=== PATIENT | female | born 1945 | race Caucasian/White ===

== ENCOUNTER → 2018-04-15 12:51 | Outpatient (CLI) | payer MEDICARE, SELFPAY ==
[2018-04-15 14:41] LABS: Hemoglobin A1c 5.7 % (4.2-6.3)
[2018-04-15 14:42] LABS: Anion Gap 8 (5-15); BUN 17 mg/dL (7-18); BUN/Creat Ratio 14.2 RATIO (10-20); Calcium,Total 8.7 mg/dL (8.5-10.1); Chloride 106 mmol/L (98-107); Cholesterol 141 mg/dL (200); EST Glomerular Filtration Rate 47 mL/min (>60); Est Glom Filt Rate - Afr Amer 57 mL/min (>60); Glucose 106 mg/dL (74-106); High Density Lipoprotein 67 mg/dL; Potassium 4.4 mmol/L (3.5-5.1); Sodium Level 140 mmol/L (136-145); Triglycerides 81 mg/dL; Very Low Density Lipoprotein 16 mg/dL (5-40)
[2018-04-15 14:47] LABS: Microalbumin,Random Urine 25.5 mg/L (NO RANGE EST.); Microalbumin:Creatinine Ratio 30.9 mg/g CRE (<30 mg/g CRE)
== END ==
PROVIDERS: Family Provider Internal Medicine; PCP Internal Medicine; Referring Provider Internal Medicine; Visit Provider Internal Medicine
DX: N18.3 Chronic kidney disease, stage 3 (moderate) (principal); Z79.899 Other long term (current) drug therapy
CPT/HCPCS: 80048; 80061; 82043; 82570; 83036

== ENCOUNTER → 2018-04-17 14:33 | Outpatient (CLI) | payer MEDICARE, SELFPAY | PROVIDERS: Family Provider Internal Medicine; PCP Internal Medicine; Referring Provider Nurse Practitioner; Visit Provider Nurse Practitioner | DX: N89.8 Other specified noninflammatory disorders of vagina (principal) | CPT/HCPCS: 87205 ==

== ENCOUNTER → 2018-10-18 | Outpatient (CLI) | payer MEDICARE, SELFPAY ==
[2015-06-28 09:12] VITALS: BMI 40.5
[2018-10-18 16:15] LABS: Hematocrit 35.5 % (37-47); Hemoglobin 11.3 g/dl (12.0-15.0); Mean Corp Hgb Conc 31.8 g/gl (32-36); Mean Corpuscular Hgb 30.9 pg (27.0-32.0); Mean Platelet Vol. 9.4 fl (6.2-12.0); Platelet Count 236 K/mm3 (150-450); RBC Distribution Width CV 13.1 % (11.6-14.6); Red Blood Count 3.66 M/mm3 (4.2-5.4); White Blood Count 6.1 K/mm3 (4.4-11.0)
[2018-10-18 16:16] LABS: Scan Indicated on CBC? Y/N NO
[2018-10-18 16:36] LABS: Vitamin B12 517 pg/mL (211-911)
[2018-10-18 17:07] LABS: Iron 54 ug/dL (50-170); Iron Binding Capacity,Total 397 ug/dL (250-450); PERCENT IRON SATURATION 13.6 % (15.0-55.0)
[2018-10-21 20:07] LABS: PROEL- A/G Ratio 1.3 (0.7-1.7); PROEL- Albumin 3.5 g/dL (2.9-4.4); PROEL- Alpha-1 Globulin 0.3 g/dL (0.0-0.4); PROEL- Alpha-2 Globulin 0.8 g/dL (0.4-1.0); PROEL- Gamma Globulin 0.7 g/dL (0.4-1.8); PROEL- Globulin, Total 2.8 g/dL (2.2-3.9); PROEL- TOTAL PROTEIN 6.3 g/dL (6.0-8.5)
== END | disposition home or self-care (01) ==
PROVIDERS: Family Provider Internal Medicine; PCP Internal Medicine; Referring Provider Internal Medicine; Visit Provider Internal Medicine
DX: D64.9 Anemia, unspecified (principal)
CPT/HCPCS: 82607; 82746; 83540; 83550; 84165; 85027

== ENCOUNTER → 2018-10-30 | Outpatient (CLI) | payer MEDICARE, SELFPAY | END | disposition home or self-care (01) | LOC: LABSPEC 15:57 | PROVIDERS: Family Provider Internal Medicine; PCP Internal Medicine; Referring Provider Nurse Practitioner; Visit Provider Nurse Practitioner | DX: Z12.11 Encounter for screening for malignant neoplasm of colon (principal) | CPT/HCPCS: 82274 ==

== ENCOUNTER → 2018-11-25 | Outpatient (CLI) | payer MEDICARE, SELFPAY ==
[2015-06-28 09:12] VITALS: BMI 40.5
[2018-11-25 16:14] LABS: Anion Gap 9 (5-15); BUN 22 mg/dL (7-18); BUN/Creat Ratio 16.7 RATIO (10-20); Calcium,Total 8.6 mg/dL (8.5-10.1); Chloride 108 mmol/L (98-107); Creatinine, Serum 1.32 mg/dL (0.55-1.02); EST Glomerular Filtration Rate 42 mL/min (>60); Est Glom Filt Rate - Afr Amer 51 mL/min (>60); Glucose 96 mg/dL (74-106); Sodium Level 139 mmol/L (136-145)
[2018-11-25 16:43] LABS: Hematocrit 35.7 % (37-47); Hemoglobin 11.3 g/dl (12.0-15.0); Mean Corp Hgb Conc 31.7 g/gl (32-36); Mean Corpuscular Hgb 30.9 pg (27.0-32.0); Mean Corpuscular Volume 97.5 fL (81-99); Mean Platelet Vol. 9.4 fl (6.2-12.0); Platelet Count 210 K/mm3 (150-450); RBC Distribution Width CV 12.8 % (11.6-14.6); RBC Distribution Width SD 43.8 fl (35.1-43.9); Red Blood Count 3.66 M/mm3 (4.2-5.4)
[2018-11-25 16:58] LABS: Hemoglobin A1c 6.9 % (4.2-6.3)
[2018-11-25 17:27] LABS: Scan Indicated on CBC? Y/N NO
== END | disposition home or self-care (01) ==
LOC: LABSPEC 15:42
PROVIDERS: Family Provider Internal Medicine; PCP Internal Medicine; Referring Provider Internal Medicine; Visit Provider Internal Medicine
DX: N18.3 Chronic kidney disease, stage 3 (moderate) (principal)
CPT/HCPCS: 80048; 83036; 85027; 96523; A4216

== ENCOUNTER → 2019-07-14 12:55 | Outpatient (CLI) | payer MEDICARE, SELFPAY ==
[2015-06-28 09:12] VITALS: BMI 40.5
[2019-07-14 13:28] LABS: ALB/GLOB Ratio 1.1 RATIO (0.9-2.4); AST(SGOT) 22 U/L (15-37); Alanine Aminotransfer ALT/SGPT 23 U/L (13-56); Albumin, Serum 3.6 g/dL (3.2-5.0); Alkaline Phosphatase 84 U/L (45-117); Anion Gap 6 (5-15); BUN 17 mg/dL (7-18); BUN/Creat Ratio 14.7 RATIO (10-20); Chloride 110 mmol/L (98-107); Cholesterol 147 mg/dL (200); Creatinine, Serum 1.16 mg/dL (0.55-1.02); EST Glomerular Filtration Rate 49 mL/min (>60); Est Glom Filt Rate - Afr Amer 59 mL/min (>60); Globulin 3.2 g/dL (2.2-4.2); Glucose 97 mg/dL (74-106); High Density Lipoprotein 70 mg/dL; Potassium 4.8 mmol/L (3.5-5.1); Protein, Total 6.8 g/dL (6.4-8.2); Sodium Level 143 mmol/L (136-145); Triglycerides 107 mg/dL; Very Low Density Lipoprotein 21 mg/dL (5-40)
[2019-07-14 13:32] LABS: Hemoglobin A1c 5.7 % (4.2-6.3)
[2019-07-14 13:35] LABS: Microalbumin,Random Urine 14.1 mg/L (NO RANGE EST.); Microalbumin:Creatinine Ratio 17.2 mg/g CRE (<30 mg/g CRE)
== END ==
PROVIDERS: Referring Provider Nurse Practitioner; Visit Provider Nurse Practitioner
DX: E11.22 Type 2 diabetes mellitus with diabetic chronic kidney disease (principal); N18.3 Chronic kidney disease, stage 3 (moderate); E78.5 Hyperlipidemia, unspecified
CPT/HCPCS: 80053; 80061; 82043; 82570; 83036

== ENCOUNTER → 2020-03-09 | Outpatient (CLI) | payer MEDICARE, SELFPAY ==
[2015-06-28 09:12] VITALS: BMI 40.5
[2020-03-09 16:52] LABS: Anion Gap 8 (5-15); BUN 17 mg/dL (7-18); BUN/Creat Ratio 13.7 RATIO (10-20); Calcium,Total 9.1 mg/dL (8.5-10.1); Chloride 106 mmol/L (98-107); Creatinine, Serum 1.24 mg/dL (0.55-1.02); EST Glomerular Filtration Rate 45 mL/min (>60); Est Glom Filt Rate - Afr Amer 55 mL/min (>60); Glucose 80 mg/dL (74-106); Potassium 4.8 mmol/L (3.5-5.1); Sodium Level 142 mmol/L (136-145)
[2020-03-09 16:59] LABS: Hemoglobin A1c 5.5 % (3.8-5.6)
== END | disposition home or self-care (01) ==
LOC: LABSPEC 15:36
PROVIDERS: PCP Internal Medicine; Referring Provider Internal Medicine; Visit Provider Internal Medicine
DX: E11.22 Type 2 diabetes mellitus with diabetic chronic kidney disease (principal); N18.3 Chronic kidney disease, stage 3 (moderate)
CPT/HCPCS: 80048; 83036

== ENCOUNTER → 2020-09-22 | Outpatient (CLI) | payer MEDICARE, SELFPAY ==
[2015-06-28 09:12] VITALS: BMI 40.5
[2020-09-22 11:29] LABS: Hemoglobin A1c 5.5 % (3.8-5.6)
[2020-09-22 11:33] LABS: Cholesterol 151 mg/dL (200); High Density Lipoprotein 77 mg/dL; Thyroid Stim Hormone (TSH) 1.56 uIU/mL (0.358-3.74); Triglycerides 85 mg/dL; Very Low Density Lipoprotein 17 mg/dL (5-40)
[2020-09-22 11:34] LABS: Microalbumin,Random Urine 24.2 mg/L (NO RANGE EST.); Microalbumin:Creatinine Ratio 37.5 mg/g CRE (<30 mg/g CRE)
== END | disposition home or self-care (01) ==
LOC: LABSPEC 10:38
PROVIDERS: PCP Internal Medicine; Referring Provider Internal Medicine; Visit Provider Internal Medicine
DX: E78.5 Hyperlipidemia, unspecified (principal); R60.0 Localized edema; E11.22 Type 2 diabetes mellitus with diabetic chronic kidney disease; N18.30 Chronic kidney disease, stage 3 unspecified
CPT/HCPCS: 80061; 82043; 82570; 83036; 84443

== ENCOUNTER → 2021-03-16 | Outpatient (CLI) | payer MEDICARE, SELFPAY ==
[2021-03-16 13:26] LABS: Hemoglobin A1c 5.7 % (3.8-5.6)
== END | disposition home or self-care (01) ==
LOC: LABSPEC 12:32
PROVIDERS: PCP Internal Medicine; Visit Provider Internal Medicine
DX: E11.22 Type 2 diabetes mellitus with diabetic chronic kidney disease (principal); N18.30 Chronic kidney disease, stage 3 unspecified
CPT/HCPCS: 83036

== ENCOUNTER 2022-10-27 18:05 | Inpatient (IN) | payer MEDICARE, SELFPAY ==
[2022-10-27 18:23] VITALS: BP 119/58; PULSE 90; PULSE 91; RESP 16; TEMP 36.4; O2SAT 97; BMI 32.5
--- NOTE | 2022-10-27 19:43 | HP.PCM_ITS ---
HPI - General General Date of Admission: 10/27/22 Date of Service: 10/30/22 Chief Complaint: Here for rehabilitation. HPI Narrative BRIAN ROSALES, is a 77 Female who presents with followin10/23/2022 Admit to [facility]. 10/23/2022 Dr. Bright performed left total hip arthroplasty direct anterior approach. 10/24/2022 Pain limiting PT/OT, tolerating diet, passing flatus. 10/25/2022 Pain control. PT/OT. SCD's/DVT prophylaxis. 10/27/2022 Admit to TCU with debility, here for rehabilitation, strengthening, prior to discharge home alone. [facility] Medical History Chronic kidney disease Debility Diabetes mellitus Fibromyalgia GERD (gastroesophageal reflux disease) Hyperlipidemia Hypertension Osteoarthritis Osteoarthritis of left hip Rheumatoid arthritis Vertigo Home Medications albuterol sulfate 90 mcg/actuation aerosol inhaler (Ventolin HFA) 2 puff inhalation Q6H PRN PRN Wheezing 06/23/15 [History Last Taken Unknown] gabapentin 100 mg capsule 100 mg PO TIDCM Check with primary doctor 06/23/15 [History Last Taken Unknown] hydrochlorothiazide 25 mg tablet 25 mg PO DAILY Check with primary doctor 06/23/15 [History Last Taken Unknown] hydroxychloroquine 200 mg tablet 200 mg PO DAILYCM Check with primary doctor 06/23/15 [History Last Taken Unknown] lisinopril 2.5 mg tablet 40 mg PO DAILY Check with primary doctor 06/23/15 [History Last Taken 06/28/15 07:30] metformin 1,000 mg tablet 1,000 mg PO DAILY Check with primary doctor 06/23/15 [History Last Taken Unknown] nortriptyline 25 mg capsule 50 mg PO QHS Check with primary doctor 06/23/15 [History Last Taken Unknown] omeprazole 20 mg capsule,delayed release 20 mg PO BID Check with primary doctor 06/23/15 [History Last Taken 06/28/15 07:30] simvastatin 10 mg tablet 40 mg PO QHS Check with primary doctor 06/23/15 [History Last Taken Unknown] aspirin 81 mg tablet 81 mg PO BID Check with primary doctor 10/27/22 [History Last Taken Unknown] diphenhydramine HCl 25 mg capsule (Benadryl) 25 mg PO Q6H PRN PRN ITCHING/HIVES 10/27/22 [History Last Taken Unknown] oxycodone 5 mg tablet 5 mg PO Q6H PRN Pain 10/27/22 [History Last Taken Unknown] Allergy/AdvReac Type Severity Reaction Status Date / Time cephalexin monohydrate Allergy Hives Verified 06/23/15 09:19 [From Keflex] codeine Allergy Hives Verified 06/23/15 09:19 ketorolac tromethamine Allergy Hives Verified 06/23/15 09:19 [From Toradol] latex Allergy Rash Verified 06/23/15 09:19 lorazepam Allergy Hives Verified 06/23/15 09:19 meloxicam [From Mobic] Allergy Chest Verified 06/23/15 09:19 tightness meperidine HCl [From Demerol] Allergy Hives Verified 06/23/15 09:19 morphine Allergy Hives Verified 06/23/15 09:19 moxifloxacin HCl Allergy Hives Verified 06/23/15 09:19 [From Avelox] oxycodone HCl [From Percocet] Allergy Hives Verified 06/23/15 09:19 phenobarbital Allergy Hives Verified 06/23/15 09:19 piroxicam [From Feldene] Allergy Hives Verified 06/23/15 09:19 propoxyphene napsylate Allergy Hives Verified 06/23/15 09:19 [From Darvocet-N] triamcinolone acetonide Allergy Rash Verified 06/28/15 09:08 [From Kenalog] celecoxib [From Celebrex] AdvReac Upset Verified 06/23/15 09:19 Stomach moxifloxacin AdvReac Nausea/Vom/ Verified 06/23/15 09:19 Diarrhea naproxen AdvReac Upset Verified 06/23/15 09:19 Stomach tramadol HCl [From Ultram] AdvReac Nausea/Vom/ Verified 06/23/15 09:19 Diarrhea Family History Father Heart disease COPD (chronic obstructive pulmonary disease) Mother Myocardial infarction Surgical History History of carpal tunnel surgery of right wrist History of section History of cholecystectomy History of rotator cuff surgery History of total bilateral knee replacement History of total left hip arthroplasty History of tubal ligation Social History household members: none Smoking Status: Current every day smoker tobacco type: cigarettes alcohol intake: never substance use type: does not use ROS Constitutional Constitutional: Denies chills, fever(s) or weight gain ENT HEENT: Denies headache(s), nasal congestion or nasal discharge Cardiovascular Cardiovascular: Denies chest pain or palpitations Respiratory/Chest Respiratory/Chest: Denies cough, excessive phlegm production or shortness of breath with exertion Gastrointestinal Gastrointestinal: Denies abdominal pain, nausea or vomiting Genitourinary Genitourinary: Denies dysuria Musculoskeletal Musculoskeletal: Denies joint pain or joint swelling Integumentary Integumentary: Denies rash or wounds Neurologic Neurologic: Denies focal weakness, numbness or tingling Psychiatric Psychiatric: Denies anxiety, auditory hallucinations, depression, homicidal ideation or suicidal ideation Vital Signs Vital Signs Vital Signs: 10/27/22 18:23 Temperature 97.5 F L Temperature Source Temporal Pulse Rate 91 Respiratory Rate 16 Blood Pressure 119/58 L Blood Pressure Mean 78 Blood Pressure Source Monitor Blood Pressure Position Semi-Fowlers Blood Pressure Location Left Arm Pulse Ox 97 Oxygen Delivery Method Room Air Physical Exam Const alert General Appearance: cooperative HEENT normocephalic Eyes PERRL and EOMs intact bilaterally Neck supple, no JVD and no carotid bruits Resp normal respiratory effort, normal air movement and clear to auscultation bilaterally Cardio regular rate and regular rhythm GI normal to inspection, nondistended, normoactive bowel sounds, non-tender and non-distended Extremity normal capillary refill General Extremity: Negative for edema Skin no rashes or lesions noted General Skin Exam: no breakdown Psych affect normal Appearance: appropriate Results Lab / Micro Data Result Diagrams: 10/30/22 05:10 10/28/22 07:05 Assessment & Plan Assessment/Plan (1) Debility: (2) Osteoarthritis of left hip: (3) History of total left hip arthroplasty: (4) Diabetes mellitus: (5) Fibromyalgia: (6) GERD (gastroesophageal reflux disease): (7) Hypertension: (8) Hyperlipidemia: (9) Chronic kidney disease: (10) Osteoarthritis: (11) Rheumatoid arthritis: (12) Vertigo: PLAN: Plan 77 year old female with below past medical history hospitalized for left total hip arthroplasty 10/23/[address] Bright, admitted to TCU with debility, here for rehabilitation, strengthening, prior to discharge home alone. * Debility - PT/OT. * Pain - Tylenol 1000mg q6h prn pain (1-3), Tramadol 50mg q6h prn pain (4-5), Oxycodone 10mg q4h prn pain (6-10). * Bowel - senna/colace 2 tablets bid, Dulcolax 10mg daily prn, MOM 30ml po x 1 prn. * Adult immunization - Administer pneumonia vaccine, covid19 vaccine, flu vaccine as appropriate. * DVT prophylaxis - Aspirin 81mg bid thru 11/23/2022. * Shortness of breath - Albuterol mdi 2 puffs q6h prn. * Hyperlipidemia - Atorvastatin 20mg qhs. * Hives - Benadryl 25mg q6h prn. * Allergic rhinitis - Flonase 1 spray nasal daily. * Fibromyalgia - Gabapentin 100mg tidcm, Nortriptyline 50mg qhs. * Hypertension - Lisinopril 40mg daily, HCTZ 25mg daily. * Rheumatoid arthritis - Plaquenil 200mg daily. * Diabetes Mellitus II - Metformin 1000mg daily. * GERD - Pantoprazole 40mg bid.
[2022-10-27] MEDS: Gabapentin 100 MG Capsule PO (21:06)
[2022-10-27] MEDS: Nortriptyline 25 MG Capsule 50 MG PO (21:07)
[2022-10-27] MEDS: Atorvastatin Calcium 20 MG Tablet PO (21:07)
[2022-10-27] MEDS: Senna/Docusate Sodium 1 Tablet 2 TABLET PO (21:08)
[2022-10-27] MEDS: oxyCODONE 5 MG Tablet PO (21:09)
--- NOTE | 2022-10-27 22:16 | NURSING ---
This nurse and EAGLE Retana witnessed pt stating she wanted her code status to be DNRCC-A, No Intubation. Pt is A&Ox3; able to state full name, birthday, month, year, and location with no difficulty.
[2022-10-28 05:00] VITALS: BP 144/55; PULSE 89
[2022-10-28] MEDS: Fluticasone 0.05% 1 SPRAY NASAL.SRY NASAL (06:01)
[2022-10-28] MEDS: Pantoprazole Sodium 20 MG Tablet PO ×2 (06:03→17:33)
[2022-10-28] MEDS: hydroCHLOROthiazide 25 MG Tablet PO (06:04)
[2022-10-28] MEDS: Lisinopril 40 MG Tablet PO (06:04)
[2022-10-28] MEDS: Senna/Docusate Sodium 1 Tablet 2 TABLET PO ×2 (06:07→17:33)
[2022-10-28] MEDS: Magnesium Hydroxide 30 ML UDC PO (06:13)
[2022-10-28 07:17] LABS: Absolute Lymphocyte Count 1.12 X10^3/uL (0.83-4.51); Absolute Neutrophil Count 5.4 X10^3/uL (2.0-7.7); Basophil# 0.04 X10^3/uL; Basophil% 0.5 % (0-1); Eosinophil# 0.48 X10^3/uL; Eosinophils% 5.8 % (0-5); Hematocrit 29.2 % (37-47); Hemoglobin 9.3 g/dL (12.0-15.0); Lymphocyte # 1.12 X10^3/ul (0.83-4.51); Lymphocyte % 13.5 % (19-41); Mean Corp Hgb Conc 31.8 g/dL (32-36); Mean Corpuscular Hgb 30.7 pg (27.0-32.0); Mean Corpuscular Volume 96.4 fL (81-99); Mean Platelet Vol. 8.9 fl (6.2-12.0); Monocyte% 14.5 % (0-10); NRBC Flagged by Analyzer 0 % (0-5); Neutrophil # 5.41 X10^3/uL (2.7-7.7); Neutrophil % 65.2 % (47-70); Platelet Count 244 K/mm3 (150-450); RBC Distribution Width CV 12.3 % (11.6-14.6); RBC Distribution Width SD 43.2 fl (35.1-43.9); Red Blood Count 3.03 M/mm3 (4.2-5.4); White Blood Count 8.3 K/mm3 (4.4-11.0)
[2022-10-28 07:57] LABS: Anion Gap 8 (5-15); BUN 34 mg/dL (7-18); BUN/Creat Ratio 25.2 RATIO (10-20); Calcium,Total 8.6 mg/dL (8.5-10.1); Chloride 102 mmol/L (98-107); Creatinine, Serum 1.35 mg/dL (0.55-1.02); EST Glomerular Filtration Rate 41 mL/min (>60); Est Glom Filt Rate - Afr Amer 49 mL/min (>60); Estimated Creatinine Clearance 25.86 ml/min; Glucose 116 mg/dL (74-106); Potassium 4.9 mmol/L (3.5-5.1); Sodium Level 134 mmol/L (136-145)
[2022-10-28] MEDS: Gabapentin 100 MG Capsule PO ×3 (08:34→17:32)
[2022-10-28] MEDS: Hydroxychloroquine 200 MG Tablet PO (08:35)
[2022-10-28] MEDS: Aspirin 81 MG TAB.CHEW PO ×2 (08:35→17:33)
[2022-10-28] MEDS: metFORMIN HCl 1,000 MG Tablet 1000 MG PO (08:36)
--- NOTE | 2022-10-28 09:55 | RAD_ITS ---
EXAM: XR ABDOMEN, 1 VIEW CLINICAL INDICATION: constipation and nausea TECHNIQUE: Frontal supine view of the abdomen/pelvis. COMPARISON: No relevant prior studies available. FINDINGS: GASTROINTESTINAL TRACT: Moderate stool burden within the large bowel. ORGANS: No organomegaly. BONES/JOINTS: Left hip prosthesis in place. SOFT TISSUES: No pathological calcification. RAD/Abdomen Single View IMPRESSION: Constipation. Electronically Signed: Chato Foreman MD at 15:05 EDT ,
[2022-10-28 10:00] VITALS: O2SAT 94
--- NOTE | 2022-10-28 11:15 | NURSING ---
Addendum entered by Krista Ivy 10/28/22 15:57: Patient also received N.O. lactulose, Lactulose was effective. Patient has extra large bowel movement, refusing SSE. Original Note: Patient c/o nausea, no BM since 10/23, Dr. Lr updated N.O. KUB, SSE, and Phenergan 25mg PO Q4H PRN.
[2022-10-28] MEDS: Tuberculin,Purif.prot.deriv. 50 TU/ML Vial 0.1 ML ID (12:00)
[2022-10-28] MEDS: Lactulose 20 GM/30 ML UDC PO (14:08)
[2022-10-28] MEDS: Albuterol IH (6.7 GM) 1 PUFF INHALER 2 PUFF INHALATION (14:42)
[2022-10-28 15:11] VITALS: BP 136/53; PULSE 87; RESP 14; TEMP 36.1; O2SAT 97
[2022-10-28 18:59] VITALS: BMI 32.6
[2022-10-28] MEDS: Atorvastatin Calcium 20 MG Tablet PO (21:04)
[2022-10-28] MEDS: Nortriptyline 25 MG Capsule 50 MG PO (21:05)
[2022-10-28] MEDS: Acetaminophen 500 MG Tablet 1000 MG PO (21:05)
[2022-10-29 06:41] LABS: Bedside Glucose 110 mg/dL (74-106)
[2022-10-29] MEDS: DiphenhydrAMINE 25 MG Capsule PO ×3 (06:48→18:57)
[2022-10-29] MEDS: hydroCHLOROthiazide 25 MG Tablet PO (06:48)
[2022-10-29] MEDS: Pantoprazole Sodium 20 MG Tablet PO ×2 (06:48→17:35)
[2022-10-29] MEDS: Lisinopril 40 MG Tablet PO (06:48)
[2022-10-29] MEDS: oxyCODONE 5 MG Tablet PO ×4 (06:48→22:22)
[2022-10-29] MEDS: Fluticasone 0.05% 1 SPRAY NASAL.SRY NASAL (06:49)
[2022-10-29 07:00] VITALS: BP 151/54; PULSE 88
[2022-10-29] MEDS: Gabapentin 100 MG Capsule PO ×3 (08:41→17:34)
[2022-10-29] MEDS: Hydroxychloroquine 200 MG Tablet PO (08:41)
[2022-10-29] MEDS: Aspirin 81 MG TAB.CHEW PO ×2 (08:41→17:35)
[2022-10-29] MEDS: metFORMIN HCl 1,000 MG Tablet 1000 MG PO (08:42)
[2022-10-29 10:00] VITALS: PULSE 80; RESP 14; O2SAT 95
[2022-10-29 13:40] VITALS: BP 127/58; PULSE 83; RESP 12; TEMP 37; O2SAT 97
--- NOTE | 2022-10-29 15:26 | NURSING ---
Silver dressing removed from left hip surgical site. No drainage noted, no swelling, redness noted. Steri Strips intact.
[2022-10-29] MEDS: Albuterol IH (6.7 GM) 1 PUFF INHALER 2 PUFF INHALATION (17:37)
[2022-10-29] MEDS: Atorvastatin Calcium 20 MG Tablet PO (20:50)
[2022-10-29] MEDS: Nortriptyline 25 MG Capsule 50 MG PO (20:50)
[2022-10-29] MEDS: Acetaminophen 500 MG Tablet 1000 MG PO (20:50)
[2022-10-30 05:32] LABS: Hematocrit 29.2 % (37-47); Hemoglobin 9.1 g/dL (12.0-15.0)
[2022-10-30] MEDS: hydroCHLOROthiazide 25 MG Tablet PO (06:35)
[2022-10-30] MEDS: Pantoprazole Sodium 20 MG Tablet PO ×2 (06:35→18:16)
[2022-10-30] MEDS: Fluticasone 0.05% 1 SPRAY NASAL.SRY NASAL (06:35)
[2022-10-30] MEDS: DiphenhydrAMINE 25 MG Capsule PO (06:36)
[2022-10-30] MEDS: oxyCODONE 5 MG Tablet PO (06:36)
[2022-10-30] MEDS: Lisinopril 40 MG Tablet PO (06:36)
[2022-10-30 06:40] VITALS: BP 141/47; PULSE 80
[2022-10-30 06:45] LABS: Bedside Glucose 102 mg/dL (74-106)
[2022-10-30] MEDS: metFORMIN HCl 1,000 MG Tablet 1000 MG PO (07:35)
[2022-10-30] MEDS: Hydroxychloroquine 200 MG Tablet PO (07:35)
[2022-10-30] MEDS: Aspirin 81 MG TAB.CHEW PO ×2 (07:35→18:16)
[2022-10-30] MEDS: Gabapentin 100 MG Capsule PO ×3 (07:40→18:21)
[2022-10-30 09:00] VITALS: PULSE 87; RESP 18; O2SAT 92
--- NOTE | 2022-10-30 12:51 | NURSING ---
Research Interviewer Note; Activity Asset: Abiola Boswell is independent in her choice of daily activities. She stated she prefers to stay in her room at this time and is not interested in group activities. She did ask for word puzzles and enjoys the watching the Guardines so she has their schedule at her bed side. She will also welcome visit from therapy dog and [place].
[2022-10-30] MEDS: traMADol 50 MG Tablet PO ×2 (13:07→21:28)
[2022-10-30] MEDS: Acetaminophen 500 MG Tablet 1000 MG PO ×2 (13:08→21:28)
[2022-10-30 13:36] VITALS: BP 110/50
[2022-10-30 14:34] VITALS: PULSE 87; RESP 20; TEMP 36.3; O2SAT 95
--- NOTE | 2022-10-30 16:23 | CHAPLAIN ---
Type of Pastoral Visit _x__ Initial Visit ___ Follow-up Visit ___ On-call Visit ___ General Patient Visit ___ Spiritual Assessment ___ Family Conference ___ Bereavement ___ Rapid Response ___ Code Blue ___ Other (describe below) Pastoral Care Referral From _x__ Patient ___ Family ___ Nurse ___ Physician ___ Capacitor Repairer ___ High Lift Driver ___ Other (describe below) Sacrament/Intervention ___ Active listening ___ Anointing ___ Mormonism ___ Bereavement ___ Communion ___ Lashaun exploration ___ ___ Life review _x__ Prayer ___ Reconciliation ___ Sacrament of Sick _x__ Supportive presence ___ Wedding ___ Other (describe below) Pastoral Comments patient was snoozing in her chair but easily awoke when this document management consultant entered the room; pt says she is hoping to rest and she is so tired; introduced self and role to patient with offer of support; pt asked for a prayer; otherwise pt says goal is to rest and that she is hoping for better days; will follow up at another time
[2022-10-30] MEDS: Nortriptyline 25 MG Capsule 50 MG PO (21:29)
[2022-10-30] MEDS: Atorvastatin Calcium 20 MG Tablet PO (21:29)
[2022-10-30] MEDS: Menthol/Lanolin/Calamine/Znox 113 GM Tube 1 APPLIC TOPICAL (21:32)
[2022-10-31] MEDS: Fluticasone 0.05% 1 SPRAY NASAL.SRY NASAL (05:14)
[2022-10-31] MEDS: hydroCHLOROthiazide 25 MG Tablet PO (05:15)
[2022-10-31] MEDS: Pantoprazole Sodium 20 MG Tablet PO ×2 (05:15→16:59)
[2022-10-31] MEDS: Lisinopril 40 MG Tablet PO (05:15)
[2022-10-31] MEDS: Menthol/Lanolin/Calamine/Znox 113 GM Tube 1 APPLIC TOPICAL ×2 (05:18→20:14)
[2022-10-31 06:26] LABS: Bedside Glucose 98 mg/dL (74-106)
[2022-10-31 07:37] VITALS: BMI 32.6
[2022-10-31] MEDS: Aspirin 81 MG TAB.CHEW PO ×2 (07:47→16:59)
[2022-10-31] MEDS: Hydroxychloroquine 200 MG Tablet PO (07:47)
[2022-10-31] MEDS: metFORMIN HCl 1,000 MG Tablet 1000 MG PO (07:47)
[2022-10-31] MEDS: Gabapentin 100 MG Capsule PO ×3 (07:47→16:59)
--- NOTE | 2022-10-31 09:46 | PHA.CONS_ITS ---
TCU RX Drug Regimen Review Subjective: TCU Admission. 77 YOF hospitalized for left total hip arthroplasty 10/23/[address] Bright. Admitted to TCU with debility for strengthening and rehabilitation. Objective: Allergies cephalexin monohydrate [From Keflex] Allergy (Verified 06/23/15 09:19) Hives codeine Allergy (Verified 06/23/15 09:19) Hives ketorolac tromethamine [From Toradol] Allergy (Verified 06/23/15 09:19) Hives latex Allergy (Verified 06/23/15 09:19) Rash lorazepam Allergy (Verified 06/23/15 09:19) Hives meloxicam [From Mobic] Allergy (Verified 06/23/15 09:19) Chest tightness meperidine HCl [From Demerol] Allergy (Verified 06/23/15 09:19) Hives morphine Allergy (Verified 06/23/15 09:19) Hives moxifloxacin HCl [From Avelox] Allergy (Verified 06/23/15 09:19) Hives oxycodone HCl [From Percocet] Allergy (Verified 06/23/15 09:19) Hives phenobarbital Allergy (Verified 06/23/15 09:19) Hives piroxicam [From Feldene] Allergy (Verified 06/23/15 09:19) Hives propoxyphene napsylate [From Darvocet-N] Allergy (Verified 06/23/15 09:19) Hives triamcinolone acetonide [From Kenalog] Allergy (Verified 06/28/15 09:08) Rash celecoxib [From Celebrex] Adverse Reaction (Verified 06/23/15 09:19) Upset Stomach moxifloxacin Adverse Reaction (Verified 06/23/15 09:19) Nausea/Vom/Diarrhea naproxen Adverse Reaction (Verified 06/23/15 09:19) Upset Stomach tramadol HCl [From Ultram] Adverse Reaction (Verified 06/23/15 09:19) Nausea/Vom/Diarrhea Current Medications Generic Name Dose Route Start Last Admin Trade Name Freq PRN Reason Stop Dose Admin Acetaminophen 1,000 mg 10/27/22 20:12 10/30/22 21:28 Acetaminophen 500 Mg Tablet PO 1,000 mg Q6H PRN PRN Administration Pain Score 1-3 Albuterol Sulfate 2 puff 10/27/22 19:08 10/29/22 17:37 Albuterol Ih (6.7 Gm) 1 Puff Inhaler INHALATION 2 puff Q6H PRN PRN Administration Wheezing Aspirin 81 mg 10/28/22 08:00 10/31/22 07:47 Aspirin 81 Mg Tab.Chew PO 11/22/22 23:59 81 mg BIDCM MEI Administration Atorvastatin Calcium 20 mg 10/27/22 22:00 10/30/22 21:29 Atorvastatin Calcium 20 Mg Tablet PO 20 mg QHS MEI Administration Baclofen 10 mg 10/30/22 07:43 Baclofen 10 Mg Tablet PO TID PRN MUSCLE SPASM Bisacodyl 10 mg 10/27/22 20:11 Bisacodyl 10 Mg Suppository RC X1 PRN Constipation Calamine/Phenol 1 applic 10/30/22 18:00 10/31/22 05:18 Menthol/Lanolin/Calamine/Znox 113 Gm Tube TOPICAL 1 applic BID MEI Administration Protocol Diphenhydramine HCl 25 mg 10/27/22 18:45 10/30/22 06:36 Diphenhydramine 25 Mg Capsule PO 25 mg Q6H PRN PRN Administration ITCHING/HIVES Fluticasone Propionate 1 spray 10/28/22 06:00 10/31/22 05:14 Fluticasone 0.05% 1 Dewar Nasal.Sry NASAL 1 spray DAILY MEI Administration Gabapentin 100 mg 10/27/22 18:45 10/31/22 07:47 Gabapentin 100 Mg Capsule PO 100 mg TIDCM MEI Administration Hydrochlorothiazide 25 mg 10/28/22 06:00 10/31/22 05:15 Hydrochlorothiazide 25 Mg Tablet PO 25 mg DAILY MEI Administration Hydroxychloroquine Sulfate 200 mg 10/28/22 08:00 10/31/22 07:47 Hydroxychloroquine 200 Mg Tablet PO 200 mg DAILYCM MEI Administration Lisinopril 40 mg 10/28/22 06:00 10/31/22 05:15 Lisinopril 40 Mg Tablet PO 40 mg DAILY MEI Administration Magnesium Hydroxide 30 ml 10/27/22 20:11 10/28/22 06:13 Magnesium Hydroxide 30 Ml Udc PO 30 ml X1 PRN Administration Constipation Metformin HCl 1,000 mg 10/28/22 08:00 10/31/22 07:47 Metformin Hcl 1,000 Mg Tablet PO 1,000 mg DAILYCM MEI Administration Nortriptyline HCl 50 mg 10/27/22 22:00 10/30/22 21:29 Nortriptyline 25 Mg Capsule PO 50 mg QHS MEI Administration Oxycodone HCl 10 mg 10/30/22 07:40 Oxycodone 5 Mg Tablet PO Q4H PRN PRN Pain Score 6-10 Pantoprazole Sodium 20 mg 10/28/22 06:00 10/31/22 05:15 Pantoprazole Sodium 20 Mg Tablet PO 20 mg BID MEI Administration Promethazine HCl 25 mg 10/28/22 09:56 Promethazine 25 Mg Tablet PO Q4H PRN PRN NAUSEA/VOMITING Senna/Docusate Sodium 2 tablet 10/27/22 20:15 10/31/22 05:18 Senna/Docusate Sodium 1 Tablet PO Not Given BID MEI Tramadol HCl 50 mg 10/30/22 07:40 10/30/22 21:28 Tramadol 50 Mg Tablet PO 50 mg Q6H PRN PRN Administration Pain Score 4-5 Tuberculin PPD 0.1 ml 11/04/22 10:00 Tuberculin,Purif.Prot.Deriv. 50 Tu/Ml Vial ID 11/04/22 10:01 X1 ONE Problem List (Last Reviewed 10/28/22 @ 00:50 by Nuria Presley) Vertigo (Acute) Rheumatoid arthritis (Acute) Osteoarthritis (Acute) Chronic kidney disease (Chronic) Hyperlipidemia (Acute) Hypertension (Chronic) GERD (gastroesophageal reflux disease) (Acute) Fibromyalgia (Acute) Diabetes mellitus (Acute) History of total left hip arthroplasty (Acute) Osteoarthritis of left hip (Acute) Debility (Acute) Vital Signs Temp Pulse Resp BP Pulse Ox O2 Del Method 97.3 F L 87 20 H 110/50 L 95 Room Air 10/30/22 14:34 10/30/22 14:34 10/30/22 14:34 10/30/22 13:36 10/30/22 14:34 10/30/22 14:34 Oxygen Delivery Method Room Air Weight: 75.795 kg Body Mass Index (BMI) 32.6 Sodium 134 mmol/L (136-145) L 10/28/22 07:05 Potassium 4.9 mmol/L (3.5-5.1) 10/28/22 07:05 Chloride 102 mmol/L (98-107) 10/28/22 07:05 Carbon Dioxide 24.0 mmol/L (21.0-32.0) 10/28/22 07:05 Anion Gap 8 (5-15) 10/28/22 07:05 BUN 34 mg/dL (7-18) H 10/28/22 07:05 Creatinine 1.35 mg/dL (0.55-1.02) H 10/28/22 07:05 Est GFR (MDRD) Af Amer 49 mL/min (>60) L 10/28/22 07:05 Est GFR (MDRD) Non-Af 41 mL/min (>60) L 10/28/22 07:05 BUN/Creatinine Ratio 25.2 RATIO (10-20) H 10/28/22 07:05 Glucose 116 mg/dL (74-106) H 10/28/22 07:05 Assessment/Plan: 1. Pain: acetaminophen 1000mg PO Q6H PRN pain 1-3, tramadol 50mg PO Q6H PRN pain 4-5 and oxycodone 10mg PO Q4H PRN pain 6-10. Resident has not had any oxycodone, but has had 2 doses of tramadol and 4 doses of acetaminophen for pain scores of 3,6-7 in the hip/knee. Please continue to monitor for increased pain, PRN usage, renal function, constipation and respiratory depression. 2. Bowel: senna/docusate 2T PO BID, bisacodyl 10mg RC x1 PRN constipation and MOM 30mL PO x1 PRN constipation. Resident has had 1 dose of MOM and last documented bowel movement was 5/7. Resident has refused 5 of the last 8 doses of senna/docusate. Please consider changing from scheduled to PRN. Thanks. Please continue to monitor for constipation and PRN usage. 3. DVT prophylaxis: aspirin 81mg PO BIDCM thru 11/22/22. Please continue to monitor for S/S of bleeding/DVT and hemoglobin (last 9.1g/dL). 4. Hyperlipidemia: atorvastatin 20mg PO QHS. Please consider ordering a lipid panel and AST/ALT as the last levels are from 09/22/20 and 07/14/19 respectively. Thanks. Please continue to monitor for muscle pain. 5. Hypertension: lisinopril 40mg PO daily and hydrochlorothiazide 25mg PO daily. Please continue to monitor BP (last 110/50), potassium (last 4.9mmol/L), cough, renal function and sodium. 6. Diabetes mellitus II: metformin 1000mg PO DAILYCM. Please consider ordering a hemoglobin A1c as the last was from 02/2021. Thanks. Please continue to monitor for S/S of hypoglycemia, glucose (last 98 mg/dL), diarrhea and GFR (last 41 mL/min). 7. Rheumatoid arthritis: hydroxychloroquine 200mg PO daily. Please continue to monitor for S/S of RA, CBC, rash and vision changes. 8. GERD: pantoprazole 40mg PO BID. Please continue to monitor for S/S of GERD and diarrhea (BEERs medication). 9. Allergic rhinitis: fluticasone nasal spray 0.05% 1spray nasal daily. Please continue to monitor for S/S of allergies. 10. Shortness of breath: albuterol MDI 2puff Q6H PRN wheezing. Resident has used 2 doses so far. Please continue to monitor for SOB, wheezing, PRN usage and HR following administration. 11. Nausea/vomiting: promethazine 25mg PO Q4H PRN nausea/vomiting. Resident as not used any doses. Please continue to monitor for nausea/vomiting and PRN usage. 12. Hives: diphenhydramine 25mg PO Q6H PRN itching/hives. Resident has used 4 doses. Please continue to monitor for hives, itching, anticholinergic side effects (BEERs medication), delirium/dementia (BEERs medication) and drowsiness. 13. Muscle spasm: baclofen 10mg PO TID PRN muscle spasm. Resident has not used any doses. Please continue to monitor for muscle spasms and PRN usage. Assessment/Plan for indications treated with psychotropic medications: 1. Fibromyalgia: gabapentin 100mg PO TIDCM and nortriptyline 50mg PO QHS. Based on a CrCl of 32.7 mL/min (using adjusted BW) gabapentin dose should be a maximum of 400-1400mg/day in 2 doses. Please consider changing frequency to BID to reduce the risk of MEDTRONICS TECHNICIAN adverse effects. Thanks. GDR not appropriate for nortriptyline as this medication is being used for fibromyalgia. Please continue to monitor for falls/fractures (BEERs medication), delirium/dementia (BEERs medication), sodium (last 134mmol/L) and anticholinergic side effects (BEERs medication). Medical chart and medication regimen reviewed. The following medication irregularities or issues were identified: *1. Senna/docusate 2T PO BID. Resident has refused 5 of the last 8 doses of senna/docusate. Please consider changing from scheduled to PRN. Thanks. *2. Atorvastatin 20mg PO QHS. Please consider ordering a lipid panel and AST/ALT as the last levels are from 09/22/20 and 07/14/19 respectively. Thanks. *3. Gabapentin 100mg PO TIDCM. Based on a CrCl of 32.7 mL/min (using adjusted BW) gabapentin dose should be a maximum of 400-1400mg/day in 2 doses. Please consider changing frequency to BID to reduce the risk of MEDTRONICS TECHNICIAN adverse effects. Thanks. *4. Metformin 1000mg PO DAILYCM. Please consider ordering a hemoglobin A1c as the last was from 02/2021. Thanks. Date of Note:: 10/31/22
--- NOTE | 2022-10-31 10:21 | CASEMGMT ---
Social Work Met with patient to complete initial assessment. Introduced self and role. Verified/updated contacts. Discussed code status and MOLST form. Pt confirms DNR-CCA, no intubation. MOLST placed in Dr folder. Educated to [facility] insurance with NRD 11/02 and continued stay is not guaranteed with each review. Pt's goal is to return home alone with improved function and abilities to care for ADLs and IADLs. SW to continue to follow for DC planning. Sue Ybarra, MARRIAGE COUNSELOR MINISTER SAMPLING EXPERT
[2022-10-31 14:46] VITALS: BP 136/52; PULSE 85; RESP 16; TEMP 36.2; O2SAT 99
--- NOTE | 2022-10-31 19:53 | NURSING ---
BSC emptied and urine is dark and clear. No foul odor noted. Questioned pt if she is consuming an adequate amount of fluids and becomes irritated. Encouraged fluids, especially water. Took a few sips after transferred to bed. Will continue to monitor.
[2022-10-31] MEDS: traMADol 50 MG Tablet PO (20:05)
[2022-10-31] MEDS: Atorvastatin Calcium 20 MG Tablet PO (20:06)
[2022-10-31] MEDS: DiphenhydrAMINE 25 MG Capsule PO (20:06)
[2022-10-31] MEDS: Nortriptyline 25 MG Capsule 50 MG PO (20:06)
[2022-10-31] MEDS: Acetaminophen 500 MG Tablet 1000 MG PO (20:06)
[2022-10-31 20:17] VITALS: PULSE 79; RESP 18; O2SAT 97
[2022-11-01] MEDS: Fluticasone 0.05% 1 SPRAY NASAL.SRY NASAL (05:04)
[2022-11-01 05:05] VITALS: BP 144/51; PULSE 77
[2022-11-01] MEDS: Lisinopril 40 MG Tablet PO (05:05)
[2022-11-01] MEDS: Senna/Docusate Sodium 1 Tablet 2 TABLET PO ×2 (05:05→18:22)
[2022-11-01] MEDS: hydroCHLOROthiazide 25 MG Tablet PO (05:06)
[2022-11-01] MEDS: Menthol/Lanolin/Calamine/Znox 113 GM Tube 1 APPLIC TOPICAL ×2 (05:06→18:22)
[2022-11-01] MEDS: Pantoprazole Sodium 20 MG Tablet PO ×2 (05:06→18:22)
[2022-11-01 05:53] LABS: Hematocrit 29.9 % (37-47); Hemoglobin 9.4 g/dL (12.0-15.0)
[2022-11-01 06:40] LABS: Bedside Glucose 91 mg/dL (74-106)
[2022-11-01] MEDS: Gabapentin 100 MG Capsule PO ×3 (08:04→18:22)
[2022-11-01] MEDS: Hydroxychloroquine 200 MG Tablet PO (08:04)
[2022-11-01] MEDS: traMADol 50 MG Tablet PO ×2 (08:04→22:08)
[2022-11-01] MEDS: DiphenhydrAMINE 25 MG Capsule PO ×2 (08:04→15:25)
[2022-11-01] MEDS: Aspirin 81 MG TAB.CHEW PO ×2 (08:04→18:22)
[2022-11-01] MEDS: metFORMIN HCl 1,000 MG Tablet 1000 MG PO (08:04)
[2022-11-01] MEDS: Acetaminophen 500 MG Tablet 1000 MG PO ×2 (09:43→22:08)
[2022-11-01] MEDS: Magnesium Hydroxide 30 ML UDC PO (09:44)
[2022-11-01 09:50] VITALS: PULSE 87; RESP 16; O2SAT 96
--- NOTE | 2022-11-01 09:54 | CASEMGMT ---
Social Work IDT met with patient and son for care plan meeting. Discussed patient's progress in PT/OT/SN. Educated to [facility] insurance with NRD 11/02 and continued stay is not guaranteed with each review. Pt's goal is to return home alone, has 3 BRAYDON. Pt has to return to PLOF to return home alone. Son does work full-time. SW offered to assist with [place] paperwork. SW to continue to follow for DC planning. Sue Ybarra, SEX OFFENDER TREATMENT PROFESSIONAL BOILER HOUSE OPERATOR
[2022-11-01 14:10] VITALS: BP 122/40; PULSE 82; RESP 18; TEMP 35.8; O2SAT 95
--- NOTE | 2022-11-01 14:40 | NURSING ---
Pt left floor for [facility] appointment at 1420 with friend
[2022-11-01] MEDS: oxyCODONE 5 MG Tablet 10 MG PO (15:26)
--- NOTE | 2022-11-01 16:56 | NURSING ---
Addendum entered by Sabas Angeles 11/01/22 18:32: Dr. Lr aware and ordered doppler Original Note: Therapy reported increased pain and swelling to LLE during ADL this morning. Two staff nurses assessed, no concerning edema, Lft foot slightly swollen. BLE pulses palpable, no warm/redness noted. Minimal swelling to surgical site observed, site well approximated, no drainage or redness. Pt having lots of pain today, administered PRNs and applied polar care. PRN oxy and redirection effective.
--- NOTE | 2022-11-01 18:34 | NURSING ---
Therapy reported increased pain and swelling to LLE during ADL this morning. Two staff nurses assessed, no concerning edema, Lft foot slightly swollen. BLE pulses palpable, no warm/redness noted. Minimal swelling to surgical site observed, site well approximated, no drainage or redness. Pt having lots of pain today, administered PRNs and applied polar care. PRN oxy and redirection effective. Dr. Lr aware and ordered Doppler, pt updated.
[2022-11-01] MEDS: Atorvastatin Calcium 20 MG Tablet PO (22:04)
[2022-11-01] MEDS: Nortriptyline 25 MG Capsule 50 MG PO (22:04)
[2022-11-02] MEDS: Lisinopril 40 MG Tablet PO (05:55)
[2022-11-02] MEDS: hydroCHLOROthiazide 25 MG Tablet PO (05:55)
[2022-11-02] MEDS: Fluticasone 0.05% 1 SPRAY NASAL.SRY NASAL (05:55)
[2022-11-02] MEDS: Senna/Docusate Sodium 1 Tablet 2 TABLET PO ×2 (05:55→17:24)
[2022-11-02] MEDS: Pantoprazole Sodium 20 MG Tablet PO ×2 (05:56→17:24)
[2022-11-02] MEDS: Menthol/Lanolin/Calamine/Znox 113 GM Tube 1 APPLIC TOPICAL (05:57)
[2022-11-02 07:46] LABS: Bedside Glucose 97 mg/dL (74-106)
[2022-11-02] MEDS: Aspirin 81 MG TAB.CHEW PO ×2 (08:47→17:24)
[2022-11-02] MEDS: metFORMIN HCl 1,000 MG Tablet 1000 MG PO (08:47)
[2022-11-02] MEDS: Hydroxychloroquine 200 MG Tablet PO (08:47)
[2022-11-02] MEDS: Gabapentin 100 MG Capsule PO ×3 (08:48→17:24)
[2022-11-02] MEDS: DiphenhydrAMINE 25 MG Capsule PO ×2 (09:02→17:25)
[2022-11-02] MEDS: traMADol 50 MG Tablet PO ×2 (09:03→17:24)
[2022-11-02 09:07] VITALS: BP 92/68; PULSE 68
[2022-11-02] MEDS: Lactulose 20 GM/30 ML UDC 40 GM PO (09:59)
--- NOTE | 2022-11-02 11:15 | CASEMGMT ---
Social Work BIMS () and PHQ-9 (10/19) completed for MDS assessment. Sue Ybarra MSW ASSISTANT STORE MANAGER TRAINEE
--- NOTE | 2022-11-02 13:58 | MDS.RN ---
Pain interview for RAYMOND 11/03/22
[2022-11-02 15:23] VITALS: BP 125/44; PULSE 70; RESP 13; TEMP 36.9; O2SAT 98
--- NOTE | 2022-11-02 15:31 | NURSING ---
Pt received order for PO lactulose, given this AM with positive results.
[2022-11-02] MEDS: Acetaminophen 500 MG Tablet 1000 MG PO (17:25)
[2022-11-02 21:30] VITALS: PULSE 72; RESP 16; O2SAT 97
[2022-11-02] MEDS: Nortriptyline 25 MG Capsule 50 MG PO (21:42)
[2022-11-02] MEDS: Atorvastatin Calcium 20 MG Tablet PO (21:42)
[2022-11-03] MEDS: traMADol 50 MG Tablet PO ×3 (05:49→20:23)
[2022-11-03] MEDS: DiphenhydrAMINE 25 MG Capsule PO ×2 (05:50→11:49)
[2022-11-03] MEDS: Fluticasone 0.05% 1 SPRAY NASAL.SRY NASAL (05:50)
[2022-11-03] MEDS: Pantoprazole Sodium 20 MG Tablet PO ×2 (05:51→17:00)
[2022-11-03] MEDS: Lisinopril 40 MG Tablet PO (05:51)
[2022-11-03] MEDS: hydroCHLOROthiazide 25 MG Tablet PO (05:51)
[2022-11-03 06:36] LABS: Bedside Glucose 95 mg/dL (74-106)
[2022-11-03 06:56] VITALS: BP 114/45; PULSE 73
[2022-11-03] MEDS: Aspirin 81 MG TAB.CHEW PO ×2 (07:48→16:58)
[2022-11-03] MEDS: Hydroxychloroquine 200 MG Tablet PO (07:48)
[2022-11-03] MEDS: Gabapentin 100 MG Capsule PO ×3 (07:48→16:58)
[2022-11-03] MEDS: metFORMIN HCl 1,000 MG Tablet 1000 MG PO (07:48)
[2022-11-03] MEDS: Menthol/Lanolin/Calamine/Znox 113 GM Tube 1 APPLIC TOPICAL ×2 (07:53→17:00)
[2022-11-03 13:35] VITALS: BP 96/37; PULSE 79; RESP 15; TEMP 36.1; O2SAT 93
[2022-11-03] MEDS: Senna/Docusate Sodium 1 Tablet 2 TABLET PO (17:00)
[2022-11-03] MEDS: Atorvastatin Calcium 20 MG Tablet PO (20:23)
[2022-11-03] MEDS: Nortriptyline 25 MG Capsule 50 MG PO (20:23)
[2022-11-04] MEDS: oxyCODONE 5 MG Tablet 10 MG PO ×3 (00:05→19:54)
[2022-11-04] MEDS: Acetaminophen 500 MG Tablet 1000 MG PO ×2 (00:06→19:53)
[2022-11-04] MEDS: DiphenhydrAMINE 25 MG Capsule PO ×2 (00:08→19:53)
[2022-11-04 05:30] VITALS: BP 106/54; PULSE 73
[2022-11-04] MEDS: Fluticasone 0.05% 1 SPRAY NASAL.SRY NASAL (06:24)
[2022-11-04] MEDS: Pantoprazole Sodium 20 MG Tablet PO ×2 (06:25→17:52)
[2022-11-04] MEDS: hydroCHLOROthiazide 25 MG Tablet PO (06:25)
[2022-11-04] MEDS: Menthol/Lanolin/Calamine/Znox 113 GM Tube 1 APPLIC TOPICAL ×2 (06:26→22:40)
--- NOTE | 2022-11-04 06:31 | NURSING ---
Lisinopril held at this time d/t low BP and pt is slightly drowsy. Will continue to monitor and report to oncoming nurse.
[2022-11-04 06:50] LABS: Bedside Glucose 70 mg/dL (74-106)
[2022-11-04 08:44] LABS: Absolute Lymphocyte Count 2.02 X10^3/uL (0.83-4.51); Absolute Neutrophil Count 9.5 X10^3/uL (2.0-7.7); Basophil# 0.08 X10^3/uL; Basophil% 0.6 % (0-1); Eosinophil# 0.75 X10^3/uL; Eosinophils% 5.4 % (0-5); Hemoglobin 9.1 g/dL (12.0-15.0); Lymphocyte # 2.02 X10^3/ul (0.83-4.51); Lymphocyte % 14.6 % (19-41); Mean Corp Hgb Conc 31.4 g/dL (32-36); Mean Corpuscular Hgb 30.1 pg (27.0-32.0); Mean Platelet Vol. 8.6 fl (6.2-12.0); Monocyte# 1.16 X10^3/uL; Monocyte% 8.4 % (0-10); NRBC Flagged by Analyzer 0 % (0-5); Neutrophil # 9.54 X10^3/uL (2.7-7.7); Neutrophil % 69.2 % (47-70); Platelet Count 534 K/mm3 (150-450); RBC Distribution Width CV 11.9 % (11.6-14.6); RBC Distribution Width SD 41.5 fl (35.1-43.9); Red Blood Count 3.02 M/mm3 (4.2-5.4); White Blood Count 13.8 K/mm3 (4.4-11.0)
[2022-11-04] MEDS: Aspirin 81 MG TAB.CHEW PO ×2 (08:47→17:51)
[2022-11-04] MEDS: Gabapentin 100 MG Capsule PO ×3 (08:47→17:51)
[2022-11-04] MEDS: Hydroxychloroquine 200 MG Tablet PO (08:49)
[2022-11-04] MEDS: metFORMIN HCl 500 MG Tablet PO (08:58)
[2022-11-04 09:01] VITALS: BP 100/46
[2022-11-04 09:07] LABS: Anion Gap 7 (5-15); BUN 44 mg/dL (7-18); Calcium,Total 8.9 mg/dL (8.5-10.1); Chloride 91 mmol/L (98-107); Creatinine, Serum 1.63 mg/dL (0.55-1.02); EST Glomerular Filtration Rate 33 mL/min (>60); Est Glom Filt Rate - Afr Amer 40 mL/min (>60); Estimated Creatinine Clearance 21.42 ml/min; Glucose 121 mg/dL (74-106); Sodium Level 124 mmol/L (136-145)
[2022-11-04] MEDS: Tuberculin,Purif.prot.deriv. 50 TU/ML Vial 0.1 ML ID (10:41)
--- NOTE | 2022-11-04 12:46 | NURSING ---
dr thrasher notified of elvated WBC's and low NA, new orders received at this time.
--- NOTE | 2022-11-04 13:00 | RAD_ITS ---
STUDY: X-RAY CHEST REASON FOR EXAM: Female, 77 years old. elevated WBCs TECHNIQUE: PA and lateral views of the chest. COMPARISON: None. FINDINGS: The lungs are clear and expanded. There is no demonstrated pleural abnormality. Normal size heart. Normal mediastinum and oral. Normal visualized pulmonary arteries. Normal visualized aortic arch and descending thoracic aorta. There are diffuse degenerative changes of the visualized thoracic spine. Right shoulder prosthesis noted. Severe DJD of the left shoulder. There is no demonstrated abnormality of the visualized soft tissue structures of the upper abdomen. RAD/Chest PA and Lateral IMPRESSION: Degenerative changes, as described above. No demonstrated acute cardiopulmonary process. Electronically Signed: Carl Tillman MD at 14:40 EDT ,
[2022-11-04 13:05] LABS: Osmolality, Serum 275 mOsm/KG (280-301)
[2022-11-04 13:49] LABS: Mucous, Urine 0 SEEN /hpf (<or=2+); Red Blood Cells-Urine 0 SEEN /hpf (0-5); Squamous Epithelial Cells - UA 0 SEEN /hpf (5-10); White Blood Cells 0 SEEN /hpf (0-5)
[2022-11-04 13:56] LABS: Color, Urine Yellow (Yellow); Glucose, Dipstick Normal (Normal); Ketone-Dipstick Negative (Negative); Leukocyte Esterase-Dipstick Negative /ul (Negative); Nitrite-Dipstick Negative (Negative); Occult Blood-Urine Negative /ul (Negative); Protein-Dipstick Negative (Negative); Urine Bilirubin Dipstick Negative (Negative); Urine Clarity Clear (Clear); Urine Urobilinogen Normal (Normal)
[2022-11-04 14:09] LABS: Bacteria RARE /hpf (None Seen)
[2022-11-04] MEDS: 0.9% Normal Saline 1,000 ML 75 ML IV (15:19)
[2022-11-04 16:00] VITALS: BP 113/46; PULSE 66; RESP 16; TEMP 35.9; O2SAT 94
[2022-11-04 16:45] LABS: Urine Sodium 17 mmol/L (Not Establ.)
[2022-11-04 17:02] LABS: Osmolality, Urine 242 mOsm/KG
[2022-11-04 17:10] LABS: Bedside Glucose 111 mg/dL (74-106)
[2022-11-04] MEDS: Nortriptyline 25 MG Capsule 50 MG PO (22:39)
[2022-11-04] MEDS: Atorvastatin Calcium 20 MG Tablet PO (22:39)
--- NOTE | 2022-11-05 01:21 | NURSING ---
Spoke w/ Sasha is respiratory to question if department is aware pt was to have a respiratory panel collected yesterday. Per Sasha, department must not have been notified. She will plan to collect specimen later this shift as she notes swabs will not be run at this time.
[2022-11-05] MEDS: Acetaminophen 500 MG Tablet 1000 MG PO ×2 (02:24→17:23)
[2022-11-05] MEDS: oxyCODONE 5 MG Tablet 10 MG PO (02:25)
[2022-11-05] MEDS: DiphenhydrAMINE 25 MG Capsule PO ×2 (02:28→21:32)
[2022-11-05] MEDS: 0.9% Normal Saline 1,000 ML 75 ML IV (04:44)
[2022-11-05] MEDS: Menthol/Lanolin/Calamine/Znox 113 GM Tube 1 APPLIC TOPICAL ×2 (04:47→17:26)
[2022-11-05] MEDS: Fluticasone 0.05% 1 SPRAY NASAL.SRY NASAL (04:49)
[2022-11-05] MEDS: Pantoprazole Sodium 20 MG Tablet PO ×2 (04:51→17:24)
[2022-11-05 05:15] VITALS: BP 92/36; PULSE 69
[2022-11-05 06:06] LABS: Absolute Lymphocyte Count 1.52 X10^3/uL (0.83-4.51); Absolute Neutrophil Count 8.9 X10^3/uL (2.0-7.7); Basophil# 0.06 X10^3/uL; Basophil% 0.5 % (0-1); Eosinophils% 4.8 % (0-5); Hematocrit 24.2 % (37-47); Hemoglobin 7.7 g/dL (12.0-15.0); Lymphocyte # 1.52 X10^3/ul (0.83-4.51); Lymphocyte % 12.3 % (19-41); Mean Corp Hgb Conc 31.8 g/dL (32-36); Mean Corpuscular Hgb 30.6 pg (27.0-32.0); Mean Platelet Vol. 8.6 fl (6.2-12.0); Monocyte# 1.12 X10^3/uL; NRBC Flagged by Analyzer 0 % (0-5); Neutrophil # 8.91 X10^3/uL (2.7-7.7); Platelet Count 449 K/mm3 (150-450); RBC Distribution Width CV 11.8 % (11.6-14.6); RBC Distribution Width SD 41.4 fl (35.1-43.9); Red Blood Count 2.52 M/mm3 (4.2-5.4); White Blood Count 12.4 K/mm3 (4.4-11.0)
[2022-11-05 06:38] LABS: Anion Gap 6 (5-15); BUN 40 mg/dL (7-18); BUN/Creat Ratio 33.9 RATIO (10-20); Calcium,Total 7.9 mg/dL (8.5-10.1); Chloride 95 mmol/L (98-107); Creatinine, Serum 1.18 mg/dL (0.55-1.02); EST Glomerular Filtration Rate 47 mL/min (>60); Est Glom Filt Rate - Afr Amer 57 mL/min (>60); Estimated Creatinine Clearance 29.59 ml/min; Glucose 83 mg/dL (74-106); Potassium 5.3 mmol/L (3.5-5.1); Sodium Level 124 mmol/L (136-145)
[2022-11-05 06:45] LABS: Bedside Glucose 98 mg/dL (74-106)
[2022-11-05] MEDS: Gabapentin 100 MG Capsule PO ×3 (08:15→17:24)
[2022-11-05] MEDS: Aspirin 81 MG TAB.CHEW PO ×2 (08:16→17:24)
[2022-11-05] MEDS: metFORMIN HCl 500 MG Tablet PO (08:16)
[2022-11-05] MEDS: Hydroxychloroquine 200 MG Tablet PO (08:16)
--- NOTE | 2022-11-05 09:49 | NURSING ---
Addendum entered by Oscar Alcantara 11/05/22 15:01: POSITIVE RESULTS FROM THE KAYEXALATE! LARGE SOFT. Original Note: LABS HGB 7.7,POTASSIUM 5.3,CALCIUM 7.9,SODIUM 124. NEW ORDERS FROM TO D/C THE RUNNING FLUIDS, 1500 FLUID RESTRICTION,AND KAYEXALATE TO BE GIVEN.
[2022-11-05] MEDS: Sodium Polystyrene Sulfonate 15 GM/60 ML UDC 30 GM PO (09:54)
[2022-11-05 10:00] VITALS: PULSE 75; RESP 18; O2SAT 98
[2022-11-05 15:27] VITALS: BP 114/55; PULSE 75; RESP 18; TEMP 36.3; O2SAT 98
[2022-11-05] MEDS: Senna/Docusate Sodium 1 Tablet 2 TABLET PO (17:24)
[2022-11-05] MEDS: traMADol 50 MG Tablet PO (21:31)
[2022-11-05] MEDS: Nortriptyline 25 MG Capsule 50 MG PO (21:32)
[2022-11-05] MEDS: Atorvastatin Calcium 20 MG Tablet PO (21:32)
[2022-11-06] MEDS: Pantoprazole Sodium 20 MG Tablet PO ×2 (05:13→18:21)
[2022-11-06] MEDS: Senna/Docusate Sodium 1 Tablet 2 TABLET PO (05:13)
[2022-11-06] MEDS: Acetaminophen 500 MG Tablet 1000 MG PO ×3 (05:16→20:49)
[2022-11-06] MEDS: Fluticasone 0.05% 1 SPRAY NASAL.SRY NASAL (05:18)
[2022-11-06] MEDS: Menthol/Lanolin/Calamine/Znox 113 GM Tube 1 APPLIC TOPICAL ×2 (05:20→18:21)
[2022-11-06 05:51] LABS: Absolute Neutrophil Count 8.5 X10^3/uL (2.0-7.7); Basophil# 0.06 X10^3/uL; Basophil% 0.5 % (0-1); Eosinophil# 0.56 X10^3/uL; Eosinophils% 4.9 % (0-5); Hematocrit 26.6 % (37-47); Hemoglobin 8.5 g/dL (12.0-15.0); Lymphocyte % 9.7 % (19-41); Mean Corpuscular Hgb 30.2 pg (27.0-32.0); Mean Corpuscular Volume 94.7 fL (81-99); Mean Platelet Vol. 8.6 fl (6.2-12.0); Monocyte# 1.04 X10^3/uL; Monocyte% 9.2 % (0-10); NRBC Flagged by Analyzer 0 % (0-5); Neutrophil # 8.45 X10^3/uL (2.7-7.7); Neutrophil % 74.6 % (47-70); Platelet Count 506 K/mm3 (150-450); RBC Distribution Width CV 11.8 % (11.6-14.6); RBC Distribution Width SD 40.6 fl (35.1-43.9); Red Blood Count 2.81 M/mm3 (4.2-5.4); White Blood Count 11.3 K/mm3 (4.4-11.0)
[2022-11-06 06:15] LABS: Bedside Glucose 85 mg/dL (74-106)
[2022-11-06 06:26] LABS: Anion Gap 8 (5-15); BUN 33 mg/dL (7-18); Calcium,Total 8.6 mg/dL (8.5-10.1); Chloride 96 mmol/L (98-107); EST Glomerular Filtration Rate 57 mL/min (>60); Est Glom Filt Rate - Afr Amer 70 mL/min (>60); Estimated Creatinine Clearance 34.91 ml/min; Glucose 91 mg/dL (74-106); Potassium 4.5 mmol/L (3.5-5.1); Sodium Level 131 mmol/L (136-145)
[2022-11-06] MEDS: metFORMIN HCl 500 MG Tablet PO (09:34)
[2022-11-06] MEDS: Gabapentin 100 MG Capsule PO ×3 (09:35→18:20)
[2022-11-06] MEDS: Iron Polysaccharide Complex 150 MG CAPSULE PO (09:35)
[2022-11-06] MEDS: Aspirin 81 MG TAB.CHEW PO ×2 (09:35→18:20)
[2022-11-06] MEDS: Ascorbic Acid 500 MG Tablet PO (09:35)
[2022-11-06] MEDS: Hydroxychloroquine 200 MG Tablet PO (09:35)
[2022-11-06] MEDS: traMADol 50 MG Tablet PO ×2 (14:06→20:50)
[2022-11-06] MEDS: DiphenhydrAMINE 25 MG Capsule PO ×2 (14:07→20:49)
[2022-11-06 14:10] VITALS: BP 109/52; PULSE 85; RESP 16; TEMP 36.2; O2SAT 99
--- NOTE | 2022-11-06 15:16 | NURSING ---
Offered covid booster, education provided on vaccine. Patient refuses at this time.
--- NOTE | 2022-11-06 16:50 | NURSING ---
Patient granted permission to update SonIrving and add him to contact list.
[2022-11-06] MEDS: Nortriptyline 25 MG Capsule 50 MG PO (20:49)
[2022-11-06] MEDS: Atorvastatin Calcium 20 MG Tablet PO (20:49)
[2022-11-06 21:30] VITALS: O2SAT 95
[2022-11-06 22:05] LABS: Bedside Glucose 197 mg/dL (74-106)
[2022-11-07] MEDS: Pantoprazole Sodium 20 MG Tablet PO ×2 (06:05→17:41)
[2022-11-07] MEDS: Fluticasone 0.05% 1 SPRAY NASAL.SRY NASAL (06:05)
[2022-11-07] MEDS: Menthol/Lanolin/Calamine/Znox 113 GM Tube 1 APPLIC TOPICAL ×2 (06:07→17:43)
[2022-11-07 06:43] LABS: Anion Gap 5 (5-15); BUN 34 mg/dL (7-18); BUN/Creat Ratio 31.2 RATIO (10-20); Calcium,Total 8.4 mg/dL (8.5-10.1); Chloride 102 mmol/L (98-107); Creatinine, Serum 1.09 mg/dL (0.55-1.02); EST Glomerular Filtration Rate 52 mL/min (>60); Est Glom Filt Rate - Afr Amer 63 mL/min (>60); Estimated Creatinine Clearance 32.03 ml/min; Glucose 111 mg/dL (74-106); Potassium 4.6 mmol/L (3.5-5.1); Sodium Level 136 mmol/L (136-145)
[2022-11-07 08:05] LABS: Absolute Lymphocyte Count 1.49 X10^3/uL (0.83-4.51); Absolute Neutrophil Count 9.5 X10^3/uL (2.0-7.7); Basophil# 0.06 X10^3/uL; Basophil% 0.5 % (0-1); Eosinophil# 0.42 X10^3/uL; Eosinophils% 3.3 % (0-5); Hematocrit 31.2 % (37-47); Hemoglobin 9.6 g/dL (12.0-15.0); Lymphocyte # 1.49 X10^3/ul (0.83-4.51); Lymphocyte % 11.8 % (19-41); Mean Corp Hgb Conc 30.8 g/dL (32-36); Mean Corpuscular Volume 97.5 fL (81-99); Mean Platelet Vol. 8.4 fl (6.2-12.0); Monocyte# 1.12 X10^3/uL; Monocyte% 8.9 % (0-10); NRBC Flagged by Analyzer 0 % (0-5); Neutrophil # 9.47 X10^3/uL (2.7-7.7); Neutrophil % 74.8 % (47-70); Platelet Count 555 K/mm3 (150-450); White Blood Count 12.7 K/mm3 (4.4-11.0)
[2022-11-07] MEDS: oxyCODONE 5 MG Tablet 10 MG PO (08:36)
[2022-11-07] MEDS: DiphenhydrAMINE 25 MG Capsule PO (08:39)
[2022-11-07] MEDS: Ascorbic Acid 500 MG Tablet PO (09:33)
[2022-11-07] MEDS: Iron Polysaccharide Complex 150 MG CAPSULE PO (09:33)
[2022-11-07] MEDS: metFORMIN HCl 500 MG Tablet PO (09:33)
[2022-11-07] MEDS: Gabapentin 100 MG Capsule PO ×3 (09:34→17:42)
[2022-11-07] MEDS: Aspirin 81 MG TAB.CHEW PO ×2 (09:34→17:41)
[2022-11-07] MEDS: Hydroxychloroquine 200 MG Tablet PO (09:35)
[2022-11-07 10:16] VITALS: BMI 33.9
[2022-11-07 13:43] VITALS: BP 95/42; PULSE 83; RESP 18; TEMP 36.3; O2SAT 97
[2022-11-07] MEDS: Atorvastatin Calcium 20 MG Tablet PO (21:34)
[2022-11-07] MEDS: Nortriptyline 25 MG Capsule 50 MG PO (21:34)
[2022-11-08] MEDS: Pantoprazole Sodium 20 MG Tablet PO ×2 (06:17→17:29)
[2022-11-08] MEDS: Fluticasone 0.05% 1 SPRAY NASAL.SRY NASAL (06:17)
[2022-11-08] MEDS: Menthol/Lanolin/Calamine/Znox 113 GM Tube 1 APPLIC TOPICAL ×2 (06:19→17:30)
[2022-11-08 06:45] LABS: Bedside Glucose 95 mg/dL (74-106)
[2022-11-08] MEDS: Iron Polysaccharide Complex 150 MG CAPSULE PO (08:06)
[2022-11-08] MEDS: Hydroxychloroquine 200 MG Tablet PO (08:06)
[2022-11-08] MEDS: DiphenhydrAMINE 25 MG Capsule PO (08:06)
[2022-11-08] MEDS: metFORMIN HCl 500 MG Tablet PO (08:06)
[2022-11-08] MEDS: oxyCODONE 5 MG Tablet 10 MG PO (08:06)
[2022-11-08] MEDS: Aspirin 81 MG TAB.CHEW PO ×2 (08:06→17:29)
[2022-11-08] MEDS: Ascorbic Acid 500 MG Tablet PO (08:07)
[2022-11-08] MEDS: Gabapentin 100 MG Capsule PO ×3 (08:07→17:28)
--- NOTE | 2022-11-08 08:30 | MDS.RN ---
Information for the mds was obtained from review of the clinical record, interview of resident, staff, and direct observation of resident's care.
[2022-11-08 16:00] VITALS: BP 150/63; PULSE 87; RESP 16; TEMP 36; O2SAT 98
[2022-11-08 20:40] VITALS: PULSE 86; O2SAT 94
[2022-11-08] MEDS: Nortriptyline 25 MG Capsule 50 MG PO (20:48)
[2022-11-08] MEDS: Atorvastatin Calcium 20 MG Tablet PO (20:48)
[2022-11-09] MEDS: Fluticasone 0.05% 1 SPRAY NASAL.SRY NASAL (05:45)
[2022-11-09] MEDS: Senna/Docusate Sodium 1 Tablet 2 TABLET PO ×2 (05:45→17:51)
[2022-11-09] MEDS: Pantoprazole Sodium 20 MG Tablet PO ×2 (05:45→17:52)
[2022-11-09] MEDS: Menthol/Lanolin/Calamine/Znox 113 GM Tube 1 APPLIC TOPICAL ×2 (05:46→20:57)
[2022-11-09] MEDS: traMADol 50 MG Tablet PO ×3 (05:48→17:53)
[2022-11-09] MEDS: DiphenhydrAMINE 25 MG Capsule PO ×3 (05:48→17:53)
[2022-11-09 06:40] LABS: Bedside Glucose 104 mg/dL (74-106)
[2022-11-09] MEDS: metFORMIN HCl 500 MG Tablet PO (07:46)
[2022-11-09] MEDS: Gabapentin 100 MG Capsule PO ×3 (07:46→17:51)
[2022-11-09] MEDS: Hydroxychloroquine 200 MG Tablet PO (07:47)
[2022-11-09] MEDS: Ascorbic Acid 500 MG Tablet PO (07:47)
[2022-11-09] MEDS: Iron Polysaccharide Complex 150 MG CAPSULE PO (07:47)
[2022-11-09] MEDS: Aspirin 81 MG TAB.CHEW PO ×2 (07:47→17:52)
[2022-11-09 10:00] VITALS: PULSE 74; RESP 16; O2SAT 90
[2022-11-09 14:51] VITALS: BP 133/50; PULSE 86; RESP 18; TEMP 36.2; O2SAT 97
[2022-11-09] MEDS: Nortriptyline 25 MG Capsule 50 MG PO (20:56)
[2022-11-09] MEDS: Atorvastatin Calcium 20 MG Tablet PO (20:56)
[2022-11-10] MEDS: Pantoprazole Sodium 20 MG Tablet PO ×2 (05:35→17:14)
[2022-11-10] MEDS: Senna/Docusate Sodium 1 Tablet 2 TABLET PO (05:35)
[2022-11-10] MEDS: Fluticasone 0.05% 1 SPRAY NASAL.SRY NASAL (05:35)
[2022-11-10] MEDS: Magnesium Hydroxide 30 ML UDC PO (05:35)
[2022-11-10] MEDS: Menthol/Lanolin/Calamine/Znox 113 GM Tube 1 APPLIC TOPICAL ×2 (05:36→17:15)
[2022-11-10 06:26] LABS: Bedside Glucose 90 mg/dL (74-106)
[2022-11-10] MEDS: Iron Polysaccharide Complex 150 MG CAPSULE PO (07:50)
[2022-11-10] MEDS: Aspirin 81 MG TAB.CHEW PO ×2 (07:50→17:19)
[2022-11-10] MEDS: Hydroxychloroquine 200 MG Tablet PO (07:50)
[2022-11-10] MEDS: metFORMIN HCl 500 MG Tablet PO (07:50)
[2022-11-10] MEDS: Gabapentin 100 MG Capsule PO ×3 (07:50→17:15)
[2022-11-10] MEDS: Ascorbic Acid 500 MG Tablet PO (07:50)
--- NOTE | 2022-11-10 14:34 | CASEMGMT ---
Social Work SW spoke with pt to update on insurance NRD 11/13 and anticipating LCD 11/15. Inquired about DC plans as pt still needs assist with ADLs. Pt stated son is currently not working and plans to stay with pt 15/01 to assist until pt returns to [facility]. SW confirmed son can assist with toileting, bathing and dressing. Pt agreed. SW inquired about DC needs. Pt requesting BSC and HHC. SW to coordinate at DC. Will continue to follow. Sue Ybarra, ROAD BOSS SENIOR FINANCIAL ANALYST
[2022-11-10 14:36] VITALS: BP 95/40; PULSE 82; RESP 16; TEMP 36.2; O2SAT 94
[2022-11-10] MEDS: Acetaminophen 500 MG Tablet 1000 MG PO (17:15)
[2022-11-10] MEDS: Nortriptyline 25 MG Capsule 50 MG PO (20:37)
[2022-11-10] MEDS: Atorvastatin Calcium 20 MG Tablet PO (20:37)
[2022-11-10 21:00] VITALS: O2SAT 95
[2022-11-11] MEDS: Fluticasone 0.05% 1 SPRAY NASAL.SRY NASAL (05:21)
[2022-11-11] MEDS: Pantoprazole Sodium 20 MG Tablet PO ×2 (05:21→17:04)
[2022-11-11] MEDS: Menthol/Lanolin/Calamine/Znox 113 GM Tube 1 APPLIC TOPICAL ×2 (05:22→17:05)
[2022-11-11 06:17] LABS: Absolute Neutrophil Count 6.5 X10^3/uL (2.0-7.7); Basophil# 0.05 X10^3/uL; Basophil% 0.5 % (0-1); Eosinophil# 0.49 X10^3/uL; Eosinophils% 5.2 % (0-5); Hematocrit 26.2 % (37-47); Hemoglobin 8.1 g/dL (12.0-15.0); Lymphocyte % 13.7 % (19-41); Mean Corp Hgb Conc 30.9 g/dL (32-36); Mean Corpuscular Hgb 30.1 pg (27.0-32.0); Mean Corpuscular Volume 97.4 fL (81-99); Mean Platelet Vol. 8.4 fl (6.2-12.0); Monocyte# 1.07 X10^3/uL; Monocyte% 11.3 % (0-10); NRBC Flagged by Analyzer 0 % (0-5); Neutrophil # 6.53 X10^3/uL (2.7-7.7); Neutrophil % 68.8 % (47-70); Platelet Count 345 K/mm3 (150-450); RBC Distribution Width CV 12.1 % (11.6-14.6); RBC Distribution Width SD 43.1 fl (35.1-43.9); Red Blood Count 2.69 M/mm3 (4.2-5.4); White Blood Count 9.5 K/mm3 (4.4-11.0)
[2022-11-11 06:40] LABS: Bedside Glucose 87 mg/dL (74-106)
[2022-11-11 06:49] LABS: Anion Gap 5 (5-15); BUN 37 mg/dL (7-18); BUN/Creat Ratio 27.4 RATIO (10-20); Calcium,Total 8.8 mg/dL (8.5-10.1); Chloride 100 mmol/L (98-107); Creatinine, Serum 1.35 mg/dL (0.55-1.02); EST Glomerular Filtration Rate 41 mL/min (>60); Est Glom Filt Rate - Afr Amer 49 mL/min (>60); Estimated Creatinine Clearance 25.86 ml/min; Glucose 95 mg/dL (74-106); Potassium 4.9 mmol/L (3.5-5.1); Sodium Level 134 mmol/L (136-145)
[2022-11-11] MEDS: Gabapentin 100 MG Capsule PO ×3 (07:54→17:04)
[2022-11-11] MEDS: Aspirin 81 MG TAB.CHEW PO ×2 (07:55→17:04)
[2022-11-11] MEDS: Iron Polysaccharide Complex 150 MG CAPSULE PO (07:55)
[2022-11-11] MEDS: metFORMIN HCl 500 MG Tablet PO (07:55)
[2022-11-11] MEDS: Hydroxychloroquine 200 MG Tablet PO (07:56)
[2022-11-11] MEDS: Ascorbic Acid 500 MG Tablet PO (07:56)
[2022-11-11] MEDS: Acetaminophen 500 MG Tablet 1000 MG PO (10:07)
[2022-11-11] MEDS: DiphenhydrAMINE 25 MG Capsule PO (10:08)
[2022-11-11] MEDS: traMADol 50 MG Tablet PO (10:08)
[2022-11-11 16:00] VITALS: BP 103/50; PULSE 74; RESP 18; TEMP 36.4; O2SAT 95
[2022-11-11] MEDS: Senna/Docusate Sodium 1 Tablet 2 TABLET PO (17:04)
[2022-11-11] MEDS: Nortriptyline 25 MG Capsule 50 MG PO (21:14)
[2022-11-11] MEDS: Atorvastatin Calcium 20 MG Tablet PO (21:14)
[2022-11-12 03:33] LABS: Absolute Lymphocyte Count 1.17 X10^3/uL (0.83-4.51); Absolute Neutrophil Count 6.7 X10^3/uL (2.0-7.7); Basophil# 0.07 X10^3/uL; Basophil% 0.7 % (0-1); Eosinophil# 0.61 X10^3/uL; Eosinophils% 6.4 % (0-5); Hematocrit 25.2 % (37-47); Lymphocyte # 1.17 X10^3/ul (0.83-4.51); Lymphocyte % 12.3 % (19-41); Mean Corp Hgb Conc 31.7 g/dL (32-36); Mean Corpuscular Hgb 30.7 pg (27.0-32.0); Mean Corpuscular Volume 96.6 fL (81-99); Mean Platelet Vol. 8.3 fl (6.2-12.0); Monocyte% 9.5 % (0-10); NRBC Flagged by Analyzer 0 % (0-5); Neutrophil # 6.72 X10^3/uL (2.7-7.7); Neutrophil % 70.9 % (47-70); Platelet Count 337 K/mm3 (150-450); RBC Distribution Width CV 11.9 % (11.6-14.6); RBC Distribution Width SD 42.3 fl (35.1-43.9); Red Blood Count 2.61 M/mm3 (4.2-5.4); White Blood Count 9.5 K/mm3 (4.4-11.0)
[2022-11-12 03:46] LABS: Anion Gap 6 (5-15); BUN 34 mg/dL (7-18); BUN/Creat Ratio 28.3 RATIO (10-20); Calcium,Total 8.5 mg/dL (8.5-10.1); Chloride 102 mmol/L (98-107); EST Glomerular Filtration Rate 47 mL/min (>60); Est Glom Filt Rate - Afr Amer 56 mL/min (>60); Glucose 104 mg/dL (74-106); Potassium 4.7 mmol/L (3.5-5.1); Sodium Level 137 mmol/L (136-145)
[2022-11-12] MEDS: Fluticasone 0.05% 1 SPRAY NASAL.SRY NASAL (06:16)
[2022-11-12] MEDS: Menthol/Lanolin/Calamine/Znox 113 GM Tube 1 APPLIC TOPICAL ×2 (06:16→17:00)
[2022-11-12] MEDS: Pantoprazole Sodium 20 MG Tablet PO ×2 (06:17→17:00)
[2022-11-12] MEDS: Senna/Docusate Sodium 1 Tablet 2 TABLET PO ×2 (06:17→17:00)
[2022-11-12 06:51] LABS: Bedside Glucose 82 mg/dL (74-106)
[2022-11-12] MEDS: Gabapentin 100 MG Capsule PO ×3 (07:55→17:00)
[2022-11-12] MEDS: Iron Polysaccharide Complex 150 MG CAPSULE PO (07:55)
[2022-11-12] MEDS: Aspirin 81 MG TAB.CHEW PO ×2 (07:55→17:00)
[2022-11-12] MEDS: metFORMIN HCl 500 MG Tablet PO (07:55)
[2022-11-12] MEDS: Hydroxychloroquine 200 MG Tablet PO (07:56)
[2022-11-12] MEDS: Ascorbic Acid 500 MG Tablet PO (07:56)
[2022-11-12] MEDS: traMADol 50 MG Tablet PO (12:48)
[2022-11-12] MEDS: DiphenhydrAMINE 25 MG Capsule PO (12:51)
[2022-11-12 15:37] VITALS: BP 126/57; PULSE 70; RESP 16; TEMP 36.2; O2SAT 93
[2022-11-12 19:32] VITALS: PULSE 72; RESP 16; O2SAT 96
[2022-11-12] MEDS: Atorvastatin Calcium 20 MG Tablet PO (20:50)
[2022-11-12] MEDS: Nortriptyline 25 MG Capsule 50 MG PO (20:50)
[2022-11-13] MEDS: Menthol/Lanolin/Calamine/Znox 113 GM Tube 1 APPLIC TOPICAL ×2 (05:14→17:36)
[2022-11-13] MEDS: Senna/Docusate Sodium 1 Tablet 2 TABLET PO (05:15)
[2022-11-13] MEDS: Fluticasone 0.05% 1 SPRAY NASAL.SRY NASAL (05:15)
[2022-11-13] MEDS: Pantoprazole Sodium 20 MG Tablet PO ×2 (05:15→17:36)
[2022-11-13 05:42] LABS: Hematocrit 26.6 % (37-47); Hemoglobin 8.2 g/dL (12.0-15.0)
[2022-11-13] MEDS: Gabapentin 100 MG Capsule PO ×3 (07:52→17:34)
[2022-11-13] MEDS: Aspirin 81 MG TAB.CHEW PO ×2 (07:52→17:36)
[2022-11-13] MEDS: Iron Polysaccharide Complex 150 MG CAPSULE PO (07:52)
[2022-11-13] MEDS: metFORMIN HCl 500 MG Tablet PO (07:52)
[2022-11-13] MEDS: Ascorbic Acid 500 MG Tablet PO (07:53)
[2022-11-13] MEDS: Hydroxychloroquine 200 MG Tablet PO (07:53)
[2022-11-13 08:11] LABS: Bedside Glucose 93 mg/dL (74-106)
[2022-11-13 10:00] VITALS: PULSE 72; RESP 16; O2SAT 95
--- NOTE | 2022-11-13 14:19 | CASEMGMT ---
Social Work Insurance issued LCD 11/15, DC 11/16. SW spoke with pt and explained appeal rights. Pt agreeable with DC home, [facility] and a [facility]. Son to transport. JOSSIE phoned referral to [facility] for PT/OT; [place] [facility] [place] [employer]. Plan: DC home with son assistance 11/16, [facility] PT/OT, BSC Sue Ybarra, ROSY CROWEW
[2022-11-13 16:00] VITALS: BP 122/40; PULSE 78; RESP 16; TEMP 36.6; O2SAT 96
--- NOTE | 2022-11-13 19:36 | DS.PCM_ITS ---
Providers Date of Admission: 10/27/22 Primary Care Physician: Dr. Nadeem Parikh MD Reason For Visit: TOTAL LEFT HIP Diagnosis Discharge Diagnosis (1) Debility: Status: Acute Code(s): R53.81 - Other malaise (2) Osteoarthritis of left hip: Status: Acute Code(s): M16.12 - Unilateral primary osteoarthritis, left hip (3) History of total left hip arthroplasty: Status: Acute Code(s): Z96.642 - Presence of left artificial hip joint (4) Diabetes mellitus: Status: Acute Code(s): E11.9 - Type 2 diabetes mellitus without complications (5) Fibromyalgia: Status: Acute Code(s): M79.7 - Fibromyalgia (6) GERD (gastroesophageal reflux disease): Status: Acute Code(s): K21.9 - Gastro-esophageal reflux disease without esophagitis (7) Hypertension: Status: Chronic Code(s): I10 - Essential (primary) hypertension (8) Hyperlipidemia: Status: Acute Code(s): E78.5 - Hyperlipidemia, unspecified (9) Chronic kidney disease: Status: Chronic Code(s): N18.9 - Chronic kidney disease, unspecified (10) Osteoarthritis: Status: Acute Code(s): M19.90 - Unspecified osteoarthritis, unspecified site (11) Rheumatoid arthritis: Status: Acute Code(s): M06.9 - Rheumatoid arthritis, unspecified (12) Vertigo: Status: Acute Code(s): R42 - Dizziness and giddiness Plan 77 year old female with below past medical history hospitalized for left total hip arthroplasty 10/23/[address] Bright, admitted to TCU with debility, here for rehabilitation, strengthening, prior to discharge home alone. * Debility - PT/OT. * Pain - Tylenol 1000mg q6h prn pain (1-3), Tramadol 50mg q6h prn pain (4-5), Oxycodone 10mg q4h prn pain (6-10). * Bowel - senna/colace 2 tablets bid, Dulcolax 10mg daily prn, MOM 30ml po x 1 prn. * Adult immunization - Administer pneumonia vaccine, covid19 vaccine, flu vaccine as appropriate. * DVT prophylaxis - Aspirin 81mg bid thru 11/23/2022. * Shortness of breath - Albuterol mdi 2 puffs q6h prn. * Hyperlipidemia - Atorvastatin 20mg qhs. * Hives - Benadryl 25mg q6h prn. * Allergic rhinitis - Flonase 1 spray nasal daily. * Fibromyalgia - Gabapentin 100mg tidcm, Nortriptyline 50mg qhs. * Hypertension - Lisinopril 40mg daily, HCTZ 25mg daily. * Rheumatoid arthritis - Plaquenil 200mg daily. * Diabetes Mellitus II - Metformin 1000mg daily. * GERD - Pantoprazole 40mg bid. Medications at Discharge Home Medications albuterol sulfate 90 mcg/actuation aerosol inhaler (Ventolin HFA) 2 puff inhalation Q6H PRN PRN Wheezing 06/23/15 gabapentin 100 mg capsule 100 mg PO TIDCM Check with primary doctor 06/23/15 hydroxychloroquine 200 mg tablet 200 mg PO DAILYCM Check with primary doctor 06/23/15 nortriptyline 25 mg capsule 50 mg PO QHS Check with primary doctor 06/23/15 omeprazole 20 mg capsule,delayed release 20 mg PO BID Check with primary doctor 06/23/15 simvastatin 10 mg tablet 40 mg PO QHS Check with primary doctor 06/23/15 aspirin 81 mg tablet 81 mg PO BID Check with primary doctor 10/27/22 diphenhydramine HCl 25 mg capsule (Benadryl) 25 mg PO Q6H PRN PRN ITCHING/HIVES 10/27/22 acetaminophen 500 mg tablet 1,000 mg PO Q6H PRN PRN Pain Score 1-3 #0 tabs 11/13/22 ascorbic acid (vitamin C) 500 mg tablet 500 mg PO BREAKFAST 30 days #30 tabs 11/13/22 fluticasone propionate 50 mcg/actuation nasal spray,suspension 1 spray NASAL DAILY #0 grams 11/13/22 metformin 500 mg tablet 500 mg PO BREAKFAST 30 days #30 tabs 11/13/22 polysaccharide iron complex 150 mg iron capsule (Ferrex) 150 mg PO BREAKFAST 30 days #30 caps 11/13/22 tramadol 50 mg tablet 50 mg PO Q6H PRN PRN Pain Score 4-5 7 days #28 tabs 11/13/22 Hospital Course Operations total hip replacement (Left.) Procedures None Summary of Care Provided Minutes Spent on Discharge: 35 Hospital Course: 77 year old female with below past medical history hospitalized for left total hip arthroplasty 10/23/[address] Bright, admitted to TCU with debility, here for rehabilitation, strengthening, prior to discharge home alone. Discharge home with son assistance 11/16/2022, [facility] PT/OT, Beside commode. Physical Exam Const alert General Appearance: cooperative HEENT normocephalic Eyes PERRL and EOMs intact bilaterally Neck supple, no JVD and no carotid bruits Resp normal respiratory effort, normal air movement and clear to auscultation bilaterally Cardio regular rate and regular rhythm GI normal to inspection, nondistended, normoactive bowel sounds, non-tender and non-distended Extremity normal capillary refill General Extremity: Negative for edema Skin no rashes or lesions noted General Skin Exam: no breakdown Psych affect normal Appearance: appropriate Weight / BMI Weight Weight: 78.834 kg Body Mass Index (BMI) 33.9 ABG / Lab / Microbiology Data Result Diagrams: 11/13/22 05:21 11/12/22 03:00 Laboratory: Laboratory Results - last 24 hr 11/13/22 05:21: Hgb 8.2 L, Hct 26.6 L 11/13/22 07:51: POC Glucose 93 Microbiology: Microbiology 11/04/22 13:35 Urine Catheter - Catheter Urine Culture - Final Klebsiella aerogenes 11/05/22 05:48 Mucosa - Nasopharyngeal Respiratory Panel (PCR) - Final 11/04/22 12:55 Nasal Secretion SARS-CoV-2 Antigen (Rapid) - Final 10/31/22 06:40 Nasal Secretion SARS-CoV-2 Antigen (Rapid) - Final 10/29/22 06:52 Nasal Secretion SARS-CoV-2 Antigen (Rapid) - Final 10/27/22 20:02 Nasal Secretion SARS-CoV-2 Antigen (Rapid) - Final D/C Instructions Discharge Diet: No restrictions Discharge Activity: Return to Normal Activity, May Shower and Use Walker Weight Bearing Status: Weight bearing as tolerated Call your doctor if you observe: Fever of 101 or Higher, Inability to urinate, Inability to have a bowel movement, Shortness of breath, Dizziness, Fainting spells, Swelling in the ankles, Chest pain and Uncontrolled pain Additional Instructions: Discharge home with son assistance 11/16/2022, [facility] PT/OT, Beside commode. Please Follow Up With: DR. BRIGHT When: As scheduled. Meaningful Use Info Meaningful Use Diagnoses (Choose all that apply): None applicable Discharge Plan Admission Admit Date/Time: 10/27/22 18:05 Primary Reason for Your Visit: Debility. Attending Provider: Jorge Lr Chi Primary Care Provider: Nadeem Parikh Instructions Additional Instructions / Restrictions: Discharge home with son assistance 11/16/2022, [facility] PT/OT, Beside commode. Discharge Orders/Prescriptions Prescriptions: New metformin 500 mg Tablet 500 mg PO BREAKFAST 30 Days Qty: 30 0RF acetaminophen 500 mg Tablet 1,000 mg PO Q6H PRN PRN (Reason: Pain Score 1-3) Qty: 0 0RF ascorbic acid (vitamin C) 500 mg Tablet 500 mg PO BREAKFAST 30 Days Qty: 30 0RF polysaccharide iron complex [Ferrex 150] 150 mg iron Capsule 150 mg PO BREAKFAST 30 Days Qty: 30 0RF fluticasone propionate 50 mcg/actuation [place],Suspension 1 spray NASAL DAILY Qty: 0 0RF tramadol 50 mg Tablet 50 mg PO Q6H PRN PRN (Reason: Pain Score 4-5) 7 Days Qty: 28 0RF Continued simvastatin 10 MG tablet 40 mg PO QHS Label Comments: CHOLESTEROL nortriptyline 25 MG capsule 50 mg PO QHS Label Comments: SLEEP omeprazole 20 MG capsule 20 mg PO BID Label Comments: ACID REFLUX gabapentin 100 MG capsule 100 mg PO TIDCM Label Comments: FIBROMYALGIA hydroxychloroquine 200 MG tablet 200 mg PO DAILYCM Label Comments: RA albuterol sulfate [Ventolin HFA] 1 INHALER inhaler 2 puff inhalation Q6H PRN PRN (Reason: Wheezing) Rx Instructions: 2 PUFFS Q6HRS PRN WHEEZING diphenhydramine HCl [Benadryl] 25 mg Capsule 25 mg PO Q6H PRN PRN (Reason: ITCHING/HIVES) aspirin 81 mg Tablet 81 mg PO BID Discontinued metformin 1,000 MG tablet 1,000 mg PO DAILY Label Comments: DIABETES hydrochlorothiazide 25 MG tablet 25 mg PO DAILY Label Comments: BP lisinopril 2.5 MG tablet 40 mg PO DAILY Label Comments: BP oxycodone 5 mg Tablet 5 mg PO Q6H PRN (Reason: Pain) Referrals / Follow Up: Nadeem Parikh MD [Primary Care Provider] - Disposition Disposition (needs filled in before D/C Order can be placed): Home Health Service
[2022-11-13] MEDS: Nortriptyline 25 MG Capsule 50 MG PO (21:22)
[2022-11-13] MEDS: Atorvastatin Calcium 20 MG Tablet PO (21:22)
[2022-11-14] MEDS: traMADol 50 MG Tablet PO ×2 (00:32→21:17)
[2022-11-14] MEDS: DiphenhydrAMINE 25 MG Capsule PO ×2 (00:33→21:17)
[2022-11-14] MEDS: Acetaminophen 500 MG Tablet 1000 MG PO ×2 (00:33→21:18)
[2022-11-14] MEDS: Pantoprazole Sodium 20 MG Tablet PO ×2 (06:34→18:10)
[2022-11-14] MEDS: Fluticasone 0.05% 1 SPRAY NASAL.SRY NASAL (06:34)
[2022-11-14] MEDS: Menthol/Lanolin/Calamine/Znox 113 GM Tube 1 APPLIC TOPICAL ×2 (06:36→18:15)
[2022-11-14 06:41] LABS: Bedside Glucose 82 mg/dL (74-106)
[2022-11-14] MEDS: Hydroxychloroquine 200 MG Tablet PO (07:38)
[2022-11-14] MEDS: Ascorbic Acid 500 MG Tablet PO (07:38)
[2022-11-14] MEDS: metFORMIN HCl 500 MG Tablet PO (07:38)
[2022-11-14] MEDS: Gabapentin 100 MG Capsule PO ×3 (07:38→18:11)
[2022-11-14] MEDS: Iron Polysaccharide Complex 150 MG CAPSULE PO (07:38)
[2022-11-14] MEDS: Aspirin 81 MG TAB.CHEW PO ×2 (07:41→18:11)
[2022-11-14 14:30] VITALS: BMI 34.0
[2022-11-14 14:32] VITALS: BP 108/36; PULSE 68; RESP 16; TEMP 36.5; O2SAT 99
[2022-11-14 18:09] VITALS: BP 133/50; PULSE 76
[2022-11-14] MEDS: Senna/Docusate Sodium 1 Tablet 2 TABLET PO (18:10)
[2022-11-14 21:00] VITALS: O2SAT 96
[2022-11-14] MEDS: Atorvastatin Calcium 20 MG Tablet PO (21:10)
[2022-11-14] MEDS: Nortriptyline 25 MG Capsule 50 MG PO (21:10)
[2022-11-15] MEDS: Pantoprazole Sodium 20 MG Tablet PO ×2 (05:32→18:23)
[2022-11-15] MEDS: Fluticasone 0.05% 1 SPRAY NASAL.SRY NASAL (05:32)
[2022-11-15] MEDS: Menthol/Lanolin/Calamine/Znox 113 GM Tube 1 APPLIC TOPICAL ×2 (05:34→08:27)
[2022-11-15 06:09] LABS: Hematocrit 26.1 % (37-47); Hemoglobin 7.9 g/dL (12.0-15.0)
[2022-11-15 06:37] LABS: Bedside Glucose 73 mg/dL (74-106)
[2022-11-15] MEDS: Gabapentin 100 MG Capsule PO ×3 (08:24→18:23)
[2022-11-15] MEDS: Iron Polysaccharide Complex 150 MG CAPSULE PO (08:25)
[2022-11-15] MEDS: Aspirin 81 MG TAB.CHEW PO ×2 (08:25→18:23)
[2022-11-15] MEDS: Ascorbic Acid 500 MG Tablet PO (08:25)
[2022-11-15] MEDS: Hydroxychloroquine 200 MG Tablet PO (08:25)
[2022-11-15] MEDS: metFORMIN HCl 500 MG Tablet PO (08:25)
[2022-11-15] MEDS: Acetaminophen 500 MG Tablet 1000 MG PO (08:25)
--- NOTE | 2022-11-15 08:53 | NURSING ---
Addendum entered by Jacqueline Giang 11/15/22 09:24: This RN spoke with son, asked about re-scheduling appointment. Per him, can re-schedule to whatever date and time works. Told son that when appt scheduled date/time would be on DC paperwork and patient would be updated. Original Note: Pt refusing to go to scheduled f/u appointment today. Pt stated that I am going home tomorrow, there is no point. I want it rescheduled. Son called and updated, he stated that if mom doesn't want to go, she doesn't have to.
[2022-11-15 09:48] VITALS: PULSE 77; RESP 16; O2SAT 97
[2022-11-15 15:43] VITALS: BP 114/42; PULSE 68; RESP 16; TEMP 36.7; O2SAT 98
[2022-11-15] MEDS: Senna/Docusate Sodium 1 Tablet 2 TABLET PO (18:23)
[2022-11-15] MEDS: Atorvastatin Calcium 20 MG Tablet PO (20:23)
[2022-11-15] MEDS: Nortriptyline 25 MG Capsule 50 MG PO (20:24)
[2022-11-16 06:25] LABS: Bedside Glucose 73 mg/dL (74-106)
[2022-11-16] MEDS: Pantoprazole Sodium 20 MG Tablet PO (06:29)
[2022-11-16] MEDS: Fluticasone 0.05% 1 SPRAY NASAL.SRY NASAL (06:30)
[2022-11-16] MEDS: Menthol/Lanolin/Calamine/Znox 113 GM Tube 1 APPLIC TOPICAL (06:31)
[2022-11-16] MEDS: Aspirin 81 MG TAB.CHEW PO (07:59)
[2022-11-16] MEDS: Gabapentin 100 MG Capsule PO ×2 (07:59→11:59)
[2022-11-16] MEDS: Iron Polysaccharide Complex 150 MG CAPSULE PO (07:59)
[2022-11-16] MEDS: metFORMIN HCl 500 MG Tablet PO (07:59)
[2022-11-16] MEDS: Ascorbic Acid 500 MG Tablet PO (07:59)
[2022-11-16] MEDS: Hydroxychloroquine 200 MG Tablet PO (08:00)
--- NOTE | 2022-11-16 09:54 | CASEMGMT ---
Social Work BIMS () and PHQ-9 (10/19) completed for MDS assessment. Sue Ybarra MSW GAME FARM SUPERVISOR
[2022-11-16 10:00] VITALS: PULSE 72; RESP 18; O2SAT 94
--- NOTE | 2022-11-16 10:43 | NURSING ---
mri technologist reports doppler negative.
== END 2022-11-16 13:40 | disposition home health service (06) | DRG 561 ==
PROVIDERS: Admitting Provider Family Medicine Geriatric Medicine; PCP Internal Medicine; Visit Provider Family Medicine Geriatric Medicine
DX: Z47.1 Aftercare following joint replacement surgery (principal); E11.22 Type 2 diabetes mellitus with diabetic chronic kidney disease; M06.9 Rheumatoid arthritis, unspecified; E78.5 Hyperlipidemia, unspecified; N18.9 Chronic kidney disease, unspecified; I12.9 Hypertensive chronic kidney disease with stage 1 through stage 4 chronic kidney disease, or unspecified chronic kidney disease; K21.9 Gastro-esophageal reflux disease without esophagitis; M16.12 Unilateral primary osteoarthritis, left hip; M79.7 Fibromyalgia; J30.9 Allergic rhinitis, unspecified; F17.210 Nicotine dependence, cigarettes, uncomplicated; Z79.84 Long term (current) use of oral hypoglycemic drugs; Z79.82 Long term (current) use of aspirin; Z96.642 Presence of left artificial hip joint; Z79.899 Other long term (current) drug therapy
CPT/HCPCS: 36415; 71046; 74018; 80048; 81001; 82962; 83930; 83935; 84300; 85014; 85018; 85025; 87077; 87086; 87088; 87186; 87633; 87811; 92610; 97110; 97112; 97116; 97162; 97165; 97530; 97535; 97802; 99406; J7030

== ENCOUNTER → 2022-11-02 | Outpatient (CLI) | payer MEDICARE, SELFPAY ==
--- NOTE | 2022-11-02 10:03 | VDLE_ITS ---
Reason For Study: LEG SWELLING RIGHT LEFT GSV is normal. GSV is normal. CFV is compressible, spontaneous, phasic, CFV is compressible, spontaneous, phasic, competent and demonstrates normal competent, and demonstrates normal augmentation. augmentation. FV is compressible, spontaneous, phasic, FV is compressible, spontaneous, phasic, competent and demonstrates normal competent and demonstrates normal augmentation. augmentation. POP V is compressible, spontaneous, phasic, POP V is compressible, spontaneous, phasic, competent and demonstrates normal competent and demonstrates normal augmentation. augmentation. T/P Trunk is compressible. T/P Trunk is compressible. PTV is compressible. PTV is compressible. RT PerV is compressible. LT PerV is compressible. Procedure This is a venous duplex using B-mode, color flow and spectral Doppler. Exam performed portable in patient room. The exam was diagnostic. A preliminary report was called and/or faxed to TCU reject opener. VL/Venous Duplex US, Unilateral Interpretation Summary No evidence for acute deep venous thrombosis bilateral lower extremities with p atent and compressible bilateral great saphenous veins. Ordering Physician: Jorge Lr Chi Referring Physician: Jorge Lr Chi Performed By: Titus Brock RVT
== END | disposition home or self-care (01) ==
PROVIDERS: PCP Internal Medicine; Referring Provider Family Medicine Geriatric Medicine; Visit Provider Family Medicine Geriatric Medicine
DX: R22.42 Localized swelling, mass and lump, left lower limb (principal)
CPT/HCPCS: 93971

== ENCOUNTER → 2022-11-16 | Outpatient (CLI) | payer MEDICARE, SELFPAY ==
--- NOTE | 2022-11-16 09:30 | VDLE_ITS ---
Reason For Study: Left Leg Swelling RIGHT LEFT CFV is compressible, spontaneous, competent CFV is compressible, spontaneous, competent, and demonstrates pulsatile venous flow. and demonstrates pulsatile venous flow. Procedure FV is compressible, spontaneous, competent This is a venous duplex using B-mode, color and demonstrates pulsatile venous flow. flow and spectral Doppler. POP V is compressible, spontaneous, competent Exam performed portable in patient room. and demonstrates pulsatile venous flow. The exam was diagnostic. T/P Trunk is compressible. A preliminary report was called and/or faxed PTV is compressible. to TCU credit manager. LT PerV is compressible. Edema noted throughout left calf. VL/Venous Duplex US, Unilateral Interpretation Summary There is no evidence of left lower extremity deep vein thrombosis. Left great s aphenous vein appears patent and compressible segmentally. Pulsatile venous flow is noted throughout the left common femoral and femoral and popliteal veins consistent with proximal venous hyperte nsion or obstruction. Clinical correlation would be appropriate. Edema is noted in the left calf Patent and compressible right common femoral vein although with pulsatile venou s flow. Ordering Physician: Jorge Lr Chi Referring Physician: Jorge Lr Chi Performed By: Titus Brock RVT
== END | disposition home or self-care (01) ==
LOC: CVS 09:30
PROVIDERS: PCP Internal Medicine; Referring Provider Family Medicine Geriatric Medicine; Visit Provider Family Medicine Geriatric Medicine
DX: M79.89 Other specified soft tissue disorders (principal)
CPT/HCPCS: 93971

== ENCOUNTER 2024-07-09 21:36 | Inpatient (IN) | payer MEDICARE, SELFPAY ==
[2024-07-09 21:37] VITALS: BP 161/74; PULSE 87; RESP 20; TEMP 37.3; O2SAT 95; BMI 37.8
--- NOTE | 2024-07-09 22:08 | ED.VIS.DYS ---
HPI History of Present Illness Chief Complaint: Shortness of Breath Informant: patient and family Onset/Context/Timing Onset: Days (4) Context: gradual Timing: Continuous Quality: Positive for Dyspnea on exertion and Orthopnea Worsened by: Nothing Relieved by: Nothing Associated Symptoms cough, rhinorrhea and white sputum; Negative for post nasal drip, ear pain, fever, sore throat, chills or sweats Chest Pain: Positive for None Narrative Narrative: Patient presents with shortness of breath that has been getting worse over the last 4 days. Patient states his breathing is worse presenting range of motion and with laying flat. Son states that they have been checking her pulse oximeter and noted it to be between 89 and 91% on room air at home. Patient admits to a cough with some thick white sputum. Patient also admits to some rhinorrhea. Patient admits to subjective fevers and chills but did not take her temperature at home. Patient denies any chest pain or palpitations. [facility] Medical History Vertigo Rheumatoid arthritis Osteoarthritis Chronic kidney disease Hyperlipidemia Hypertension GERD (gastroesophageal reflux disease) Fibromyalgia Diabetes mellitus Osteoarthritis of left hip Debility Home Medications ?Medication ?Instructions ?Recorded ?Last Taken ?Type albuterol sulfate 90 mcg/actuation 2 puff inhalation Q6H PRN PRN 06/23/15 Unknown History aerosol inhaler (Ventolin HFA) Wheezing gabapentin 100 mg capsule 100 mg PO TIDCM Check with primary 06/23/15 Unknown History doctor hydroxychloroquine 200 mg tablet 200 mg PO DAILYCM Check with 06/23/15 Unknown History primary doctor nortriptyline 25 mg capsule 50 mg PO QHS Check with primary 06/23/15 Unknown History doctor omeprazole 20 mg capsule,delayed 20 mg PO BID Check with primary 06/23/15 06/28/15 07:30 History release doctor simvastatin 10 mg tablet 40 mg PO QHS Check with primary 06/23/15 Unknown History doctor aspirin 81 mg tablet 81 mg PO BID Check with primary 10/27/22 Unknown History doctor diphenhydramine HCl 25 mg capsule 25 mg PO Q6H PRN PRN ITCHING/HIVES 10/27/22 Unknown History (Benadryl) acetaminophen 500 mg tablet 1,000 mg (2 x 500 mg) PO Q6H PRN 11/13/22 Unknown Rx PRN Pain Score 1-3 #0 tabs ascorbic acid (vitamin C) 500 mg 500 mg PO BREAKFAST 30 days #30 11/13/22 Unknown Rx tablet tabs fluticasone propionate 50 1 spray NASAL DAILY #0 grams 11/13/22 Unknown Rx mcg/actuation nasal spray,suspension metformin 500 mg tablet 500 mg PO BREAKFAST 30 days #30 11/13/22 Unknown Rx tabs polysaccharide iron complex 150 mg 150 mg PO BREAKFAST 30 days #30 11/13/22 Unknown Rx iron capsule (Ferrex) caps tramadol 50 mg tablet 50 mg PO Q6H PRN PRN Pain Score 11/13/22 Unknown Rx 4-5 7 days #28 tabs Allergy/AdvReac Type Severity Reaction Status Date / Time cephalexin monohydrate (From Allergy Hives Verified 06/23/15 09:19 Keflex) codeine Allergy Hives Verified 06/23/15 09:19 ketorolac tromethamine (From Allergy Hives Verified 06/23/15 09:19 Toradol) latex Allergy Rash Verified 06/23/15 09:19 lorazepam Allergy Hives Verified 06/23/15 09:19 meloxicam (From Mobic) Allergy Chest Verified 06/23/15 09:19 tightness meperidine HCl (From Demerol) Allergy Hives Verified 06/23/15 09:19 morphine Allergy Hives Verified 06/23/15 09:19 moxifloxacin HCl (From Allergy Hives Verified 06/23/15 09:19 Avelox) oxycodone HCl (From Percocet) Allergy Hives Verified 06/23/15 09:19 phenobarbital Allergy Hives Verified 06/23/15 09:19 piroxicam (From Feldene) Allergy Hives Verified 06/23/15 09:19 propoxyphene napsylate (From Allergy Hives Verified 06/23/15 09:19 Darvocet-N) triamcinolone acetonide Allergy Rash Verified 06/28/15 09:08 (From Kenalog) celecoxib (From Celebrex) AdvReac Upset Verified 06/23/15 09:19 Stomach moxifloxacin AdvReac Nausea/Vom/ Verified 06/23/15 09:19 Diarrhea naproxen AdvReac Upset Verified 06/23/15 09:19 Stomach tramadol HCl (From Ultram) AdvReac Nausea/Vom/ Verified 06/23/15 09:19 Diarrhea Family History Father Heart disease COPD (chronic obstructive pulmonary disease) Mother Myocardial infarction Surgical History History of tubal ligation History of rotator cuff surgery History of total bilateral knee replacement History of carpal tunnel surgery of right wrist History of cholecystectomy History of section History of total left hip arthroplasty Social History household members: none Smoking Status: Current every day smoker tobacco type: cigarettes alcohol intake: never substance use type: does not use ROS ROS ED Constitutional Constitutional ED: Reports chills and fever(s) Eyes Eyes: Denies blurry vision or change in vision ENT ENT ED: Reports rhinorrhea; Denies sore throat Cardiovascular Cardiovascular: Denies chest pain or palpitations Respiratory/Chest Respiratory/Chest: Reports cough and dyspnea Gastrointestinal Gastrointestinal: Denies nausea or vomiting Genitourinary Genitourinary ED: Denies dysuria or hematuria Musculoskeletal Musculoskeletal: Denies back pain or neck pain Integumentary Denies abscess or rash Neurologic Neurologic: Denies headache(s) or weakness Allergic/Immunologic Allergic/Immunologic ED: Denies mouth swelling or urticaria EXAM Physical Exam Const Vital Signs: 07/09/24 21:37 07/09/24 22:43 07/09/24 23:31 Temperature 99.2 F H 99.6 F H Temperature Source Oral Oral Pulse Rate 87 86 87 Respiratory Rate 20 H 15 21 H Respiratory Effort Respiratory Depth Respiratory Pattern Normal Blood Pressure 161/74 H 168/70 H Blood Pressure Mean 103 102 Pulse Ox 95 94 Oxygen Delivery Method Room Air Room Air Oxygen Flow Rate (L/min) 07/09/24 23:32 07/09/24 23:33 07/10/24 00:00 Temperature 99.6 F H 99.2 F H Temperature Source Oral Oral Pulse Rate 87 85 Respiratory Rate 21 H 18 Respiratory Effort Short of Breath Respiratory Depth Normal Respiratory Pattern Normal Blood Pressure 168/70 H 165/71 H Blood Pressure Mean 102 102 Pulse Ox 95 89 Oxygen Delivery Method Room Air Room Air Room Air Oxygen Flow Rate (L/min) 07/10/24 00:03 07/10/24 00:04 Temperature Temperature Source Pulse Rate Respiratory Rate Respiratory Effort Respiratory Depth Respiratory Pattern Blood Pressure Blood Pressure Mean Pulse Ox 87 95 Oxygen Delivery Method Room Air Nasal Cannula Oxygen Flow Rate (L/min) 2 Positive well nourished and well developed General Appearance ED: well developed and NAD HEENT Reports moist mucous membranes atraumatic Neck supple and no JVD Resp normal respiratory effort Auscultation: rhonchi Cardio regular rate and regular rhythm GI non-tender and non-distended Palpation: soft Extremity General Extremety ED: Negative for edema General Extremity: Negative for edema Neuro oriented x3, CN's II-XII intact bilaterally and no sensory deficits noted Sensorium / Orientation: alert Speech: speech normal Motor Exam: strength 5/5 throughout Psych mental status grossly normal MDM MDM MDM Narrative Medical decision making narrative: Differential diagnosis includes pneumonia, bronchitis, viral illness, cardiac dysrhythmia, cardiac ischemia, electrolyte abnormality, congestive heart failure, and anxiety. EKG will be obtained to assess for cardiac dysrhythmia and cardiac ischemia. Chest x-ray will be obtained to assess for pneumonia and bronchitis. CBC will be obtained to assess for leukocytosis and anemia. Basic metabolic profile will be obtained to assess for electrolyte abnormality and renal function. High-sensitivity troponin will be obtained to assess for cardiac ischemia. COVID-19, influenza, and RSV PCR will be obtained to assess for viral illness. Lab Data Attestation: I reviewed the patient's lab results. Lab results narrative: CBC was reviewed and was essentially within normal limits. Basic metabolic profile was reviewed. Creatinine was slightly elevated at 1.05. Glucose was 167. The remainder is within normal limits. High-sensitivity troponin was repeated and was slightly elevated at 129. COVID-19 PCR was reviewed and was negative. Influenza PCR was reviewed and was negative for influenza A and influenza B. RSV PCR was reviewed and was negative. Labs: Laboratory Results - last 24 hr 07/09/24 21:42 WBC 6.7 RBC 3.79 L Hgb 12.1 Hct 36.9 L MCV 97.4 MCH 31.9 MCHC 32.8 RDW Std Deviation 44.1 H RDW Coeff of Nina 12.3 Plt Count 149 L MPV 9.9 Immature Gran % (Auto) 0.300 Neut % (Auto) 70.7 H Lymph % (Auto) 11.0 L [place] % (Auto) 16.8 H Eos % (Auto) 0.6 Baso % (Auto) 0.6 Absolute Neuts (auto) 4.8 Absolute Lymphs (auto) 0.74 L Nucleated RBC % 0 Sodium 137 Potassium 4.2 Chloride 102 Carbon Dioxide 26.0 Anion Gap 9 BUN 17 Creatinine 1.05 H Estim Creat Clear Calc 44.27 Est GFR (MDRD) Af Amer 65 Est GFR (MDRD) Non-Af 54 L BUN/Creatinine Ratio 16.2 Glucose 167 H Calcium 8.8 Troponin I High Sens 129 H* Radiography Chest X-Ray - ED: 2 View, Read by ED Physician, Read by Radiologist and No Acute Disease Diagnostic Testing: Clinical Impression(s) from Imaging Studies Chest X-Ray 07/09/24 23:05 IMPRESSION: No evidence of active intrathoracic disease. Electronically Signed: Tatyana Gao MD at 23:27 EST Reading Location ID and State: [address] [place] [address] Tel , Service support , PA and lateral chest x-ray was obtained. There are 2 views. On my independent interpretation, lung anderson are clear. There is normal cardiac silhouette. Bony thorax is normal. There is no acute process noted. Radiologist also interpreted the x-ray and agrees. EKG Initial EKG: Attestation: I personally reviewed and interpreted this EKG as follows: Interpretation: Sinus Rhythm (82) and Non-Specific ST Changes Comments: EKG was obtained. On my independent interpretation, it showed a normal sinus rhythm with a rate of 82. NC interval, QRS interval, and QTc intervals were all normal. [place] was normal. There are nonspecific ST-T wave changes. Prior EKG tracings: not available for review Prior: No Prior Management Discussion w/another healthcare provider: Hospitalist Treatment and Re-Evaluation :: Patient was given albuterol aerosol. Patient was given aspirin. Patient was given a dose of Zofran. Patient and family were advised of her findings. Patient was advised of the need for hospitalization. Case was discussed with the hospitalist. He will admit the patient to his service. Patient and family understood and were agreeable with the plan. All questions were answered. Discharge Plan Triage Chief Complaint: Shortness of Breath ED Provider: Schwiger,Jr Dx/Rx/DC Orders Clinical Impression: Acute bacterial bronchitis, Hypoxia, Elevated troponin Prescriptions: No Action simvastatin 10 MG tablet 40 mg PO QHS Patient Comments: CHOLESTEROL nortriptyline 25 MG capsule 50 mg PO QHS Patient Comments: SLEEP omeprazole 20 MG capsule 20 mg PO BID Patient Comments: ACID REFLUX gabapentin 100 MG capsule 100 mg PO TIDCM Patient Comments: FIBROMYALGIA hydroxychloroquine 200 MG tablet 200 mg PO DAILYCM Patient Comments: RA albuterol sulfate [Ventolin HFA] 1 INHALER inhaler 2 puff inhalation Q6H PRN PRN (Reason: Wheezing) Rx Instructions: 2 PUFFS Q6HRS PRN WHEEZING diphenhydramine HCl [Benadryl] 25 mg Capsule 25 mg PO Q6H PRN PRN (Reason: ITCHING/HIVES) aspirin 81 mg Tablet 81 mg PO BID metformin 500 mg Tablet 500 mg PO BREAKFAST 30 Days Qty: 30 0RF acetaminophen 500 mg Tablet 1,000 mg PO Q6H PRN PRN (Reason: Pain Score 1-3) Qty: 0 0RF ascorbic acid (vitamin C) 500 mg Tablet 500 mg PO BREAKFAST 30 Days Qty: 30 0RF polysaccharide iron complex [Ferrex 150] 150 mg iron Capsule 150 mg PO BREAKFAST 30 Days Qty: 30 0RF fluticasone propionate 50 mcg/actuation [place],Suspension 1 spray NASAL DAILY Qty: 0 0RF tramadol 50 mg Tablet 50 mg PO Q6H PRN PRN (Reason: Pain Score 4-5) 7 Days Qty: 28 0RF Primary Care Provider: Nadeem Parikh Referrals: Nadeem Parikh MD [Primary Care Provider] - Print Language: Kiswahili Disposition Disposition: Acute Care Hospital [facility]
[2024-07-09 22:32] LABS: Absolute Lymphocyte Count 0.74 X10^3/uL (0.83-4.51); Absolute Neutrophil Count 4.8 X10^3/uL (2.0-7.7); Basophil# 0.04 X10^3/uL; Basophil% 0.6 % (0-1); Eosinophil# 0.04 X10^3/uL; Eosinophils% 0.6 % (0-5); Hematocrit 36.9 % (37-47); Hemoglobin 12.1 g/dL (12.0-15.0); Lymphocyte # 0.74 X10^3/ul (0.83-4.51); Mean Corp Hgb Conc 32.8 g/dL (32-36); Mean Corpuscular Hgb 31.9 pg (27.0-32.0); Mean Corpuscular Volume 97.4 fL (81-99); Mean Platelet Vol. 9.9 fl (6.2-12.0); Monocyte# 1.13 X10^3/uL; Monocyte% 16.8 % (0-10); NRBC Flagged by Analyzer 0 % (0-5); Neutrophil # 4.76 X10^3/uL (2.7-7.7); Neutrophil % 70.7 % (47-70); Platelet Count 149 K/mm3 (150-450); RBC Distribution Width CV 12.3 % (11.6-14.6); RBC Distribution Width SD 44.1 fl (35.1-43.9); Red Blood Count 3.79 M/mm3 (4.2-5.4); White Blood Count 6.7 K/mm3 (4.4-11.0)
[2024-07-09] MEDS: Albuterol 2.5 MG/3 ML VIAL.NEB. INHALATION (22:42)
[2024-07-09 22:43] VITALS: PULSE 86; RESP 15
--- NOTE | 2024-07-09 23:05 | RAD_ITS ---
INDICATION: Dyspnea EXAMINATION/TECHNIQUE: X-RAY - XR Chest 2 Views COMPARISON: Prior study dated: 11/04/2022 FINDINGS: LINES/DEVICES: None. LUNGS: No consolidation. No pneumothorax. MEDIASTINUM: Aorta is atherosclerotic. CARDIAC SILHOUETTE: Not enlarged. BONES AND SOFT TISSUES: No acute abnormalities. Surgical hardware in the right shoulder. 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 RAD/Chest PA and Lateral IMPRESSION: No evidence of active intrathoracic disease. Electronically Signed: Tatyana Gao MD at 23:27 EST ,
[2024-07-09 23:31] VITALS: BP 168/70; PULSE 87; RESP 21; TEMP 37.6; O2SAT 94
[2024-07-09 23:32] VITALS: BP 168/70; PULSE 87; RESP 21; TEMP 37.6; O2SAT 95
[2024-07-09 23:33] VITALS: O2SAT 94
[2024-07-09 23:41] LABS: Anion Gap 9 (5-15); BUN 17 mg/dL (7-18); BUN/Creat Ratio 16.2 RATIO (10-20); Calcium,Total 8.8 mg/dL (8.5-10.1); Chloride 102 mmol/L (98-107); Creatinine, Serum 1.05 mg/dL (0.55-1.02); EST Glomerular Filtration Rate 54 mL/min (>60); Est Glom Filt Rate - Afr Amer 65 mL/min (>60); Estimated Creatinine Clearance 44.27 ml/min; Glucose 167 mg/dL (74-106); Potassium 4.2 mmol/L (3.5-5.1); Sodium Level 137 mmol/L (136-145); Troponin-I HS 129 pg/mL (3.0-54.0)
[2024-07-09] MEDS: Aspirin 81 MG TAB.CHEW 324 MG PO (23:56)
[2024-07-09] MEDS: Ondansetron 4 MG/2 ML Vial IV (23:56)
[2024-07-10] VITALS (19 sets, daily range): BP systolic 90–165; BP diastolic 47–74; PULSE 75–89; RESP 14–27; TEMP 36.4–38.2; O2SAT 87–98; BMI 37.0; BMI 36.9
--- NOTE | 2024-07-10 00:26 | PCM.HP.STD ---
[facility] - General General Date of Admission: 07/10/24 Date of Service: 07/10/24 Chief Complaint: Fever, SOB and Cough. HPI Narrative BRIAN ROSALES, is a 79 F with a past medical history of essential hypertension; on chlorthalidone, hyperlipidemia; on simvastatin, obesity; with BMI of 37.9 this admission, DM-2; of unknown control on metformin, chronic tobacco abuse; on as needed albuterol without previous formal diagnosis of COPD, RA; on hydroxychloroquine, CKD; stage IIIa, TANIA, history of vertigo, neuropathy; on gabapentin, depression; on nortriptyline, fibromyalgia, GERD; on omeprazole, OA; primarily of the Left hip with history of Left THR and recent cataract surgery who presents to [facility] ER complaining of shortness of breath and cough. Ms. Rosales reports her symptoms began approximately 4 days prior to admission with a gradual-onset of dyspnea on exertion that progressed to shortness of breath at rest. She states her breathing is worse with movement and laying flat. The patient and her son were checking her pulse oximeter at home and noted a range between ~89-91% on room air at home. She also admits to a productive cough with thick white sputum with some rhinorrhea and fever of 100.2 ?F confirmed in ER. She denies associated chills, nausea, vomiting, diarrhea, constipation, chest pain or headache. In the ER she was noted to have a chest x-ray that was negative for acute pathologic changes and she was subsequently diagnosed with AE COPD with suspected Acute Bacterial Bronchitis complicated by clinical evidence of Acute Respiratory Insufficiency in the setting of ongoing Tobacco Abuse compounded by a mildly elevated initial troponin of 129 pg/mL suspected to be due to Acute Cardiac Strain and she was then admitted to the PCU for ongoing care for stay that is expected to extend beyond 2 midnights. COUNT INCLUDES THE [facility] Medical History Vertigo Rheumatoid arthritis Osteoarthritis Chronic kidney disease Hyperlipidemia Hypertension GERD (gastroesophageal reflux disease) Fibromyalgia Diabetes mellitus Osteoarthritis of left hip Debility Home Medications ?Medication ?Instructions ?Recorded ?Last Taken ?Type albuterol sulfate 90 mcg/actuation 2 puff inhalation Q6H PRN PRN 06/23/15 Unknown History aerosol inhaler (Ventolin HFA) Wheezing gabapentin 100 mg capsule 100 mg PO TIDCM Check with primary 06/23/15 Unknown History doctor hydroxychloroquine 200 mg tablet 200 mg PO DAILYCM Check with 06/23/15 Unknown History primary doctor nortriptyline 25 mg capsule 50 mg PO QHS Check with primary 06/23/15 Unknown History doctor omeprazole 20 mg capsule,delayed 20 mg PO BID Check with primary 06/23/15 06/28/15 07:30 History release doctor simvastatin 10 mg tablet 40 mg PO QHS Check with primary 06/23/15 Unknown History doctor diphenhydramine HCl 25 mg capsule 25 mg PO Q6H PRN PRN ITCHING/HIVES 10/27/22 Unknown History (Benadryl) acetaminophen 500 mg tablet 1,000 mg (2 x 500 mg) PO Q6H PRN 11/13/22 Unknown Rx PRN Pain Score 1-3 #0 tabs ascorbic acid (vitamin C) 500 mg 500 mg PO BREAKFAST 30 days #30 11/13/22 Unknown Rx tablet tabs fluticasone propionate 50 1 spray NASAL DAILY #0 grams 11/13/22 Unknown Rx mcg/actuation nasal spray,suspension chlorthalidone 25 mg tablet 25 mg PO DAILY 07/10/24 Unknown History ketorolac 0.5 % eye drops 1 drp ophthalmic (eye) Q8H 07/10/24 Unknown History metformin 500 mg tablet 500 mg PO DINNER 07/10/24 Unknown History polymyxin B sulfate 10,000 1 drp RIGHT EYE 4X/DAY 07/10/24 Unknown History unit-trimethoprim 1 mg/mL eye drops Allergy/AdvReac Type Severity Reaction Status Date / Time cephalexin monohydrate (From Allergy Hives Verified 06/23/15 09:19 Keflex) codeine Allergy Hives Verified 06/23/15 09:19 ketorolac tromethamine (From Allergy Hives Verified 06/23/15 09:19 Toradol) latex Allergy Rash Verified 06/23/15 09:19 lorazepam Allergy Hives Verified 06/23/15 09:19 meloxicam (From Mobic) Allergy Chest Verified 06/23/15 09:19 tightness meperidine HCl (From Demerol) Allergy Hives Verified 06/23/15 09:19 morphine Allergy Hives Verified 06/23/15 09:19 moxifloxacin HCl (From Allergy Hives Verified 06/23/15 09:19 Avelox) oxycodone HCl (From Percocet) Allergy Hives Verified 06/23/15 09:19 phenobarbital Allergy Hives Verified 06/23/15 09:19 piroxicam (From Feldene) Allergy Hives Verified 06/23/15 09:19 propoxyphene napsylate (From Allergy Hives Verified 06/23/15 09:19 Darvocet-N) triamcinolone acetonide Allergy Rash Verified 06/28/15 09:08 (From Kenalog) celecoxib (From Celebrex) AdvReac Upset Verified 06/23/15 09:19 Stomach moxifloxacin AdvReac Nausea/Vom/ Verified 06/23/15 09:19 Diarrhea naproxen AdvReac Upset Verified 06/23/15 09:19 Stomach tramadol HCl (From Ultram) AdvReac Nausea/Vom/ Verified 06/23/15 09:19 Diarrhea Family History Father Heart disease COPD (chronic obstructive pulmonary disease) Mother Myocardial infarction Surgical History History of tubal ligation History of rotator cuff surgery History of total bilateral knee replacement History of carpal tunnel surgery of right wrist History of cholecystectomy History of section History of total left hip arthroplasty Social History household members: none Smoking Status: Current every day smoker tobacco type: cigarettes alcohol intake: never substance use type: does not use ROS ROS Narrative Review of Systems: Constitutional: Patient admits to fever and chills. Eyes: Patient denies changes in vision or discharge from eyes. ENT: Patient admits to runny nose but denies sore throat or ear pain. Resp: Patient admits to shortness of breath and cough productive of thick whitish sputum as per HPI. CV: Patient denies chest pain, palpitations or heart racing. GI: Patient denies abdominal pain, nausea, vomiting, diarrhea or constipation. : Patient denies dysuria or hematuria. MSK: Patient denies arthralgias or myalgias. Skin: Patient denies rash, abscess or jaundice. Psych: Patient denies symptoms of uncontrolled depression or anxiety. Neuro: Patient denies headache, paresthesias or focal neurologic deficits. Allergy: Patient denies lip swelling, tongue swelling or urticaria. Hematology: Patient denies easy bleeding or easy bruisability. Endocrinology: Patient denies polyuria, polydipsia or polyphagia. 14 point review of systems otherwise negative except for positives noted above in HPI. Vital Signs Vital Signs Vital Signs: 07/09/24 21:37 07/09/24 22:43 07/09/24 23:31 Temperature 99.2 F H 99.6 F H Temperature Source Oral Oral Pulse Rate 87 86 87 Respiratory Rate 20 H 15 21 H Respiratory Effort Respiratory Depth Respiratory Pattern Normal Blood Pressure 161/74 H 168/70 H Blood Pressure Mean 103 102 Pulse Ox 95 94 Oxygen Delivery Method Room Air Room Air Oxygen Flow Rate (L/min) 07/09/24 23:32 07/09/24 23:33 07/10/24 00:00 Temperature 99.6 F H 99.2 F H Temperature Source Oral Oral Pulse Rate 87 85 Respiratory Rate 21 H 18 Respiratory Effort Short of Breath Respiratory Depth Normal Respiratory Pattern Normal Blood Pressure 168/70 H 165/71 H Blood Pressure Mean 102 102 Pulse Ox 95 89 Oxygen Delivery Method Room Air Room Air Room Air Oxygen Flow Rate (L/min) 07/10/24 00:03 07/10/24 00:04 Temperature Temperature Source Pulse Rate Respiratory Rate Respiratory Effort Respiratory Depth Respiratory Pattern Blood Pressure Blood Pressure Mean Pulse Ox 87 95 Oxygen Delivery Method Room Air Nasal Cannula Oxygen Flow Rate (L/min) 2 Weight Weight: 194 lb 0.108 oz Body Mass Index (BMI) 37.8 Physical Exam Const alert, oriented x3 and no apparent distress Constitutional Narrative: Obese and ill in appearance. General Appearance: cooperative HEENT normocephalic, head/scalp atraumatic, hearing grossly normal bilaterally and moist oral mucous membranes Eyes PERRL and EOMs intact bilaterally Neck no lymphadenopathy and supple Resp Resp Narrative: Diminished breath sounds throughout with scattered rhonchi. Auscultation: rhonchi Cardio regular rate and regular rhythm GI normal to inspection, nondistended, normoactive bowel sounds, soft to palpation, non-tender and non-distended Extremity normal to inspection, full ROM and no clubbing, cyanosis or edema Skin Skin Narrative: Patient has no evidence of rash, abscess or jaundice. Neuro oriented x3, CN's II-XII intact bilaterally, moves all extremities and no focal motor deficits Sensorium / Orientation: awake, alert, oriented to person, oriented to place and oriented to time Speech: speech normal Psych affect normal Results Medical Records Data Attestation: I reviewed the patient's medical records Lab / Micro Data Attestation: I reviewed the patient's lab results. 07/10/24 03:17 07/10/24 03:17 Labs: Laboratory Results - last 24 hr 07/09/24 21:42: WBC 6.7, RBC 3.79 L, Hgb 12.1, Hct 36.9 L, MCV 97.4, MCH 31.9, MCHC 32.8, RDW Std Deviation 44.1 H, RDW Coeff of Nina 12.3, Plt Count 149 L, MPV 9.9, Immature Gran % (Auto) 0.300, Neut % (Auto) 70.7 H, Lymph % (Auto) 11.0 L, [place] % (Auto) 16.8 H, Eos % (Auto) 0.6, Baso % (Auto) 0.6, Absolute Neuts (auto) 4.8, Absolute Lymphs (auto) 0.74 L, Nucleated RBC % 0, Sodium 137, Potassium 4.2, Chloride 102, Carbon Dioxide 26.0, Anion Gap 9, BUN 17, Creatinine 1.05 H, Estim Creat Clear Calc 44.27, Est GFR (MDRD) Af Amer 65, Est GFR (MDRD) Non-Af 54 L, BUN/Creatinine Ratio 16.2, Glucose 167 H, Calcium 8.8, Troponin I High Sens 129 H* Micro: Microbiology 07/09/24 22:42 Mucosa - Nose SARS-CoV-2, Influenza & RSV (PCR) - Final Imaging Radiology Impression Chest X-Ray 07/09/24 23:05 IMPRESSION: No evidence of active intrathoracic disease. Electronically Signed: Tatyana Gao MD at 23:27 EST , Assessment & Plan Assessment/Plan (1) Acute bronchitis with COPD: (2) Respiratory insufficiency: (3) Tobacco abuse: (4) Elevated troponin: (5) Hypomagnesemia: (6) Obesity (BMI 30-39.9): PLAN: Plan 1. AE COPD with suspected Acute Bacterial Bronchitis - Admit to PCU. Continue nebulizers begun in ER plus give IV Solu-Medrol and IV doxycycline. Give Tylenol as needed for pain or fever. Finally, we will check extended viral respiratory panel. 2. Acute Respiratory Insufficiency in the setting of Chronic Tobacco Abuse complicating #1 - Wean supplemental oxygen as tolerated. Tobacco cessation will be strongly encouraged with nicotine patch offered to control cravings. 3. Mildly elevated initial troponin of 129 pg/mL suspected to be due to Acute Cardiac Strain attributable to #1 & #2 - Patient given ECASA in ER plus we will give full-dose Lovenox for now and check Lexiscan NST in AM to evaluate for potential underlying ischemia. Serialize troponin. Check echocardiogram to evaluate LVEF. Mild d-dimer elevation of 0.92 present on admission normal when adjusted for age. 4. Hypomagnesemia of 1.3 mg/dL present on admission compounding #1 - #3 - Give supplemental magnesium sulfate IV once and then recheck level to confirm correction. 5. Obesity; with BMI of 37.9 this admission adding to the medical complexity of #1 - #4 - Weight loss will be recommended. Check TSH. This complicates her case and may hamper recovery. 6. Essential hypertension; on chlorthalidone - Resume chlorthalidone as before. Give Hydralazine IV prn for systolic blood pressure > 160 mmHg. 7. Hyperlipidemia; on simvastatin - Continue simvastatin and Check Lipid Profile to reassess status in light of #2. 8. DM-2; of unknown control on metformin - Hold metformin and check HgbA1c. Check FSBS q. AC/HS plus lowest-intensity SSI. 9. RA; on hydroxychloroquine - Resume hydroxychloroquine as previous. 10. CKD; stage IIIa - Stable. 11. TANIA - Check iron levels and ferritin with patient currently not on supplementation. Patient had a normal hemoglobin of 12.1 g/dL and MCV of 97.4 fL present on admission. 12. History of vertigo - Noted with no signs of recurrence. Give meclizine prn if vertigo develops. 13. Neuropathy; on gabapentin - Continue gabapentin as before. 14. Depression; on nortriptyline - Resume nortriptyline as previous. 15. Fibromyalgia - Stable. 16. GERD; on omeprazole - Maintain PPI. 17. OA; primarily of the Left hip with history of Left THR - Continue pain management scale as outlined above given this patient's extensive allergy profile. 18. DVT prophylaxis - Patient ordered full-dose Lovenox x 1 for #3 plus SCD's. Total time: Approximately (but not less than) 75 minutes. Charges/Coding Visit Charges Inpatient E&M: 96947 Init Hosp L3
[2024-07-10 00:43] LABS: Troponin-I HS 126 pg/mL (3.0-54.0)
--- NOTE | 2024-07-10 00:43 | ED.RN ---
This RN gave the patient a small cup of water and noticed the patients SPO2 drop down to 85% after sipping on the water. Patient was then 87% for several minutes and this RN applied oxygen to the patient. See chart for Nasal Cannula admin.
--- NOTE | 2024-07-10 01:34 | ECHOD_ITS ---
Reason For Study: S/P IA Procedure This was a 2D Doppler, Color Flow transthoracic echocardiogram. Myocardial strain analysis was performed in this exam to aid in the assessment of cardiac function. Exam performed portable in ICU/CCU. Left Ventricle Normal LV size. Mild concentric left ventricular hypertrophy. The global longitudinal strain = -18.2 % (normal). The left ventricular ejection fraction is 65 %. Stage 1 diastolic dysfunction. Right Ventricle Normal right ventricle. Atria There is severe biatrial dilatation. Mitral Valve Moderate mitral annular calcification. Mild (1+) mitral valve insufficiency. Tricuspid Valve Mild tricuspid valve insufficiency. Unable to estimate RV systolic pressure due to insufficient tricuspid regurgitant envelope. Aortic Valve Trisinus/trileaflet aortic valve. Aortic sclerosis, no stenosis. Pulmonic Valve The pulmonic valve is not well visualized. Great Vessels Normal sized aortic root. Pericardium/Pleural No pericardial effusion. MMode/2D Measurements & Calculations LVIDd: 4.6 cm IVSd: 1.3 cm LVOT diam: 2.2 cm LVIDs: 2.7 cm LVPWd: 1.2 cm LVOT area: 3.7 cm2 RVDd: 3.8 cm FS: 40.8 % LA dimension: 5.2 cm asc Aorta Diam: 2.9 cm LAV(MOD-bp): 58.9 ml LAV(MOD-bp) Indexed: 32.8 ml/m2 LAV(MOD-sp2): 75.4 ml LAV(MOD-sp4): 40.5 ml SV(MOD-sp4): 29.0 ml LVAd ap4: 17.8 cm2 LVAd ap2: 19.1 cm2 LVLd ap4: 6.2 cm LVLd ap2: 6.5 cm SI(MOD-sp4): 16.1 ml/m2 EDV(MOD-sp4): 41.3 ml EDV(MOD-sp2): 44.5 ml EDV(sp4-el): 43.2 ml EDV(sp2-el): 47.4 ml LVAs ap4: 8.9 cm2 LVAs ap2: 9.3 cm2 LVLs ap4: 5.5 cm LVLs ap2: 5.7 cm ESV(MOD-sp4): 12.3 ml ESV(MOD-sp2): 13.5 ml ESV(sp4-el): 12.4 ml ESV(sp2-el): 13.0 ml EF(MOD-sp4): 70.3 % EF(MOD-sp2): 69.7 % EF(sp4-el): 71.4 % SV(MOD-sp2): 31.0 ml SV(sp4-el): 30.9 ml Ao sinus diam: 3.2 cm SI(MOD-sp2): 17.3 ml/m2 Ao ST Junction: 2.5 cm LA dimension(2D): 3.8 cm LA A4 area: 15.8 cm2 TAPSE: 2.0 cm RA A4 area: 11.3 cm2 Time Measurements MV dec time: 0.21 sec Doppler Measurements & Calculations MV E max rafael: 135.7 cm/sec Lat Peak E' Rafael: 7.7 cm/sec Med Peak E' Rafael: 7.6 cm/sec MV A max rafael: 149.1 cm/sec E/E' lat: 17.6 E/E' med: 17.9 MV E/A: 0.91 MV V2 max: 167.1 cm/sec MV dec slope: 650.0 cm/sec2 Ao V2 max: 170.7 cm/sec MV max P.2 mmHg Ao max P.7 mmHg MV V2 mean: 115.7 cm/sec Ao V2 mean: 129.4 cm/sec MV mean P.9 mmHg Ao mean P.2 mmHg MV V2 VTI: 41.2 cm Ao V2 VTI: 33.2 cm MVA(VTI): 2.4 cm2 AV (velocity ratio): 0.81 JARON(I,D): 3.0 cm2 JARON(V,D): 2.7 cm2 LV V1 max: 123.7 cm/sec SV(LVOT): 99.4 ml PA V2 max: 76.3 cm/sec LV V1 max P.1 mmHg LV V1 mean P.7 mmHg LV V1 mean: 91.0 cm/sec LV V1 VTI: 26.8 cm ECHO/Echo Complete Interpretation Summary Mild concentric left ventricular hypertrophy. The left ventricular ejection fraction is 65 %. Stage 1 diastolic dysfunction. Moderate mitral annular calcification. Mild (1+) mitral valve insufficiency. Mild tricuspid valve insufficiency. Ordering Physician: Amilcar Farrell Referring Physician: Nadeem Parikh M.D. Performed By: Edyta Vale RDCS
[2024-07-10 02:09] LABS: D-Dimer Quantitative (DVT/PE) 0.92 FEU/ug/m (0.27-0.49)
[2024-07-10] MEDS: 0.9% Normal Saline (1000mL) 1,000 ML 70 ML IV (02:17)
[2024-07-10] MEDS: Enoxaparin 100 MG/ML Syringe 90 MG SC (02:19)
[2024-07-10] MEDS: Clopidogrel Bisulfate 75 MG Tablet PO (02:19)
[2024-07-10 03:25] LABS: Absolute Lymphocyte Count 0.79 X10^3/uL (0.83-4.51); Absolute Neutrophil Count 4.1 X10^3/uL (2.0-7.7); Basophil# 0.03 X10^3/uL; Basophil% 0.5 % (0-1); Eosinophil# 0.02 X10^3/uL; Eosinophils% 0.3 % (0-5); Hematocrit 34.1 % (37-47); Hemoglobin 11.2 g/dL (12.0-15.0); Lymphocyte # 0.79 X10^3/ul (0.83-4.51); Lymphocyte % 13.6 % (19-41); Mean Corp Hgb Conc 32.8 g/dL (32-36); Mean Corpuscular Volume 97.4 fL (81-99); Mean Platelet Vol. 9.5 fl (6.2-12.0); Monocyte# 0.85 X10^3/uL; Monocyte% 14.6 % (0-10); NRBC Flagged by Analyzer 0 % (0-5); Neutrophil # 4.11 X10^3/uL (2.7-7.7); Neutrophil % 70.8 % (47-70); Platelet Count 133 K/mm3 (150-450); RBC Distribution Width CV 12.3 % (11.6-14.6); RBC Distribution Width SD 44.1 fl (35.1-43.9); White Blood Count 5.8 K/mm3 (4.4-11.0)
[2024-07-10 03:49] LABS: Troponin-I HS 131 pg/mL (3.0-54.0)
[2024-07-10 03:51] LABS: AST(SGOT) 27 U/L (15-37); Alanine Aminotransfer ALT/SGPT 20 U/L (13-56); Albumin, Serum 3.1 g/dL (3.2-5.0); Alkaline Phosphatase 77 U/L (45-117); Anion Gap 7 (5-15); BUN 16 mg/dL (7-18); Calcium,Total 8.3 mg/dL (8.5-10.1); Chloride 104 mmol/L (98-107); Creatinine, Serum 0.89 mg/dL (0.55-1.02); EST Glomerular Filtration Rate 66 mL/min (>60); Est Glom Filt Rate - Afr Amer 79 mL/min (>60); Estimated Creatinine Clearance 50.59 ml/min; Globulin 3.2 g/dL (2.2-4.2); Glucose 138 mg/dL (74-106); Magnesium 1.3 mg/dL (1.6-2.6); Phosphorus 3.6 mg/dL (2.5-4.9); Potassium 3.8 mmol/L (3.5-5.1); Protein, Total 6.3 g/dL (6.4-8.2); Sodium Level 136 mmol/L (136-145)
[2024-07-10 04:39] LABS: Ferritin 55 ng/mL (8-252); Iron 13 ug/dL (50-170); Iron Binding Capacity,Total 338 ug/dL (250-450); PERCENT IRON SATURATION 3.8 % (15.0-55.0)
[2024-07-10] MEDS: Magnesium Sulfate 2 GM in Dextrose 5%-Water (100mL Bag) 100 ML IV (04:44)
[2024-07-10] MEDS: KETOROLAC TROMETHAMINE 5 ML DROPS 1 ML RIGHT EYE ×3 (04:44→22:54)
[2024-07-10] MEDS: Polymixin B Sulf/Trimethoprim 10 ml Bottle 1 DRP RIGHT EYE ×4 (04:45→22:54)
[2024-07-10 05:05] LABS: Bedside Glucose 140 mg/dL (74-106)
[2024-07-10 08:44] LABS: Magnesium 1.3 mg/dL (1.6-2.6)
[2024-07-10] MEDS: Oseltamivir Phosphate 75 MG Capsule PO ×2 (10:05→23:05)
[2024-07-10] MEDS: Doxycycline 100 MG in 0.9% Normal Saline (250mL Bag) 250 ML 250 MG IV ×2 (10:05→22:52)
[2024-07-10] MEDS: Lactobacillis Acidophilus 1 CAP PO (10:06)
[2024-07-10] MEDS: Pantoprazole Sodium 20 MG Tablet PO ×2 (10:07→22:54)
[2024-07-10] MEDS: Fluticasone 0.05% 1 SPRAY NASAL.SRY NASAL (10:07)
[2024-07-10] MEDS: Ascorbic Acid 500 MG Tablet PO (10:08)
[2024-07-10] MEDS: Hydroxychloroquine 200 MG Tablet PO (10:08)
[2024-07-10] MEDS: Cholecalciferol (Vit D3) 125 MCG CAPSULE (5,000 UNITS) PO (10:08)
[2024-07-10] MEDS: Gabapentin 100 MG Capsule PO ×3 (10:11→17:06)
[2024-07-10] MEDS: Ipratropium/Albuterol Sulfate 3 ML AMPUL.NEB INHALATION ×2 (11:48→15:22)
[2024-07-10] MEDS: Glucerna Shake 120 ML LIQUID PO (11:49)
[2024-07-10] MEDS: Insulin Lispro 100 UNIT/ML INSULN.PEN SC ×3 (11:50→22:55)
[2024-07-10] MEDS: Ondansetron 4 MG/2 ML Vial IV (12:13)
[2024-07-10] MEDS: 0.9% Saline Lock 10 ML Syringe IV (12:14)
--- NOTE | 2024-07-10 12:49 | CASEMGMT ---
EAGLE FERREIRA Assessment: Face to Face with pt for initial transition planning/care coordination assessment. EAGLE FERREIRA introduced self and role at [facility], pt voices understanding and consents to assessment. Pt is A&O x4 and answers all questions appropriately at this time. Care providers, pharmacy, and demographics verified/updated. Strata: 2 Admitting Dx: AE COPD, Acute Bacterial Bronchitis, Respiratory PCP: Jl Specialists: , [facility]; Jennifer, [facility]. Preferred Pharmacy: [facility]: yes LNOK: Ramez Lag[place] and [place] Living Arrangements: Pt lives alone in a 1 story home with 3 steps and hand rails to enter. ADLs: Pt is I at baseline with ADLs and IADLs. Transportation: Pt drives self and denies concerns with transportation. DME: Cane, shower bench, high riser toilet seat, HHC/SNF: Pt previously in TCU and [facility] HHC. Pt states would like to return home at time of DC if able to do so. Follow therapy for recommendations. Pt states no further concerns/needs. CM to follow. Advised pt to ask CM if any further question/concerns/needs arise, voices understanding. Pt Goal: TBD Plan: TBD, follow therapy for recommendations. Pt does not use O2 at home, currently using 2L at the hospital. EAGLE FERREIRA discussed O2 needs at DC, provided a verbal list of local providers. Pt states her got his O2 through [employer], she would also like to get her O2 through them as well. Deisy GUILLERMO CM
--- NOTE | 2024-07-10 13:14 | CASEMGMT ---
RN CM looked up O2 providers, did not see [facility] listed as a provider. Into Pt room to see if [facility] or [facility] sounded familiar as they are located out of [place]. Pt states [facility] is correct and the DME provider of choice.
[2024-07-10 14:29] LABS: Bedside Glucose 165 mg/dL (74-106)
--- NOTE | 2024-07-10 16:37 | PCM.PN.HOSP ---
Reason for Visit Reason for Visit: Diagnoses Obesity, unspecified (07/10/24) Hypomagnesemia (07/10/24) Acute bronchitis, unspecified (07/10/24) Chronic obstructive pulmonary disease with (acute) lower respiratory infection (07/10/24) Other abnormalities of breathing (07/10/24) Other specified abnormal findings of blood chemistry (07/10/24) Tobacco use (07/10/24) Objective Data Objective Data Vital Signs: Vital Signs Temp Pulse Resp BP Pulse Ox O2 Del Method O2 Flow Rate 98.0 F 75 14 124/48 H 96 Nasal Cannula 2 07/10/24 01:58 07/10/24 03:00 07/10/24 01:58 07/10/24 01:58 07/10/24 02:20 07/10/24 02:20 07/10/24 02:20 Oxygen Flow Rate (L/min) 2 Oxygen Delivery Method Nasal Cannula Weight: 183 lb 3.266 oz Body Mass Index (BMI) 36.9 Intake & Output: Intake and Output for Last 24 Hours 07/08/24 07/09/24 07/10/24 23:59 23:59 23:59 Intake Total 376.67 / 376.67 Balance 376.67 / 376.67 Lab / Micro Data 07/10/24 03:17 07/10/24 03:17 Labs: Laboratory Results - last 24 hr 07/09/24 21:42: WBC 6.7, RBC 3.79 L, Hgb 12.1, Hct 36.9 L, MCV 97.4, MCH 31.9, MCHC 32.8, RDW Std Deviation 44.1 H, RDW Coeff of Nina 12.3, Plt Count 149 L, MPV 9.9, Immature Gran % (Auto) 0.300, Neut % (Auto) 70.7 H, Lymph % (Auto) 11.0 L, [place] % (Auto) 16.8 H, Eos % (Auto) 0.6, Baso % (Auto) 0.6, Absolute Neuts (auto) 4.8, Absolute Lymphs (auto) 0.74 L, Nucleated RBC % 0, D-Dimer Quant (PE/DVT) 0.92 H*, Sodium 137, Potassium 4.2, Chloride 102, Carbon Dioxide 26.0, Anion Gap 9, BUN 17, Creatinine 1.05 H, Estim Creat Clear Calc 44.27, Est GFR (MDRD) Af Amer 65, Est GFR (MDRD) Non-Af 54 L, BUN/Creatinine Ratio 16.2, Glucose 167 H, Calcium 8.8, Troponin I High Sens 129 H*, TSH 2.190 07/10/24 00:00: Troponin I High Sens 126 H* 07/10/24 03:17: WBC 5.8, RBC 3.50 L, Hgb 11.2 L, Hct 34.1 L, MCV 97.4, MCH 32.0, MCHC 32.8, RDW Std Deviation 44.1 H, RDW Coeff of Nina 12.3, Plt Count 133 L, MPV 9.5, Immature Gran % (Auto) 0.200, Neut % (Auto) 70.8 H, Lymph % (Auto) 13.6 L, [place] % (Auto) 14.6 H, Eos % (Auto) 0.3, Baso % (Auto) 0.5, Absolute Neuts (auto) 4.1, Absolute Lymphs (auto) 0.79 L, Nucleated RBC % 0, Sodium 136, Potassium 3.8, Chloride 104, Carbon Dioxide 24.0, Anion Gap 7, BUN 16, Creatinine 0.89, Estim Creat Clear Calc 50.59, Est GFR (MDRD) Af Amer 79, Est GFR (MDRD) Non-Af 66, BUN/Creatinine Ratio 18.0, Glucose 138 H, Calcium 8.3 L, Phosphorus 3.6, Magnesium 1.3 L, Iron 13 L, TIBC 338, Iron Saturation 3.8 L, Ferritin 55, Total Bilirubin 0.30, AST 27, ALT 20, Alkaline Phosphatase 77, Troponin I High Sens 131 H*, Total Protein 6.3 L, Albumin 3.1 L, Globulin 3.2, Albumin/Globulin Ratio 1.0 07/10/24 04:43: POC Glucose 140 H Micro: Microbiology 07/10/24 02:20 Mucosa - Nasopharyngeal Respiratory Panel (PCR) - Final Influenzae A 07/09/24 22:42 Mucosa - Nose SARS-CoV-2, Influenza & RSV (PCR) - Final Radiography Diagnostic Testing: Radiology Impression Chest X-Ray 07/09/24 23:05 IMPRESSION: No evidence of active intrathoracic disease. Electronically Signed: Tatyana Gao MD at 23:27 EST , Physical Exam Narrative Seen and examined Patient stated she is short of breath, cough with whitish sputum for about 4 days history of smoking since age of 18, currently 8 cigarettes/day. She does not know whether she has COPD. She denies chest pain, pressure but had mild chest tightness but Physical exam General: Alert, Oriented x3, Cooperative HEENT: Atraumatic, PERRLA, EOMI, Normocephalic Oral: No Gingival or Mucosal Lesions/ Ulcerations Neck: Supple, No JVD, Negative Carotid Bruits Chest wall/Lungs: Air entry diminished in bilateral lung bases. Bilateral coarse crepitation, rhonchi Cardiovascular: Regular rate, Regular Rhythm, Normal S1, Normal S2, No M/G/R Abdomen: Bowel Sounds Present, Soft, Non Tender, Non-Distended : No dysuria. No renal angle tenderness. No suprapubic tenderness. Extremities: No edema, Capillary Refill Less than 3 Seconds Skin: No rashes, No breakdown Musculoskeletal: No Tenderness to Palpation of Joints or Extremities Neurological: Cranial nerves II-XII grossly intact, DTR 2+/4. No acute focal neurological deficit. Psych/Mental Status: Normal Affect, Appropriate. Assessment & Plan Assessment/Plan (1) Acute bronchitis with COPD: (2) Respiratory insufficiency: (3) Tobacco abuse: (4) Elevated troponin: (5) Hypomagnesemia: (6) Obesity (BMI 30-39.9): PLAN: Plan 79-year-old female was admitted with shortness of breath for last 4 along with productive cough and mild rhinorrhea. Her pulse ox was 89 to 91% on room air. 1. Acute exacerbation of COPD/emphysema most likely due to influenza A bronchitis: Patient is being admitted in ICU as PCU status. Respiratory was positive of influenza A. Patient started on Tamiflu 75 mg twice daily. Patient is being managed on scheduled bronchodilator, IV Solu-Medrol, Mucinex, incentive spirometry and Pep. 2. Mild elevated troponin possible due to increased cardiac demand: Patient stated about 6 months ago she had some EKG changes and echo findings of minor heart attack as told by [facility]. No documentation to confirm. Troponins 129, 126, 131. D-dimer is elevated 0.92, age-adjusted D-dimer is normal. Modified Wells criteria for PE is 0. Echo is ordered 2D echo reviewed. EF 65%, stage I diastolic dysfunction, mild concentric LVH, mild TR and MR suggestive of chronic HFpEF. 3. Hypomagnesemia of 1.3 mg/dL: Magnesium sulfate replaced. Repeat magnesium 1 4. Chronic peripheral neuropathy on gabapentin 5. Obesity; with BMI of 37.9 this admission: Weight loss recommended 6. Essential hypertension; on chlorthalidone -hold chlorthalidone. She looks dry. Getting IV fluid normal 7. Hyperlipidemia; on simvastatin - Continue simvastatin. Lipid profile pending 8. DM-2; of unknown control on metformin - Hold metformin and check HgbA1c. Check FSBS q. AC/HS plus lowest-intensity SSI. 9. RA; on hydroxychloroquine - Resume hydroxychloroquine as previous. 10. CKD; stage IIIa - Stable. 11. Chronic iron-deficiency mild anemia: Patient had a normal hemoglobin of 12.1 g/dL and MCV of 97.4 fL present on admission. Iron 63.8% ferritin 55,. 12. Other multiple comorbidities include anxiety and depression on nortriptyline, GERD and fibromyalgia. Degenerative osteoarthritis of left hip status post left THR DVT prophylaxis - Patient ordered full-dose Lovenox x 1 for #3 plus SCD's. Clinical Impression(s) from Imaging Studies Chest X-Ray 07/09/24 23:05 IMPRESSION: No evidence of active intrathoracic disease. Electronically Signed: Tatyana Gao MD at 23:27 EST , Echocardiogram 07/10/24 01:34 Interpretation Summary Mild concentric left ventricular hypertrophy. The left ventricular ejection fraction is 65 %. Stage 1 diastolic dysfunction. Moderate mitral annular calcification. Mild (1+) mitral valve insufficiency. Mild tricuspid valve insufficiency. Ordering Physician: Amilcar Farrell Referring Physician: Nadeem Parikh M.D. Performed By: Edyta Vale RDCS Charges/Coding Visit Charges Inpatient E&M: 79229 Subs Hosp L2
--- NOTE | 2024-07-10 18:06 | NURSING ---
Patient's son, Ramez, notified of patient moving out of ICU to PCU
[2024-07-10 21:56] LABS: Bedside Glucose 182 mg/dL (74-106)
[2024-07-10] MEDS: Atorvastatin Calcium 20 MG Tablet PO (22:54)
[2024-07-10 23:25] LABS: Bedside Glucose 161 mg/dL (74-106)
[2024-07-11] VITALS (9 sets, daily range): BP systolic 141–154; BP diastolic 51–60; PULSE 66–85; RESP 16–20; TEMP 36.1–36.7; O2SAT 86–99; BMI 37.0
[2024-07-11] MEDS: KETOROLAC TROMETHAMINE 5 ML DROPS 1 ML RIGHT EYE ×2 (06:35→14:49)
[2024-07-11] MEDS: Insulin Lispro 100 UNIT/ML INSULN.PEN SC ×2 (06:36→16:49)
[2024-07-11] MEDS: Polymixin B Sulf/Trimethoprim 10 ml Bottle 1 DRP RIGHT EYE ×2 (06:36→14:49)
[2024-07-11] MEDS: Ipratropium/Albuterol Sulfate 3 ML AMPUL.NEB INHALATION ×3 (06:52→19:15)
[2024-07-11 07:05] LABS: Bedside Glucose 151 mg/dL (74-106)
[2024-07-11 07:39] LABS: Absolute Lymphocyte Count 0.52 X10^3/uL (0.83-4.51); Absolute Neutrophil Count 7.6 X10^3/uL (2.0-7.7); Hemoglobin 11.5 g/dL (12.0-15.0); Lymphocyte # 0.52 X10^3/ul (0.83-4.51); Mean Corp Hgb Conc 31.9 g/dL (32-36); Mean Corpuscular Hgb 31.5 pg (27.0-32.0); Mean Corpuscular Volume 98.6 fL (81-99); Mean Platelet Vol. 9.6 fl (6.2-12.0); Monocyte# 0.43 X10^3/uL; NRBC Flagged by Analyzer 0 % (0-5); Neutrophil # 7.63 X10^3/uL (2.7-7.7); Neutrophil % 88.5 % (47-70); POSITIVE DIFFERENTIAL YES; Platelet Count 141 K/mm3 (150-450); RBC Distribution Width CV 12.1 % (11.6-14.6); RBC Distribution Width SD 44.1 fl (35.1-43.9); Red Blood Count 3.65 M/mm3 (4.2-5.4); White Blood Count 8.6 K/mm3 (4.4-11.0)
[2024-07-11 08:00] LABS: Anion Gap 7 (5-15); BUN 19 mg/dL (7-18); BUN/Creat Ratio 21.5 RATIO (10-20); Calcium,Total 8.7 mg/dL (8.5-10.1); Chloride 105 mmol/L (98-107); Creatinine, Serum 0.88 mg/dL (0.55-1.02); EST Glomerular Filtration Rate 66 mL/min (>60); Est Glom Filt Rate - Afr Amer 80 mL/min (>60); Glucose 163 mg/dL (74-106); Potassium 4.6 mmol/L (3.5-5.1); Sodium Level 136 mmol/L (136-145)
[2024-07-11] MEDS: Fluticasone 0.05% 1 SPRAY NASAL.SRY NASAL (09:13)
[2024-07-11] MEDS: Lactobacillis Acidophilus 1 CAP PO ×4 (09:13→23:32)
[2024-07-11] MEDS: Gabapentin 100 MG Capsule PO ×3 (09:13→16:49)
[2024-07-11] MEDS: Pantoprazole Sodium 20 MG Tablet PO ×2 (09:13→23:33)
[2024-07-11] MEDS: Oseltamivir Phosphate 75 MG Capsule PO ×2 (09:14→23:33)
--- NOTE | 2024-07-11 09:55 | PN.HOSP_ITS ---
Reason for Visit Reason for Visit: Diagnoses Obesity, unspecified (07/10/24) Hypomagnesemia (07/10/24) Acute bronchitis, unspecified (07/10/24) Chronic obstructive pulmonary disease with (acute) lower respiratory infection (07/10/24) Other abnormalities of breathing (07/10/24) Other specified abnormal findings of blood chemistry (07/10/24) Tobacco use (07/10/24) Objective Data Objective Data Vital Signs: Vital Signs Temp Pulse Resp BP Pulse Ox O2 Del Method O2 Flow Rate 97.5 F L 79 18 144/51 H 99 Nasal Cannula 2 07/11/24 09:18 07/11/24 09:18 07/11/24 09:18 07/11/24 09:18 07/11/24 09:18 07/11/24 09:18 07/11/24 09:18 Oxygen Flow Rate (L/min) 2 Oxygen Delivery Method Nasal Cannula Weight: 183 lb 6.793 oz Body Mass Index (BMI) 37.0 Intake & Output: Intake and Output for Last 24 Hours 07/09/24 07/10/24 07/11/24 23:59 23:59 23:59 Intake Total 1824.00 / 1824.00 Output Total 250 / 250 150 / 150 Balance 1574.00 / 1574.00 -150 / -150 Lab / Micro Data 07/11/24 07:00 07/11/24 07:00 Labs: Laboratory Results - last 24 hr 07/10/24 11:37: POC Glucose 165 H 07/10/24 16:41: POC Glucose 182 H 07/10/24 22:50: POC Glucose 161 H 07/11/24 06:35: POC Glucose 151 H 07/11/24 07:00: WBC 8.6, RBC 3.65 L, Hgb 11.5 L, Hct 36.0 L, MCV 98.6, MCH 31.5, MCHC 31.9 L, RDW Std Deviation 44.1 H, RDW Coeff of Nina 12.1, Plt Count 141 L, MPV 9.6, Immature Gran % (Auto) 0.500, Neut % (Auto) 88.5 H, Lymph % (Auto) 6.0 L, [place] % (Auto) 5.0, Eos % (Auto) 0.0, Baso % (Auto) 0.0, Absolute Neuts (auto) 7.6, Absolute Lymphs (auto) 0.52 L, Nucleated RBC % 0, Sodium 136, Potassium 4.6, Chloride 105, Carbon Dioxide 25.0, Anion Gap 7, BUN 19 H, Creatinine 0.88, Estim Creat Clear Calc 51.20, Est GFR (MDRD) Af Amer 80, Est GFR (MDRD) Non-Af 66, BUN/Creatinine Ratio 21.5 H, Glucose 163 H, Calcium 8.7 Micro: Microbiology 07/10/24 02:20 Mucosa - Nasopharyngeal Respiratory Panel (PCR) - Final Influenza A (Subtype H3) 07/09/24 22:42 Mucosa - Nose SARS-CoV-2, Influenza & RSV (PCR) - Final Radiography Diagnostic Testing: Radiology Impression Echocardiogram 07/10/24 01:34 Interpretation Summary Mild concentric left ventricular hypertrophy. The left ventricular ejection fraction is 65 %. Stage 1 diastolic dysfunction. Moderate mitral annular calcification. Mild (1+) mitral valve insufficiency. Mild tricuspid valve insufficiency. Ordering Physician: Amilcar Farrell Referring Physician: Nadeem Parikh M.D. Performed By: Edyta Vale [facility] Physical Exam Narrative Seen and examined Patient eating breakfast, [place] toast and she had a choking episode. [place] food is stuck in the mid chest area. Complain that she has dysphagia to solid food for last 1 year, not progressive. Shortness of breath cough slightly better. Physical exam General: Alert, Oriented x3, Cooperative HEENT: Atraumatic, PERRLA, EOMI, Normocephalic Oral: No Gingival or Mucosal Lesions/ Ulcerations Neck: Supple, No JVD, Negative Carotid Bruits Chest wall/Lungs: Air entry diminished in bilateral lung bases. Bilateral coarse crepitations/wheezing Cardiovascular: Regular rate, Regular Rhythm, Normal S1, Normal S2, No M/G/R Abdomen: Esophageal dysphagia bowel Sounds Present, Soft, Non Tender, Non- Distended : No dysuria. No renal angle tenderness. No suprapubic tenderness. Extremities: No edema, Capillary Refill Less than 3 Seconds Skin: No rashes, No breakdown Musculoskeletal: No Tenderness to Palpation of Joints or Extremities Neurological: Cranial nerves II-XII grossly intact, DTR 2+/4. No acute focal neurological deficit. Psych/Mental Status: Normal Affect, Appropriate. Assessment & Plan Assessment/Plan (1) Acute bronchitis with COPD: (2) Respiratory insufficiency: (3) Tobacco abuse: (4) Elevated troponin: (5) Hypomagnesemia: (6) Obesity (BMI 30-39.9): PLAN: Plan 79-year-old female was admitted with shortness of breath for last 4 along with productive cough and mild rhinorrhea. Her pulse ox was 89 to 91% on room air. 1. Acute exacerbation of COPD/emphysema most likely due to influenza A bronchitis: Patient is being admitted in ICU as PCU status. Respiratory was positive of influenza A. Patient started on Tamiflu 75 mg twice daily. Patient is being managed on scheduled bronchodilator, IV Solu-Medrol, Mucinex, incentive spirometry and Pep. 07/11: Patient still has significant symptoms of shortness of breath and cough. Continue above treatment. 07/11: Prescribed 2. Mild elevated troponin possible due to increased cardiac demand: Patient stated about 6 months ago she had some EKG changes and echo findings of minor heart attack as told by [facility]. No documentation to confirm. Troponins 129, 126, 131. D-dimer is elevated 0.92, age-adjusted D-dimer is normal. Modified Wells criteria for PE is 0. 2D echo reviewed. EF 65%, stage I diastolic dysfunction, mild concentric LVH, mild TR and MR suggestive of chronic HFpEF. 07/11: Patient can have outpatient distress to 3. Hypomagnesemia of 1.3 mg/dL: Magnesium sulfate replaced. 07/11, repeat magnesium ordered. Serum phosphorus is normal. Serum potassium normal. 4. Chronic peripheral neuropathy on gabapentin 5. Obesity; with BMI of 37.9 this admission: Weight loss recommended 6. Essential hypertension; on chlorthalidone -hold chlorthalidone. She looks dry. Getting IV fluid normal 7. Hyperlipidemia; on simvastatin - Continue simvastatin. Lipid profile pending 8. DM-2; of unknown control on metformin - Hold metformin and check HgbA1c. Check FSBS q. AC/HS plus lowest-intensity SSI. 9. RA; on hydroxychloroquine - Resume hydroxychloroquine as previous. 10. CKD; stage IIIa - Stable. 11. Chronic iron-deficiency mild anemia: Patient had a normal hemoglobin of 12.1 g/dL and MCV of 97.4 fL present on admission. Iron 63.8% ferritin 55,. 12. Other multiple comorbidities include anxiety and depression on nortriptyline, GERD and fibromyalgia. Degenerative osteoarthritis of left hip status post left THR DVT prophylaxis - Patient ordered full-dose Lovenox x 1 for #3 plus SCD's. Clinical Impression(s) from Imaging Studies Chest X-Ray 07/09/24 23:05 IMPRESSION: No evidence of active intrathoracic disease. Electronically Signed: Tatyana Gao MD at 23:27 EST Reading Location ID and State: [address] [place] [address] Tel , Service support , Echocardiogram 07/10/24 01:34 Interpretation Summary Mild concentric left ventricular hypertrophy. The left ventricular ejection fraction is 65 %. Stage 1 diastolic dysfunction. Moderate mitral annular calcification. Mild (1+) mitral valve insufficiency. Mild tricuspid valve insufficiency. Ordering Physician: Amilcar Farrell Referring Physician: Nadeem Parikh M.D. Performed By: Edyta Vale RDCS Charges/Coding Visit Charges Inpatient E&M: 35002 Subs Hosp L2
[2024-07-11] MEDS: 0.9% Saline Lock 10 ML Syringe IV ×2 (10:46→20:22)
[2024-07-11] MEDS: Cholecalciferol (Vit D3) 125 MCG CAPSULE (5,000 UNITS) PO (10:46)
[2024-07-11] MEDS: Hydroxychloroquine 200 MG Tablet PO (10:46)
[2024-07-11] MEDS: Ascorbic Acid 500 MG Tablet PO (10:46)
[2024-07-11] MEDS: Doxycycline 100 MG in 0.9% Normal Saline (250mL Bag) 250 ML 250 MG IV ×2 (10:50→23:33)
[2024-07-11 10:53] LABS: Magnesium 1.7 mg/dL (1.6-2.6)
[2024-07-11] MEDS: Acetaminophen 325 MG Tablet 650 MG PO (10:59)
--- NOTE | 2024-07-11 11:00 | CASEMGMT ---
EAGLE FERREIRA Face to Face with patient for initial transition planning/care coordination assessment. EAGLE FERREIRA introduced self and role at [facility]. Patient lying in bed, alert and oriented. Patient willing to participate in assessment and is able to answer all questions appropriately. Care providers, pharmacy, and demographics verified. Strata: 2 PCP: Jl Specialists: Lucrecia zigzag elastic attacher; RA Vicky Edmondson Pharmacy: [facility] Insurance: [employer] Prescription Benefit: yes Living Will/HPOA: yes, son Ramez Gonzales LNOK: sons Living Arrangements: Patient lives alone in a single story home with 3 steps and railing to enter the home. Transportation: self, son DME/HHC: Patient has shower chair, BSC, cane, walker, and pulse at home. Patient has had [facility] HHC in the past. Will monitor for home oxygen, patient prefers [facility] for DME. Patient wishes to discharge home, will monitor progress with therapy. RN CM discuss possible need for HHC, patient wants to wait to see how she does with therapy. Patient states he has no further needs or concerns at this time. CM to follow for discharge planning needs that may arise. Disposition Plan: Patient to discharge home with family support and follow-up plans in place. Will monitor for HHC and home oxygen at discharge. Irish MARAVILLA, RN, CM
[2024-07-11 12:21] LABS: Bedside Glucose 117 mg/dL (74-106)
--- NOTE | 2024-07-11 13:17 | CASEMGMT ---
Addendum entered by Edin Downing 07/11/24 15:20: Per Gabrielle, [facility] SOC will be Sunday. DC plan updated. Addendum entered by Edin Downing 07/11/24 13:25: Per therapy, they have worked w/pt today, are aware pt wishes to discharge home, and they are recommending HHC. EAGLE FERREIRA to room. Pt sitting up in chair. She states is agreeable to C and would like [facility], and declines wanting a list of other options. EAGLE FERREIRA placed call to Gabrielle @ [facility], julia made, and they are able to accept pt, w/SOC slated for Sunday or Sunday. Pt made aware and this was added to pt's discharge plan. Original Note: EAGLE FERREIRA NOTE: [facility], OP ST is not recommended. Bertha MARAVILLA RN, CM
[2024-07-11 17:13] LABS: Bedside Glucose 229 mg/dL (74-106)
[2024-07-11] MEDS: Ondansetron 4 MG/2 ML Vial IV (20:21)
[2024-07-11] MEDS: Atorvastatin Calcium 20 MG Tablet PO (23:32)
[2024-07-12] VITALS (10 sets, daily range): BP systolic 124–182; BP diastolic 46–87; PULSE 67–75; RESP 16–22; TEMP 36.1–36.7; O2SAT 94–99; BMI 41.0
[2024-07-12] MEDS: Insulin Lispro 100 UNIT/ML INSULN.PEN SC ×3 (06:55→17:01)
[2024-07-12] MEDS: Ipratropium/Albuterol Sulfate 3 ML AMPUL.NEB INHALATION ×4 (07:10→22:33)
[2024-07-12 07:15] LABS: Bedside Glucose 167 mg/dL (74-106)
[2024-07-12 07:37] LABS: Anion Gap 6 (5-15); BUN 28 mg/dL (7-18); Calcium,Total 8.7 mg/dL (8.5-10.1); Chloride 105 mmol/L (98-107); Creatinine, Serum 0.93 mg/dL (0.55-1.02); EST Glomerular Filtration Rate 62 mL/min (>60); Est Glom Filt Rate - Afr Amer 75 mL/min (>60); Estimated Creatinine Clearance 51.33 ml/min; Glucose 184 mg/dL (74-106); Potassium 4.7 mmol/L (3.5-5.1); Sodium Level 137 mmol/L (136-145)
[2024-07-12] MEDS: Hydroxychloroquine 200 MG Tablet PO (10:03)
[2024-07-12] MEDS: Gabapentin 100 MG Capsule PO ×3 (10:03→17:00)
[2024-07-12] MEDS: Ondansetron 4 MG/2 ML Vial IV ×2 (10:03→19:22)
[2024-07-12] MEDS: 0.9% Saline Lock 10 ML Syringe IV ×4 (10:03→21:43)
[2024-07-12] MEDS: Lactobacillis Acidophilus 1 CAP PO ×4 (10:04→21:42)
[2024-07-12] MEDS: Oseltamivir Phosphate 75 MG Capsule PO ×2 (10:04→21:42)
[2024-07-12] MEDS: Pantoprazole Sodium 20 MG Tablet PO ×2 (10:04→21:42)
[2024-07-12] MEDS: Ascorbic Acid 500 MG Tablet PO (10:05)
[2024-07-12] MEDS: Fluticasone 0.05% 1 SPRAY NASAL.SRY NASAL (10:06)
[2024-07-12] MEDS: Cholecalciferol (Vit D3) 125 MCG CAPSULE (5,000 UNITS) PO (10:06)
[2024-07-12] MEDS: Doxycycline 100 MG in 0.9% Normal Saline (250mL Bag) 250 ML 250 MG IV ×2 (11:22→21:42)
[2024-07-12 11:54] LABS: Bedside Glucose 189 mg/dL (74-106)
[2024-07-12 14:16] LABS: Absolute Lymphocyte Count 0.65 X10^3/uL (0.83-4.51); Basophil# 0.01 X10^3/uL; Basophil% 0.1 % (0-1); Eosinophil# 0.01 X10^3/uL; Eosinophils% 0.1 % (0-5); Hematocrit 36.9 % (37-47); Hemoglobin 11.8 g/dL (12.0-15.0); Lymphocyte # 0.65 X10^3/ul (0.83-4.51); Lymphocyte % 7.1 % (19-41); Mean Corpuscular Hgb 31.4 pg (27.0-32.0); Mean Corpuscular Volume 98.1 fL (81-99); Mean Platelet Vol. 10.3 fl (6.2-12.0); Monocyte# 0.42 X10^3/uL; Monocyte% 4.6 % (0-10); NRBC Flagged by Analyzer 0 % (0-5); Neutrophil # 7.98 X10^3/uL (2.7-7.7); Neutrophil % 87.8 % (47-70); Platelet Count 172 K/mm3 (150-450); RBC Distribution Width CV 11.9 % (11.6-14.6); RBC Distribution Width SD 43.6 fl (35.1-43.9); Red Blood Count 3.76 M/mm3 (4.2-5.4); White Blood Count 9.1 K/mm3 (4.4-11.0)
--- NOTE | 2024-07-12 16:12 | PN.HOSP_ITS ---
Reason for Visit Reason for Visit: Diagnoses Obesity, unspecified (07/10/24) Hypomagnesemia (07/10/24) Acute bronchitis, unspecified (07/10/24) Chronic obstructive pulmonary disease with (acute) lower respiratory infection (07/10/24) Other abnormalities of breathing (07/10/24) Other specified abnormal findings of blood chemistry (07/10/24) Tobacco use (07/10/24) Objective Data Objective Data Vital Signs: Vital Signs Temp Pulse Resp BP Pulse Ox O2 Del Method O2 Flow Rate 97.7 F L 75 16 169/62 H 99 Nasal Cannula 2 07/12/24 10:00 07/12/24 15:30 07/12/24 15:30 07/12/24 10:15 07/12/24 10:10 07/12/24 10:10 07/12/24 10:10 Oxygen Flow Rate (L/min) 2 Oxygen Delivery Method Nasal Cannula Weight: 203 lb 4.259 oz Body Mass Index (BMI) 41.0 Intake & Output: Intake and Output for Last 24 Hours 07/10/24 07/11/24 07/12/24 23:59 23:59 23:59 Intake Total 1824.00 / 1824.00 260 / 610 1530 / 1530 Output Total 250 / 250 400 / 400 Balance 1574.00 / 1574.00 -140 / 210 1530 / 1530 Lab / Micro Data 07/12/24 06:09 07/12/24 06:09 Labs: Laboratory Results - last 24 hr 07/11/24 16:48: POC Glucose 229 H 07/12/24 06:09: WBC 9.1, RBC 3.76 L, Hgb 11.8 L, Hct 36.9 L, MCV 98.1, MCH 31.4, MCHC 32.0, RDW Std Deviation 43.6, RDW Coeff of Nina 11.9, Plt Count 172, MPV 10.3, Immature Gran % (Auto) 0.300, Neut % (Auto) 87.8 H, Lymph % (Auto) 7.1 L, [place] % (Auto) 4.6, Eos % (Auto) 0.1, Baso % (Auto) 0.1, Absolute Neuts (auto) 8.0 H, Absolute Lymphs (auto) 0.65 L, Nucleated RBC % 0, Sodium 137, Potassium 4.7, Chloride 105, Carbon Dioxide 26.0, Anion Gap 6, BUN 28 H, Creatinine 0.93, Estim Creat Clear Calc 51.33, Est GFR (MDRD) Af Amer 75, Est GFR (MDRD) Non-Af 62, BUN/Creatinine Ratio 30.0 H, Glucose 184 H, Calcium 8.7 07/12/24 06:53: POC Glucose 167 H 07/12/24 11:25: POC Glucose 189 H Micro: Microbiology 07/10/24 02:20 Mucosa - Nasopharyngeal Respiratory Panel (PCR) - Final Influenza A (Subtype H3) 07/09/24 22:42 Mucosa - Nose SARS-CoV-2, Influenza & RSV (PCR) - Final Physical Exam Narrative Seen and examined Patient was evaluated by speech therapist. Recommended soft and bite sized food with compensatory strategies. Patient unhappy that she cannot have full nutritious diet. History of dysphagia to solid food for last 1 year, not progressive. Shortness of breath cough slightly better but is still wheezing Physical exam General: Alert, Oriented x3, Cooperative HEENT: Atraumatic, PERRLA, EOMI, Normocephalic Oral: No Gingival or Mucosal Lesions/ Ulcerations Neck: Supple, No JVD, Negative Carotid Bruits Chest wall/Lungs: Air entry diminished in bilateral lung bases. Bilateral coarse crepitations/wheezing, slightly better Cardiovascular: Regular rate, Regular Rhythm, Normal S1, Normal S2, No M/G/R Abdomen: Esophageal dysphagia bowel Sounds Present, Soft, Non Tender, Non- Distended : No dysuria. No renal angle tenderness. No suprapubic tenderness. Extremities: No edema, Capillary Refill Less than 3 Seconds Skin: No rashes, No breakdown Musculoskeletal: No Tenderness to Palpation of Joints or Extremities Neurological: Cranial nerves II-XII grossly intact, DTR 2+/4. No acute focal neurological deficit. Psych/Mental Status: Normal Affect, Appropriate. Assessment & Plan Assessment/Plan (1) Acute bronchitis with COPD: (2) Respiratory insufficiency: (3) Tobacco abuse: (4) Elevated troponin: (5) Hypomagnesemia: (6) Obesity (BMI 30-39.9): PLAN: Plan 79-year-old female was admitted with shortness of breath for last 4 along with productive cough and mild rhinorrhea. Her pulse ox was 89 to 91% on room air. 1. Acute exacerbation of COPD/emphysema most likely due to influenza A bronchitis: Patient is being admitted in ICU as PCU status. Respiratory was positive of influenza A. Patient started on Tamiflu 75 mg twice daily. Patient is being managed on scheduled bronchodilator, IV Solu-Medrol, Mucinex, incentive spirometry and Pep. 07/11: Patient still has significant symptoms of shortness of breath and cough. Continue above treatment. 07/12: Patient gradually getting better. 2. Mild elevated troponin possible due to increased cardiac demand: Patient stated about 6 months ago she had some EKG changes and echo findings of minor heart attack as told by [facility]. No documentation to confirm. Troponins 129, 126, 131. D-dimer is elevated 0.92, age-adjusted D-dimer is normal. Modified Wells criteria for PE is 0. 2D echo reviewed. EF 65%, stage I diastolic dysfunction, mild concentric LVH, mild TR and MR suggestive of chronic HFpEF. 07/11: Patient can have outpatient stress test 07/12: No acute chest pain or pressure. 3. Hypomagnesemia of 1.3 mg/dL: Magnesium sulfate replaced. 07/11, repeat magnesium ordered. Serum phosphorus is normal. Serum potassium normal. 07/12: Repeat magnesium is 1.7. On oral magnesium treatment 4. Chronic peripheral neuropathy on gabapentin 5. Obesity; with BMI of 37.9 this admission: Weight loss recommended 6. Essential hypertension; on chlorthalidone -hold chlorthalidone. She looks dry. Getting IV fluid normal 7. Hyperlipidemia; on simvastatin - Continue simvastatin. Lipid profile pending 8. DM-2; of unknown control on metformin - Hold metformin and check HgbA1c. Check FSBS q. AC/HS plus lowest-intensity SSI. 07/12: Glucoses between 167-229. 184 in BMP. 9. RA; on hydroxychloroquine - Resume hydroxychloroquine as previous. 10. CKD; stage IIIa - Stable. 07/12 kidney function on baseline 11. Chronic iron-deficiency mild anemia: Patient had a normal hemoglobin of 12.1 g/dL and MCV of 97.4 fL present on admission. Iron 63.8% ferritin 55,. 12. Other multiple comorbidities include anxiety and depression on nortriptyline, GERD and fibromyalgia. Degenerative osteoarthritis of left hip status post left THR DVT prophylaxis - Patient ordered full-dose Lovenox x 1 for #3 plus SCD's. Microbiology Past 72 Hours 07/10/24 02:20 Mucosa - Nasopharyngeal Respiratory Panel (PCR) - Final Influenza A (Subtype H3) 07/09/24 22:42 Mucosa - Nose SARS-CoV-2, Influenza & RSV (PCR) - Final Laboratory Results 07/11/24 16:48: POC Glucose 229 H 07/12/24 06:09: WBC 9.1, RBC 3.76 L, Hgb 11.8 L, Hct 36.9 L, MCV 98.1, MCH 31.4, MCHC 32.0, RDW Std Deviation 43.6, RDW Coeff of Nina 11.9, Plt Count 172, MPV 10.3, Immature Gran % (Auto) 0.300, Neut % (Auto) 87.8 H, Lymph % (Auto) 7.1 L, [place] % (Auto) 4.6, Eos % (Auto) 0.1, Baso % (Auto) 0.1, Absolute Neuts (auto) 8.0 H, Absolute Lymphs (auto) 0.65 L, Nucleated RBC % 0, Sodium 137, Potassium 4.7, Chloride 105, Carbon Dioxide 26.0, Anion Gap 6, BUN 28 H, Creatinine 0.93, Estim Creat Clear Calc 51.33, Est GFR (MDRD) Af Amer 75, Est GFR (MDRD) Non-Af 62, BUN/Creatinine Ratio 30.0 H, Glucose 184 H, Calcium 8.7 07/12/24 06:53: POC Glucose 167 H 07/12/24 11:25: POC Glucose 189 H Clinical Impression(s) from Imaging Studies Chest X-Ray 07/09/24 23:05 IMPRESSION: No evidence of active intrathoracic disease. Electronically Signed: Tatyana Gao MD at 23:27 EST , Echocardiogram 07/10/24 01:34 Interpretation Summary Mild concentric left ventricular hypertrophy. The left ventricular ejection fraction is 65 %. Stage 1 diastolic dysfunction. Moderate mitral annular calcification. Mild (1+) mitral valve insufficiency. Mild tricuspid valve insufficiency. Ordering Physician: Amilcar Farrell Referring Physician: Nadeem Parikh M.D. Performed By: Edyta Vale RDCS Charges/Coding Visit Charges Inpatient E&M: 88425 Subs Hosp L2
[2024-07-12] MEDS: Magnesium Chloride 64 MG Delay Rel.Tablet 128 MG PO ×2 (17:01→21:42)
[2024-07-12] MEDS: Insulin Glargine-YFGN 100 UNIT/ML Pen 8 UNIT SC (17:01)
[2024-07-12] MEDS: guaiFENesin/D-Methorphan TAB.SR.12H 1 TABLET PO ×2 (17:02→21:42)
[2024-07-12 17:14] LABS: Bedside Glucose 187 mg/dL (74-106)
[2024-07-12 17:17] LABS: Bedside Glucose 140 mg/dL (74-106)
[2024-07-12] MEDS: Atorvastatin Calcium 20 MG Tablet PO (21:42)
[2024-07-12 22:10] LABS: Bedside Glucose 147 mg/dL (74-106)
[2024-07-13] VITALS (8 sets, daily range): BP systolic 152–156; BP diastolic 62–64; PULSE 74–80; RESP 16–20; TEMP 35.8–36.6; O2SAT 90–94; BMI 38.4
[2024-07-13] MEDS: Insulin Lispro 100 UNIT/ML INSULN.PEN SC ×2 (06:15→11:20)
[2024-07-13] MEDS: 0.9% Saline Lock 10 ML Syringe IV ×3 (06:15→10:18)
[2024-07-13] MEDS: Ondansetron 4 MG/2 ML Vial IV (06:22)
[2024-07-13 06:45] LABS: Bedside Glucose 158 mg/dL (74-106)
[2024-07-13] MEDS: Albuterol 2.5 MG/3 ML VIAL.NEB. INHALATION ×2 (07:25→13:09)
[2024-07-13] MEDS: Gabapentin 100 MG Capsule PO ×2 (08:28→11:25)
[2024-07-13] MEDS: Ascorbic Acid 500 MG Tablet PO (08:28)
[2024-07-13] MEDS: Losartan Potassium 50 MG Tablet PO (08:28)
[2024-07-13] MEDS: Cholecalciferol (Vit D3) 125 MCG CAPSULE (5,000 UNITS) PO (08:28)
[2024-07-13] MEDS: Pantoprazole Sodium 20 MG Tablet PO (08:28)
[2024-07-13] MEDS: Lactobacillis Acidophilus 1 CAP PO (08:28)
[2024-07-13] MEDS: Magnesium Chloride 64 MG Delay Rel.Tablet 128 MG PO (08:28)
[2024-07-13] MEDS: Hydroxychloroquine 200 MG Tablet PO (08:28)
[2024-07-13] MEDS: guaiFENesin/D-Methorphan TAB.SR.12H 1 TABLET PO (08:29)
[2024-07-13] MEDS: Oseltamivir Phosphate 75 MG Capsule PO (08:29)
[2024-07-13] MEDS: Insulin Glargine-YFGN 100 UNIT/ML Pen 8 UNIT SC (08:29)
[2024-07-13] MEDS: Fluticasone 0.05% 1 SPRAY NASAL.SRY NASAL (08:29)
--- NOTE | 2024-07-13 09:09 | DCINST_ITS ---
Discharge Instructions Diet Discharge Diet: 2000 mg Sodium Diet and - (Soft and bite-size.) DC O2, CPAP, BIPAP needs Home O2 Discharge instructions: No Dressing / Incision Discharge Activity: Return to Normal Activity Weight Bearing Status: Weight bearing as tolerated Dressing / Incision Call your doctor if you observe: Fever of 101 or Higher, Coldness, Increased Pain, Numbness or Tingling, Change in Color, Inability to urinate, Inability to have a bowel movement, Shortness of breath, Dizziness, Fainting spells, Swelling in the ankles, Chest pain, Prolonged hiccupping, Increased palpitations (irregular heartbeat) and Calf discomfort Follow Up Care When: IN 2 WEEKS Test Results: Test results from this visit will be discussed in further detail at your follow- up appointment, if applicable. Discharge Plan Admission Admit Date/Time: 07/10/24 01:02 Attending Provider: Omero Black Primary Care Provider: Nadeem Parikh Consulting Providers: Amilcar Farrell Instructions Additional Instructions / Restrictions: Follow-up with the applications engineering manager in weeks referred by PCP. Either Dr. Sobeida Reddy or Dr. Lv Reddy. Discharge Orders/Prescriptions Prescriptions: New losartan 50 mg Tablet 50 mg PO DAILY 30 Days Qty: 30 0RF oseltamivir 75 mg Capsule 75 mg PO BID Qty: 3 0RF Mucinex DM 30-600 mg Tablet Extended Release 12 Hr 1 tab PO BID 7 Days Qty: 14 0RF prednisone 20 mg tablet 40 mg PO DAILY 5 Days Qty: 10 0RF Continued simvastatin 10 MG tablet 40 mg PO QHS Patient Comments: CHOLESTEROL nortriptyline 25 MG capsule 50 mg PO QHS Patient Comments: SLEEP omeprazole 20 MG capsule 20 mg PO BID Patient Comments: ACID REFLUX gabapentin 100 MG capsule 100 mg PO TIDCM Patient Comments: FIBROMYALGIA hydroxychloroquine 200 MG tablet 200 mg PO DAILYCM Patient Comments: RA albuterol sulfate [Ventolin HFA] 1 INHALER inhaler 2 puff inhalation Q6H PRN PRN (Reason: Wheezing) Rx Instructions: 2 PUFFS Q6HRS PRN WHEEZING diphenhydramine HCl [Benadryl] 25 mg Capsule 25 mg PO Q6H PRN PRN (Reason: ITCHING/HIVES) acetaminophen 500 mg Tablet 1,000 mg PO Q6H PRN PRN (Reason: Pain Score 1-3) Qty: 0 0RF ascorbic acid (vitamin C) 500 mg Tablet 500 mg PO BREAKFAST 30 Days Qty: 30 0RF fluticasone propionate 50 mcg/actuation [place],Suspension 1 spray NASAL DAILY Qty: 0 0RF chlorthalidone 25 mg tablet 25 mg PO DAILY ketorolac 0.5 % drops 1 drp ophthalmic (eye) Q8H polymyxin B sulf-trimethoprim 10,000 unit- 1 mg/mL drops 1 drp RIGHT EYE 4X/DAY metformin 500 mg Tablet 500 mg PO DINNER Referrals / Follow Up: Nadeem Parikh MD [Primary Care Provider] - Within 2 Weeks Lv Reddy DO [Med Staff - Active Staff] - Within 1 Month Disposition Disposition (needs filled in before D/C Order can be placed): Home Health Service
--- NOTE | 2024-07-13 10:00 | PCM.DC.SUM ---
Providers Date of Admission: 07/10/24 Date of Discharge: 07/13/24 Primary Care Physician: Dr. Nadeem Parikh MD Reason For Visit: AE COPD, ACUTE BACTERIAL BRONCHITIS, RESPIRATORY Diagnosis Discharge Diagnosis (1) Acute bronchitis with COPD: Status: Chronic Code(s): J44.0 - Chronic obstructive pulmonary disease with (acute) lower respiratory infection; J20.9 - Acute bronchitis, unspecified (2) Respiratory insufficiency: Status: Acute Code(s): R06.89 - Other abnormalities of breathing (3) Tobacco abuse: Status: Acute Code(s): Z72.0 - Tobacco use (4) Elevated troponin: Status: Acute Code(s): R79.89 - Other specified abnormal findings of blood chemistry (5) Hypomagnesemia: Status: Acute Code(s): E83.42 - Hypomagnesemia (6) Obesity (BMI 30-39.9): Status: Acute Code(s): E66.9 - Obesity, unspecified Plan 79-year-old female was admitted with shortness of breath for last 4 along with productive cough and mild rhinorrhea. Her pulse ox was 89 to 91% on room air. 1. Acute exacerbation of COPD/emphysema most likely due to influenza A bronchitis: Patient is being admitted in ICU as PCU status. Respiratory was positive of influenza A. Patient started on Tamiflu 75 mg twice daily. Patient is being managed on scheduled bronchodilator, IV Solu-Medrol, Mucinex, incentive spirometry and Pep. 07/11: Patient still has significant symptoms of shortness of breath and cough. Continue above treatment. 07/12: Patient gradually getting better. 07/13: Patient is breathing better. Does not need oxygen. Discharged on Mucinex DM and prednisone Burst Therapy, 40 Mg for 5 Days. Advised to follow-up with the pulmonary clinic in two 1 month. 2. Mild elevated troponin possible due to increased cardiac demand: Patient stated about 6 months ago she had some EKG changes and echo findings of minor heart attack as told by [facility]. No documentation to confirm. Troponins 129, 126, 131. D-dimer is elevated 0.92, age-adjusted D-dimer is normal. Modified Wells criteria for PE is 0. 2D echo reviewed. EF 65%, stage I diastolic dysfunction, mild concentric LVH, mild TR and MR suggestive of chronic HFpEF. 07/11: Patient can have outpatient stress test 07/12: No acute chest pain or pressure. 3. Hypomagnesemia of 1.3 mg/dL: Magnesium sulfate replaced. 07/11, repeat magnesium ordered. Serum phosphorus is normal. Serum potassium normal. 07/12: Repeat magnesium is 1.7. On oral magnesium treatment 4. Chronic peripheral neuropathy on gabapentin 5. Obesity; with BMI of 37.9 this admission: Weight loss recommended 6. Essential hypertension; on chlorthalidone -hold chlorthalidone. She looks dry. Getting IV fluid normal 7. Hyperlipidemia; on simvastatin - Continue simvastatin. Lipid profile pending 8. DM-2; of unknown control on metformin - Hold metformin and check HgbA1c. Check FSBS q. AC/HS plus lowest-intensity SSI. 07/12: Glucoses between 167-229. 184 in BMP. 9. RA; on hydroxychloroquine - Resume hydroxychloroquine as previous. 10. CKD; stage IIIa - Stable. 07/12 kidney function on baseline 11. Chronic iron-deficiency mild anemia: Patient had a normal hemoglobin of 12.1 g/dL and MCV of 97.4 fL present on admission. Iron 63.8% ferritin 55,. 07/13: Hemoglobin on baseline 12. Other multiple comorbidities include anxiety and depression on nortriptyline, GERD and fibromyalgia. Degenerative osteoarthritis of left hip status post left THR DVT prophylaxis - Patient SCD's. Discharge medication reconciliation done. Discharge follow-up instructions completed. Discharge process discussed with the patient and all questions were answered to patient's satisfaction. Follow with PCP in 1 to 2 weeks Total time spent, exact 35 minutes on discharge meds reconciliation, examination, coordination of care with nurses and ancillary staff, review of imaging and blood test and discussion with the patient on follow-up instructions. Microbiology Past 72 Hours 07/10/24 02:20 Mucosa - Nasopharyngeal Respiratory Panel (PCR) - Final Influenza A (Subtype H3) 07/09/24 22:42 Mucosa - Nose SARS-CoV-2, Influenza & RSV (PCR) - Final Laboratory Results 07/11/24 16:48: POC Glucose 229 H 07/12/24 06:09: WBC 9.1, RBC 3.76 L, Hgb 11.8 L, Hct 36.9 L, MCV 98.1, MCH 31.4, MCHC 32.0, RDW Std Deviation 43.6, RDW Coeff of Nina 11.9, Plt Count 172, MPV 10.3, Immature Gran % (Auto) 0.300, Neut % (Auto) 87.8 H, Lymph % (Auto) 7.1 L, Yancey % (Auto) 4.6, Eos % (Auto) 0.1, Baso % (Auto) 0.1, Absolute Neuts (auto) 8.0 H, Absolute Lymphs (auto) 0.65 L, Nucleated RBC % 0, Sodium 137, Potassium 4.7, Chloride 105, Carbon Dioxide 26.0, Anion Gap 6, BUN 28 H, Creatinine 0.93, Estim Creat Clear Calc 51.33, Est GFR (MDRD) Af Amer 75, Est GFR (MDRD) Non-Af 62, BUN/Creatinine Ratio 30.0 H, Glucose 184 H, Calcium 8.7 07/12/24 06:53: POC Glucose 167 H 07/12/24 11:25: POC Glucose 189 H Clinical Impression(s) from Imaging Studies Chest X-Ray 07/09/24 23:05 IMPRESSION: No evidence of active intrathoracic disease. Electronically Signed: Tatyana Gao MD at 23:27 EST , Echocardiogram 07/10/24 01:34 Interpretation Summary Mild concentric left ventricular hypertrophy. The left ventricular ejection fraction is 65 %. Stage 1 diastolic dysfunction. Moderate mitral annular calcification. Mild (1+) mitral valve insufficiency. Mild tricuspid valve insufficiency. Ordering Physician: Amilcar Farrell Referring Physician: Nadeem Parikh M.D. Performed By: Edyta Vale RDCS Medications at Discharge Home Medications albuterol sulfate 90 mcg/actuation aerosol inhaler (Ventolin HFA) 2 puff inhalation Q6H PRN PRN Wheezing 06/23/15 gabapentin 100 mg capsule 100 mg PO TIDCM nerve pain 06/23/15 hydroxychloroquine 200 mg tablet 200 mg PO DAILYCM Check with primary doctor 06/23/15 nortriptyline 25 mg capsule 50 mg PO QHS mental health 06/23/15 omeprazole 20 mg capsule,delayed release 20 mg PO BID reflux 06/23/15 simvastatin 10 mg tablet 40 mg PO QHS cholesterol 06/23/15 diphenhydramine HCl 25 mg capsule (Benadryl) 25 mg PO Q6H PRN PRN ITCHING/HIVES 10/27/22 acetaminophen 500 mg tablet 1,000 mg (2 x 500 mg) PO Q6H PRN PRN Pain Score 1-3 #0 tabs 11/13/22 ascorbic acid (vitamin C) 500 mg tablet 500 mg PO BREAKFAST vitamin 30 days #30 tabs 11/13/22 fluticasone propionate 50 mcg/actuation nasal spray,suspension 1 spray NASAL DAILY allergies #0 grams 11/13/22 chlorthalidone 25 mg tablet 25 mg PO DAILY blood pressure 07/10/24 ketorolac 0.5 % eye drops 1 drp ophthalmic (eye) Q8H eye health 07/10/24 metformin 500 mg tablet 500 mg PO DINNER diabetes 07/10/24 polymyxin B sulfate 10,000 unit-trimethoprim 1 mg/mL eye drops 1 drp RIGHT EYE 4X/DAY eye health 07/10/24 dextromethorphan-guaifenesin 30 mg-600 mg tablet extended [id number] hr (Mucinex DM) 1 tab PO BID 7 days #14 tabs 07/13/24 losartan 50 mg tablet 50 mg PO DAILY 30 days #30 tabs 07/13/24 oseltamivir 75 mg capsule 75 mg PO BID #3 caps 07/13/24 prednisone 20 mg tablet 40 mg (2 x 20 mg) PO DAILY 5 days #10 tabs 07/13/24 Physical Exam Narrative Seen and examined No acute issues overnight. Patient having incentive spirometry up to 1000 mL. Shortness of breath resolved. No cough Patient was evaluated by speech therapist. Recommended soft and bite sized food with compensatory strategies. History of dysphagia to solid food for last 1 year, not progressive. Physical exam General: Alert, Oriented x3, Cooperative HEENT: Atraumatic, PERRLA, EOMI, Normocephalic Oral: No Gingival or Mucosal Lesions/ Ulcerations Neck: Supple, No JVD, Negative Carotid Bruits Chest wall/Lungs: Air entry diminished in bilateral lung bases. Lungs clear Cardiovascular: Regular rate, Regular Rhythm, Normal S1, Normal S2, No M/G/R Abdomen: Esophageal dysphagia bowel Sounds Present, Soft, Non Tender, Non-Distended : No dysuria. No renal angle tenderness. No suprapubic tenderness. Extremities: No edema, Capillary Refill Less than 3 Seconds Skin: No rashes, No breakdown Musculoskeletal: No Tenderness to Palpation of Joints or Extremities Neurological: Cranial nerves II-XII grossly intact, DTR 2+/4. No acute focal neurological deficit. Psych/Mental Status: Normal Affect, Appropriate. Weight / BMI Weight Weight: 190 lb 4.143 oz Body Mass Index (BMI) 38.4 ABG / Lab / Microbiology Data 07/12/24 06:09 07/12/24 06:09 Laboratory: Laboratory Results - last 24 hr 07/11/24 23:23: POC Glucose 140 H 07/12/24 06:09: WBC 9.1, RBC 3.76 L, Hgb 11.8 L, Hct 36.9 L, MCV 98.1, MCH 31.4, MCHC 32.0, RDW Std Deviation 43.6, RDW Coeff of Nina 11.9, Plt Count 172, MPV 10.3, Immature Gran % (Auto) 0.300, Neut % (Auto) 87.8 H, Lymph % (Auto) 7.1 L, Yancey % (Auto) 4.6, Eos % (Auto) 0.1, Baso % (Auto) 0.1, Absolute Neuts (auto) 8.0 H, Absolute Lymphs (auto) 0.65 L, Nucleated RBC % 0 07/12/24 11:25: POC Glucose 189 H 07/12/24 16:52: POC Glucose 187 H 07/12/24 21:34: POC Glucose 147 H 07/13/24 06:13: POC Glucose 158 H Microbiology: Microbiology 07/10/24 02:20 Mucosa - Nasopharyngeal Respiratory Panel (PCR) - Final Influenza A (Subtype H3) 07/09/24 22:42 Mucosa - Nose SARS-CoV-2, Influenza & RSV (PCR) - Final D/C Instructions Discharge Diet: 2000 mg Sodium Diet and - (Soft and bite-size.) Weight Bearing Status: Weight bearing as tolerated Call your doctor if you observe: Fever of 101 or Higher, Coldness, Increased Pain, Numbness or Tingling, Change in Color, Inability to urinate, Inability to have a bowel movement, Shortness of breath, Dizziness, Fainting spells, Swelling in the ankles, Chest pain, Prolonged hiccupping, Increased palpitations (irregular heartbeat) and Calf discomfort DC O2, CPAP, BIPAP Needs Home O2 Discharge instructions: No When: IN 2 WEEKS Meaningful Use Info Meaningful Use Meaningful Use Diagnoses (Choose all that apply): None applicable Ischemic Stroke Statin Dosing Therapy Reference: STATIN DOSE THERAPY REFERENCE: * Patients > 75 years receive moderate or high dose statin therapy. * Patients 75 years or YOUNGER should receive HIGH intensity statin dose unless contraindicated. You will be required to document reason for non-treatment if statin daily dose does not meet guidelines. HIGH DOSE STATIN THERAPY DAILY Atorvastatin > than or = to 40 mg Rosuvastatin > than or = to 20 mg Amlodipine + Atorvastatin > than or = to 2.5/40 mg Ezetimibe + Simvastatin 10/80 mg Simvastatin 80mg Discharge Plan Admission Admit Date/Time: 07/10/24 01:02 Attending Provider: Omero Black Primary Care Provider: Nadeem Parikh Consulting Providers: Amilcar Farrell Instructions Additional Instructions / Restrictions: Follow-up with the director of research center in weeks referred by PCP. Either Dr. Sobeida Reddy or Dr. Lv Reddy. Discharge Orders/Prescriptions Prescriptions: New losartan 50 mg Tablet 50 mg PO DAILY 30 Days Qty: 30 0RF oseltamivir 75 mg Capsule 75 mg PO BID Qty: 3 0RF Mucinex DM 30-600 mg Tablet Extended Release 12 Hr 1 tab PO BID 7 Days Qty: 14 0RF prednisone 20 mg tablet 40 mg PO DAILY 5 Days Qty: 10 0RF Continued simvastatin 10 MG tablet 40 mg PO QHS Patient Comments: CHOLESTEROL nortriptyline 25 MG capsule 50 mg PO QHS Patient Comments: SLEEP omeprazole 20 MG capsule 20 mg PO BID Patient Comments: ACID REFLUX gabapentin 100 MG capsule 100 mg PO TIDCM Patient Comments: FIBROMYALGIA hydroxychloroquine 200 MG tablet 200 mg PO DAILYCM Patient Comments: RA albuterol sulfate [Ventolin HFA] 1 INHALER inhaler 2 puff inhalation Q6H PRN PRN (Reason: Wheezing) Rx Instructions: 2 PUFFS Q6HRS PRN WHEEZING diphenhydramine HCl [Benadryl] 25 mg Capsule 25 mg PO Q6H PRN PRN (Reason: ITCHING/HIVES) acetaminophen 500 mg Tablet 1,000 mg PO Q6H PRN PRN (Reason: Pain Score 1-3) Qty: 0 0RF ascorbic acid (vitamin C) 500 mg Tablet 500 mg PO BREAKFAST 30 Days Qty: 30 0RF fluticasone propionate 50 mcg/actuation [place],Suspension 1 spray NASAL DAILY Qty: 0 0RF chlorthalidone 25 mg tablet 25 mg PO DAILY ketorolac 0.5 % drops 1 drp ophthalmic (eye) Q8H polymyxin B sulf-trimethoprim 10,000 unit- 1 mg/mL drops 1 drp RIGHT EYE 4X/DAY metformin 500 mg Tablet 500 mg PO DINNER Referrals / Follow Up: Lv Reddy DO [Med Staff - Active Staff] - Within 1 Month Patric Loomis DO [Med Staff - Active Staff] - Within 1 Month (Chronic dysphagia) Nadeem Parikh MD [Primary Care Provider] - Within 2 Weeks Disposition Disposition (needs filled in before D/C Order can be placed): Home Health Service Charges/Coding Visit Charges Inpatient E&M: 04576 Disch Hosp >30min
[2024-07-13] MEDS: Lactulose 20 GM/30 ML UDC PO (10:18)
[2024-07-13] MEDS: Senna/Docusate Sodium 1 Tablet 2 TABLET PO (10:18)
[2024-07-13] MEDS: Doxycycline 100 MG in 0.9% Normal Saline (250mL Bag) 250 ML 250 MG IV (10:23)
[2024-07-13] MEDS: Enoxaparin 40 MG/0.4 ML Syringe SC (11:21)
[2024-07-13 11:42] LABS: Bedside Glucose 197 mg/dL (74-106)
== END 2024-07-13 14:40 | disposition home health service (06) | DRG 191 ==
LOC: ED 07-10 00:37 → ICU 07-10 01:16 → PCU 07-11 13:25
PROVIDERS: Admitting Provider Internal Medicine; Emergency Provider Emergency Medicine; PCP Internal Medicine; Visit Provider Internal Medicine
DX: J44.0 Chronic obstructive pulmonary disease with (acute) lower respiratory infection (principal); I13.0 Hypertensive heart and chronic kidney disease with heart failure and stage 1 through stage 4 chronic kidney disease, or unspecified chronic kidney disease; I24.89 Other forms of acute ischemic heart disease; I50.32 Chronic diastolic (congestive) heart failure; R13.10 Dysphagia, unspecified; E11.22 Type 2 diabetes mellitus with diabetic chronic kidney disease; D50.9 Iron deficiency anemia, unspecified; E11.42 Type 2 diabetes mellitus with diabetic polyneuropathy; N18.31 Chronic kidney disease, stage 3a; M06.9 Rheumatoid arthritis, unspecified; J44.1 Chronic obstructive pulmonary disease with (acute) exacerbation; F32.A Depression, unspecified; E66.9 Obesity, unspecified; M16.12 Unilateral primary osteoarthritis, left hip; M79.7 Fibromyalgia; E78.5 Hyperlipidemia, unspecified; K21.9 Gastro-esophageal reflux disease without esophagitis; E83.42 Hypomagnesemia; J43.9 Emphysema, unspecified; J10.1 Influenza due to other identified influenza virus with other respiratory manifestations; F17.210 Nicotine dependence, cigarettes, uncomplicated; J20.8 Acute bronchitis due to other specified organisms; R09.02 Hypoxemia; R79.89 Other specified abnormal findings of blood chemistry; Z11.52 Encounter for screening for COVID-19; Z68.37 Body mass index [BMI] 37.0-37.9, adult; Z79.84 Long term (current) use of oral hypoglycemic drugs; Z79.891 Long term (current) use of opiate analgesic; Z79.1 Long term (current) use of non-steroidal anti-inflammatories (NSAID); Z79.899 Other long term (current) drug therapy
CPT/HCPCS: 36415; 71046; 80048; 80053; 82728; 82962; 83036; 83540; 83550; 83735; 84100; 84443; 84484; 85025; 85379; 87631; 87633; 92526; 92610; 93005; 93306; 94640; 94668; 97162; 97166; 97530; 97802; 99252; 99285; 99406; Q9957; A4216; G0463; J2405